=== PATIENT | male | born 1970 | race Caucasian/White ===

== ENCOUNTER → 2020-08-05 08:43 | Outpatient (CLI) | payer OTHER, SELFPAY ==
--- NOTE | 2020-08-06 12:53 | PFT ---
INTRODUCTION: The patient is a 50-year-old male that presents for pulmonary function studies secondary to a diagnosis of dyspnea on exertion. Respiratory therapy reports good patient effort. Bronchodilators were used during testing. INTERPRETATION: Forced expiration spirometry demonstrates no evidence of a large airways obstructive ventilatory defect. There was no significant response to aerosolized bronchodilators. Spirograms are of good quality and plateau normally. The respiratory flow volume loop is normal. Body plethysmography was performed and reveals lung volumes to be within normal limits. Diffusing capacity by single breath CO is also within normal limits. IMPRESSION: Grossly normal pulmonary function studies.
== END ==
PROVIDERS: PCP Nurse Practitioner; Referring Provider Nurse Practitioner; Visit Provider Nurse Practitioner
DX: R06.02 Shortness of breath (principal)
CPT/HCPCS: 94060; 94726; 94729

== ENCOUNTER 2020-11-29 12:03 | Emergency (ER) | payer OTHER, SELFPAY ==
[2020-11-29 12:04] VITALS: BP 152/95; PULSE 70; RESP 20; TEMP 35.9; BMI 26.2
[2020-11-29 12:55] LABS: Absolute Lymphocyte Count 1.45 X10^3/uL (0.83-4.51); Absolute Neutrophil Count 3.9 X10^3/uL (2.0-7.7); Basophil# 0.04 X10^3/uL; Basophil% 0.7 % (0-1); Eosinophil# 0.03 X10^3/uL; Eosinophils% 0.5 % (0-5); Hematocrit 49.4 % (40-54); Hemoglobin 16.5 g/dL (13.0-16.5); Lymphocyte # 1.45 X10^3/ul (0.83-4.51); Lymphocyte % 24.1 % (19-41); Mean Corp Hgb Conc 33.4 g/dL (32-36); Mean Corpuscular Hgb 30.6 pg (27.0-32.0); Mean Corpuscular Volume 91.7 fL (80-94); Mean Platelet Vol. 9.9 fl (6.2-12.0); NRBC Flagged by Analyzer 0 % (0-5); Neutrophil # 3.87 X10^3/uL (2.7-7.7); Neutrophil % 64.4 % (47-70); Platelet Count 260 K/mm3 (150-450); RBC Distribution Width CV 13.2 % (11.6-14.6); Red Blood Count 5.39 M/mm3 (4.6-6.2)
[2020-11-29 13:07] LABS: Anion Gap 5 (5-15); BUN 10 mg/dL (7-18); BUN/Creat Ratio 10.3 RATIO (10-20); Calcium,Total 9.5 mg/dL (8.5-10.1); Chloride 103 mmol/L (98-107); Creatinine, Serum 0.97 mg/dL (0.70-1.30); EST Glomerular Filtration Rate 87 mL/min (>60); Est Glom Filt Rate - Afr Amer 105 mL/min (>60); Estimated Creatinine Clearance 101.82 ml/min; Glucose 105 mg/dL (74-106); Potassium 3.9 mmol/L (3.5-5.1); Sodium Level 138 mmol/L (136-145)
--- NOTE | 2020-11-29 13:10 | CM.ED ---
SOCIAL WORK ASSESSMENT Referral Source: Dr. Lovell Reason for Consult: Suicidal ideation Chief Compliant: Patient presents with his from SERAFIN Zelaya?s office for suicidal ideation. Marital/Social History: - 6 years to , Marleny. Patient and have 2 children together, ages 4 and 3. 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 Mental Health Treatment/History: Anxiety and depression. Patient states is treated with medication- Lexapro which he has not taken consistently. Triggers/Stressors: work stress, loss of job 2 years ago Coping Skills: Patient reports unable to utilize coping skills. Patient reports would go for a walk, be with children. Abuse Issues: Patient denies any history of emotional, physical, or sexual trauma. Substance Abuse History: Alcohol. Patient denies his drinking is a problem. Patient reports last drink was 1 week ago. Risk to Self/Others: Suicidal- Patient reports suicidal thoughts that ?come and go.? When asked about a plan, patient stated ?drinking, or driving a car into something.? Patient denies any intent on acting on self-harm. Patient identifies protective factors being family. Patient and counseled on lethal means. Homicidal- Patient denies any homicidal ideation. Mental Status Exam: Orientation- A&Ox3 Memory: good Appearance/General Behavior: clean/appropriate Mood/Affect: depressed, anxious Communication Pattern: responds to questions Thought Process: linear, forward thinking Judgement: good Insight: good Assessment: Met with patient and in room. Introduced role and reason for referral. Patient gave permission for this worker to speak openly with present. Patient discussed history of anxiety and depression. Patient states ?never got over loss of job 2 years ago.? Patient reports feeling stressed with work and guilt from loss of job 2 years ago. Patient and state due to ?all the stress? from job held for the last 14 months, patient recently resigned. Patient and state patient needs to focus on mental health and ?getting better.? Patient voiced suicidal ideation and stated thoughts ?come and go.? Patient denied any intent to harm self. Patient and counseled on lethal means. Patient and report there is a 9mm gun in the home that will be removed. Patient and state gun has never been used and is not loaded. states will have her brother remove gun from home. Patient and do not feel inpatient treatment would be beneficial to patient. states patient will have 24-hour supervision if needed and state they have discussed patient?s mental health with family. Patient states his sister is coming to stay with them. Patient states has not been compliant with medication. Patient states will take Lexapro for a few weeks and then stop. Patient identified having withdrawal symptoms from starting and stopping medication that he was not aware could happen. Education, active listening, and emotional support provided to patient and . Discussed Behavioral Health Services. Patient and believe patient would benefit from program. Collaboration with Dr. Lovell. Plan for home with with intake appointment at [facility]. Safety plan completed with patient and . Intake appointment scheduled with [facility] for tomorrow, 11/30/[address] at 9:[address] Dr. Lovell, nurse-Neeta, and patient updated on appointment time and date. Plan: Safety plan home with family, intake appointment scheduled with [facility] tomorrow, 11/30/20 @ 9:30a with Brandon. Kahlil Lazar, DIGITAL SALES ASSISTANT, LOCAL DRIVER
[2020-11-29 13:49] LABS: Alcohol, Blood (Medical)-Serum < 3.0 mg/dL
--- NOTE | 2020-11-29 13:53 | EDS_ITS ---
HPI History of Present Illness Chief Complaint: Suicidal Informant: patient and spouse/S.O. Narrative Narrative: 50-year-old male presenting from primary care physician's office due to anxiety, depression, and suicidal thoughts. Patient recently quit his job. He is under a lot of stress. states he has been having delusions and difficulty determining what is real and what is not. He has had these symptoms in the past with stress. He has had intermittent suicidal thoughts. He denies specific suicide plan. Denies hallucinations. Denies drug use. Prior similar symptoms: Yes Recent Illness/Hospitalization: No PFSH PFSH Medical History (Updated 11/29/20 @ 13:[address] Josy Lovell MD) Anxiety Depression Hyperlipemia Social History Smoking Status: Never smoker ROS ROS ED Constitutional Constitutional ED: Denies fever(s) Eyes Eyes: Denies change in vision ENT ENT ED: Denies rhinorrhea or sore throat Cardiovascular Cardiovascular: Denies chest pain or palpitations Respiratory/Chest Respiratory/Chest: Denies cough or dyspnea Gastrointestinal Gastrointestinal: Denies abdominal pain, diarrhea, nausea or vomiting Musculoskeletal Musculoskeletal: Denies myalgias Integumentary Denies rash Neurologic Neurologic: Denies headache(s) Psychiatric Psychiatric: Reports anxiety and depression EXAM Physical Exam Const Vital Signs: 11/29/20 12:04 Temperature 96.7 F L Temperature Source Temporal Pulse Rate 70 Respiratory Rate 20 H Blood Pressure 152/95 H Blood Pressure Mean 114 MDM MDM MDM Narrative Medical decision making narrative: CBC, chemistries are unremarkable. Alcohol is negative. Covid is negative. Patient was seen by the social work in the emergency department. It is felt patient is safe for discharge home. Family is in agreement. He signed a safety plan. He was set up for intensive outpatient treatment and has an appointment tomorrow morning. Patient and family are agreeable with this plan. He denies suicidal plan at this time. Advised return to the ED for any worsening complaints. Lab Data Attestation: I reviewed the patient's lab results. Labs: Laboratory Results - last 24 hr 11/29/20 11/29/20 11/29/20 12:44 12:44 12:44 WBC 6.0 RBC 5.39 Hgb 16.5 Hct 49.4 MCV 91.7 MCH 30.6 MCHC 33.4 RDW Std Deviation 45.0 H RDW Coeff of Norman 13.2 Plt Count 260 MPV 9.9 Immature Gran % (Auto) 0.300 Neut % (Auto) 64.4 Lymph % (Auto) 24.1 Pettis % (Auto) 10.0 Eos % (Auto) 0.5 Baso % (Auto) 0.7 Absolute Neuts (auto) 3.9 Absolute Lymphs (auto) 1.45 Nucleated RBC % 0 Sodium 138 Potassium 3.9 Chloride 103 Carbon Dioxide 30.0 Anion Gap 5 BUN 10 Creatinine 0.97 Estim Creat Clear Calc 101.82 Est GFR (MDRD) Af Amer 105 Est GFR (MDRD) Non-Af 87 BUN/Creatinine Ratio 10.3 Glucose 105 Calcium 9.5 Ethyl Alcohol < 3.0 Discharge Plan Triage Chief Complaint: Suicidal ED Provider: Josy Lovell Dx/Rx/DC Orders Clinical Impression: Depression, Anxiety Instructions: CONTRACT, No Harm, ED Depression Primary Care Provider: Flory Zelaya NP Referrals: Flory Zelaya DIRECT RESPONSE CONSULTANT, DIRECT RESPONSE CONSULTANT-C [Primary Care Provider] - Disposition Disposition: Home, Self Care
[2020-11-29 14:09] VITALS: RESP 17
--- NOTE | 2020-11-30 19:15 | CM.ED ---
ORESTES Note Follow up on Safety Plan ORESTES called Omero's cell phone. Went to voice mail. ORESTES called Marleny, patient's . She said that they went to [facility] this morning and Bal feels that patient needs inpatient. Marleny said I thought you were him calling. Marleny said that Bal is working on placement. ORESTES called Bal at [facility]. He said that this morning patient denied SI but had racing thoughts, focused on past, and was delusional. He said that reported that patient thinks that Bal is making a movie about him. Bal said that patient is decompensating and not making sense. Bal said that the was talking about the inpatient psych hospitalization and patient said what about the flight. Bal is working on direct inpatient admit to [facility]. ORESTES called Marleny, patient's . She said that patient has been admitted at [facility]. She was tearful and said that she has people with her and that she will be alright. Advised her to contact the hospital with any concerns or needs and Marleny indicated she would. No further SW needs at this time. Sara FLORES
== END 2020-11-29 14:10 | disposition home or self-care (01) ==
PROVIDERS: Emergency Provider Emergency Medicine; PCP Nurse Practitioner
DX: F32.9 Major depressive disorder, single episode, unspecified (principal); F41.9 Anxiety disorder, unspecified; R45.851 Suicidal ideations
CPT/HCPCS: 80048; 82077; 85025; 87426; 99283

== ENCOUNTER 2020-12-14 09:22 | Outpatient (RCR) | payer OTHER, SELFPAY ==
--- NOTE | 2020-12-14 10:10 | BH.SGPN.GN ---
Behaviors/Verbalizations/Mental Status: [] Eye contact is good. Motor activity is appropriate. Appearance is casual. Speech is Appropriate. Mood is anxious. Affect is congruent. Thoughts are linear and logical. No evidence of psychosis. Client Response/Progress/Benefit: [] Pt was an active participant in group discussion. Attentive during psychoeducation on communication styles (Passive, Passive-Aggressive, Aggressive, and Assertive) and benefits/disadvantages to each style. Along with peers pt participated in providing insight into the benefits to effective communication on mental health which included; helps us get needs met, resolves problems, improves relationships, increases clarity, clears ups expectations, decreases stress, and increases productivity. Pt along with peers able to identify ways that communication can be misinterpreted through tone, texting, body language and assumptions. Pt identified his most frequently used communication style as passive. Benefited from increased awareness of different communication styles and the importance of communicating effectively to improve mental wellness. Will continue in IOP to prevent decompensation, stabilize mood, and increase healthy coping. Narrative Note: []
--- NOTE | 2020-12-14 11:15 | BH.SGPN.GN ---
Behaviors/Verbalizations/Mental Status: []Client alert and oriented, neat and casually dressed and appropriately groomed. Eye contact good. Motor activity appropriate. Speech WNL. Affect congruent, mood euthymic and anxious. Thoughts linear, logical, no signs of hallucinations or delusions. Client Response/Progress/Benefit: []Client new to IOP treatment. He responded well to session AEB listening attentively to others, taking notes, and providing input during group discussion. Client engaged throughout the challenge activity and identified the importance of patience when communicating with supports. Attentive during psychoeducation on interpersonal DBT skill NINOSKA and client selected a communication skill to practice. Client stated that he struggles with being passive at home and would like to be more assertive about his mental health needs with his supports. Client selected wanting to practice expressing first to himself how certain situations make him feel before trying to communicate this information with his supports. Shared he would feel more confident in explaining his emotions that way. Client seemed to benefit from increasing awareness of healthy strategies to improve communication. Will continue IOP tx to increase healthy coping, improve mood stability, begin breaking maintenance cycles, as well as prevent decompensation. Narrative Note: []
--- NOTE | 2020-12-14 16:02 | BH.COMM ---
Communication Note - Communication with Client Communication Note: Met with patient and completed initial paperwork at 830a. Completed [place] Suicide Screening and pt is low risk.
--- NOTE | 2020-12-21 10:06 | BH.SGPN.GN ---
Behaviors/Verbalizations/Mental Status: [] Client alert and oriented, casually dressed and groomed. Eye contact good. Motor activity appropriate. Speech within normal limits. Affect congruent, mood anxious and depressed. Thoughts linear, logical, no signs of hallucinations or delusions. Client Response/Progress/Benefit: [] Pt was well engaged in group AEB taking notes, listening attentively, and providing input throughout. Attentive during psychoeducation and discussed the importance of goal-setting with the group. Pt indicated ?We can fall short of our goals if we have unrealistic expectations of ourselves.?. Group identified potential benefits of having goals include: they motivate, increase self-esteem, and are needed to have progress, give a sense of accomplishment, and provide a sense of purpose. Group also worked together to identify barriers to goal-setting which included; negative self-talk, lack of motivation, unrealistic expectations, and procrastination. Pt identified personal barrier as complacency and lack of support from others. Benefited from increased awareness of benefits and barriers to goal-setting. Pt will continue in IOP to prevent decompensation, promote implementation of healthy coping skills, and improve daily functioning. Narrative Note: []
--- NOTE | 2020-12-23 11:16 | BH.SGPN.GN ---
Behaviors/Verbalizations/Mental Status: []Client alert and oriented, casually dressed and groomed. Eye contact fair to good. Motor activity appropriate. Speech within normal limits, quiet. Affect congruent, mood dysthymic and anxious. Thoughts linear, logical, no signs of hallucinations or delusions. Client Response/Progress/Benefit: []Pt did well to remain attentive and actively engaged throughout session. Reported connecting with discussion reviewing potential benefits of recognizing personal strengths and more consistently taking a strengths-based approach in addressing stressors and managing mental health symptoms. Completed strengths exploration worksheet and identified personal strengths to include: open-mindedness, fairness, empathy, patience, and persistence. Pt shared that these personal strengths could aid in improving his own ability to be patient with himself as he works on improving his understanding and management of mental health sx. Shared wanting to focus on fostering personal strength of honesty both with himself and his supports to normalize mental health treatment and reduce his own stigma surrounding mental health. Benefited from identifying personal strengths and strategies for enhancing use of identified strengths. Pt to continue IOP tx to further enhance acceptance and use of supports, continue to maintain improved mood stability, and prevent decompensation. Narrative Note: []
--- NOTE | 2020-12-27 09:05 | BH.SGPN.GN ---
Behaviors/Verbalizations/Mental Status: Eye contact is good. Motor activity is appropriate. Appearance is casual. Speech is Appropriate. Mood is euthymic. Affect is congruent. Thoughts are linear and logical. No evidence of psychosis. Reviewed daily check in sheet and no reports of suicidal ideations or intent. Client Response/Progress/Benefit: Client was attentive and engaged throughout session. Client's emotion of the day was positive, and reported a win as going to his in-laws and taking a hike with his family. Client also stated that he set up times to go hiking with his [id number] as coping mechanism and a way to get out into nature. Client identified a stressor as being unemployed but stated that he set up a meeting with his former boss to discuss his strengths and where he should go with his career. Clinician and group reinforced that positive of knowing where to start, which client seemed to benefit from. Client set boundary with family to take one hike in order to rest due to having trouble sleeping at night. Client reported moderate-severe depressed mood per daily symptom tracker, along with low-moderate anxiety and agitation. Will continue IOP treatment to reduce depression symptoms and improve general mood. Narrative Note: []
--- NOTE | 2020-12-27 10:08 | BH.SGPN.GN ---
Behaviors/Verbalizations/Mental Status: []Client alert and oriented, casually dressed and groomed. Eye contact good. Motor activity appropriate. Speech within normal limits. Affect constricted, mood anxious and depressed. Thoughts linear, logical, no signs of hallucinations or delusions. Client Response/Progress/Benefit: [] Client engaged in session AEB taking notes and contributing some to discussion; however, remained a mostly passive participant throughout. Client shared connecting with the importance of setting boundaries and noted that boundaries ?boundaries allow us to stand up for ourselves and express what?s important for us.?. Client assisted group with identifying benefits of setting boundaries such as reduced stress, clearer guidelines and expectations, better able to get needs met, and increased self-esteem. Attentive and nodding throughout discussion on barriers to setting and maintaining healthy boundaries. Listened and engaged during psychoeducation on different types of boundaries. Client seemed to benefit from increased awareness of how boundaries impact mental health and the different types of boundaries there are. Progress noted in client reports of increased acceptance of his mental health diagnosis and continuing to improve in tx engagement. Will continue IOP tx to improve mood stability, continue to provide increased insight and understanding of diagnosis, and further improve communication and active utilization of supports. Narrative Note: []
--- NOTE | 2020-12-29 11:18 | BH.SGPN.GN ---
Behaviors/Verbalizations/Mental Status: []Eye contact is good. Motor activity is appropriate. Appearance is neat and casual. Speech is Appropriate. Mood is anxious. Affect is congruent. Thoughts are linear and logical. No evidence of psychosis. Client Response/Progress/Benefit: []Pt was an active participant, taking notes and nodding throughout group discussion and activity. Attentive during psychoeducation on cognitive distortions not discussed in previous group. Pt was an active participant in Cognitive Distortions Jeopardy, providing increased input and suggestions to small group throughout. Engaged in game as patient utilized notes from psychoeducation on cognitive distortions to answer questions. Able to practice re-framing cognitive distortions with peers to obtain points for the game. Experiential activity was beneficial as it provided a way for patient to review notes and handouts during psychoeducation to answer questions for the game. Pt reports increased understanding of some of the distorted thoughts he struggles with in his own life. Will continue in IOP tx to improve mood stability, decrease stigma associated with mental health struggles, increase healthy coping, and improve functioning. Narrative Note: []
--- NOTE | 2020-12-30 11:12 | BH.SGPN.GN ---
Behaviors/Verbalizations/Mental Status: []Client alert and oriented, casually dressed and groomed. Eye contact good. Motor activity appropriate. Speech within normal limits. Affect constricted, mood dysthymic, anxious. Thoughts linear, logical, no signs of hallucinations or delusions. Client Response/Progress/Benefit: []Client responded well to session, engaged in the experiential activity and providing input throughout. Client completed the fear of failure worksheet and reported that fear of failure has kept client from ?quitting unhealthy habits?, ?believing in my abilities?, and ?maintaining relationships?. Client able to identify thoughts and behaviors that reinforce personal fear of failure which included: self-doubt, past negative experiences, fear of negative outcomes, and fixed thinking?. Client attentive during discussion of the different strategies to help overcome fear of failure. Identified wanting to work on using more consistently communicating and reaching out to his healthy supports to overcome fear of failure. Client has made progress with reducing some stigma associated with mental health diagnosis and making a more consistent effort to begin applying healthy coping skills. Client will continue IOP tx to promote mood stability and improve communication with supports. Narrative Note: []
== END 2020-12-14 23:59 ==
LOC: BHIOP 09:22
PROVIDERS: PCP Nurse Practitioner; Visit Provider Psychiatry & Neurology Psychiatry
DX: F31.64 Bipolar disorder, current episode mixed, severe, with psychotic features (principal)
CPT/HCPCS: S9480; 90853

== ENCOUNTER 2020-12-15 08:31 | Outpatient (RCR) | payer OTHER, SELFPAY ==
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
--- NOTE | 2020-12-15 10:10 | BH.SGPN.GN ---
Behaviors/Verbalizations/Mental Status: [] Eye contact is good. Motor activity is appropriate. Appearance is neat. Speech is Appropriate. Mood is anxious. Affect is congruent. Thoughts are linear and logical. No evidence of psychosis. Client Response/Progress/Benefit: [] Pt was an active participant in group discussion and activity. Attentive during psychoeducation on coping skills. Pt along with peers worked together to identify unhealthy coping skills such as; avoidance, sleep, substances, isolation, shopping, self-sabotage, not taking prescribed medications, and self-harm. Group was able to identify why people use unhealthy coping skills such as; easy, comfortable, work in the short-term, perceive them as quick fix, and its harder to use healthy coping skills. Pt was able to make connection between the activity (tower building) and the importance of having a strong base/foundation of both internal and external coping skills. Benefited from increased understanding of unhealthy coping skills and the need for developing healthy interna and external coping skills. Pt will continue in IOP to prevent decompensations, prevent readmission to psych, and increase healthy coping skills. Narrative Note: []
[2020-12-15 11:08] VITALS: BP 130/81; PULSE 65
--- NOTE | 2020-12-15 11:10 | BH.SGPN.GN ---
Behaviors/Verbalizations/Mental Status: []Client alert and oriented, neatly dressed and groomed. Eye contact good. Motor activity appropriate. Speech within normal limits. Affect constricted, mood euthymic. Thoughts linear, logical, no signs of hallucinations or delusions. Client Response/Progress/Benefit: []Client responded well to session, taking notes, and quiet unless prompted. Group discussed the different categories of coping skills which included distraction, emotional release, grounding, self-love, and thought challenging. Client participated in creating a coping skills ?menu? from the different categories of coping skills. Client's coping skill menu included: taking a 20-minute rest, meditation, body scan, and deep breathing. Appeared to benefit from increasing repertoire of healthy coping skills. Client?s first week of IOP tx. Will continue tx to prevent decompensation, improve overall functioning, and gain healthy coping skills. Narrative Note: []
--- NOTE | 2020-12-15 12:39 | BH.PSY.EVA_ITS ---
Psychiatric Evaluation Initial Evaluation Initial Evaluation: History of Present Illness: [] The patient is a 50-year-old male who was recently diagnosed with bipolar 1 disorder with psychosis when he was admitted to [facility] from November 30 to December 04, 2020. At the time of that admission the patient was disorganized, confused, had suicidal ideation and had delusions of paranoia and guilt. He was unable to care for himself at that time. The patient was referred to the [facility] behavioral health IOP program by the [place] emergency room. The patient has been for 6 years and has 2 children ages 4 and 3. He currently lives at home with his and children. For primary support he has his , sister and friends. The patient feels that his recent psych admission was triggered by quitting his job of 14 years due to being overwhelmed at work. 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 The patient moved to this area from [facility] 2 years ago. He lost his job in March 2019 and this also triggered an episode similar to this but not as severe according to the patient. The job he lost in 2019 he had had for over 30 years. Then due to Covid and the daycare being close the patient stayed home with his 2 young children for about 2 or 3 months. The patient states that since being discharged from the hospital 2 weeks ago he feels much better. He has a lot less stress. He feels very motivated to get better and wants to start exercising again. He used to do weights and cardio but since his first child was born 4 years ago has been unable to do this. Patient also wants to get a new job soon as he does not like not working. He states that exercise was his coping skill before he had children. He and his have moved 3 times in the past 5 years and in addition another stressor was that they lost a child at 24 weeks intrauterine recently. He describes his mood is still depressed but less depressed than he was before. He denies hopelessness and worthlessness. He does admit to feeling guilty over losing his job 2 years ago and having to quit his job now. He enjoys outdoor activities and hiking. His appetite is a little bit decreased in his sleep is about 6 hours a night but he wakes up a few times during the night. His energy level is okay overall. Concentration is better than it was when he was admitted but still a little decreased. The patient has no passive thoughts of . He denies any suicidal ideation or plan for suicide. He also denies homicidal ideation, hallucinations or delusions. He does admit he has some leftover feelings that he is still a little paranoid but he knows that this is not true. Per the patient his says that he gets like this once in a while but less severe in the past. 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 Patient denies any history of self-harm. He is currently worried about his job issue but denies any panic attacks. He admits he had panic attacks before his admission in November 2020. He denies OCD, eating disorder, trauma or PTSD. He had 2 concussions in the past in the but no seizures. Current Psychiatric Medications: [] Abilify 5 mg every morning and 10 mg p.o. nightly (x2 weeks); trazodone 50 mg p.o. nightly; Remeron 30 mg p.o. nightly (his outpatient provider discontinued this last week and he feels his sleep is better now). Past Psychiatric History: [] The patient has had 1 psychiatric admission in the past as described above in November 2020. No suicide attempts ever. The patient was first depressed in 11th grade but did not take medications. He denies any marc when he was younger. He does admit to a history of anxiety and depression. He first took psychiatric meds at age 29 for anxiety and he felt that Wellbutrin helped him in the past. He has been on and off meds for this since age 29. He has no current psychiatric providers. His past medications and clued Lexapro, Celexa in 2019. He had counseling during his first marriage individual and marital in 2009. In 2019 he had 2 counseling sessions and they were kind of helpful. Substance Use History: [] Non-smoker. No vaping. He has used alcohol 3-4 times a week he has 2-3 drinks after work. Since discharge from the hospital he has 3 drinks in the last 2 weeks. His drinks include 1 shot of alcohol and a mixed drink. The patient denies any other drug use ever except for marijuana early in college. No rehab ever. Allergies: [] No known allergies Medications: [] Atorvastatin, multivitamin and fish oil. He had discontinued the statin and since restarting it does have increased joint pain. Past Medical History: [] Patient feels he has fibromyalgia and has had joint pain for 20 years. He has gluten intolerance. He has high cholesterol. Medical history otherwise negative. He has had back surgery and appendectomy in the past. Family Psychiatric History: [] His mother is 79 years old and his father is 82 years old. His mother has depression and anxiety and his father has anxiety but untreated. Mother takes Paxil. No suicides in the family. His paternal uncles and father are alcoholic and he has cousins who use drugs. Father and sister also have fibromyalgia. Personal/Social History: [] Patient was born and raised in [place] and describes his childhood as good. His parents were and were loving. He has 3 sisters and 1 brother and the patient is the middle child and is close to his siblings. He denies any verbal, physical or sexual abuse ever. School was okay for him and he graduated high school. He went to college and got a BA in business and finance. 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 See present illness for rest of work history. He got for the first time at age 34 and this marriage lasted 7 years and produced no children. They after 7 years because they grew apart and his did not want children. No abuse in the marriage. Marriage #2 was at age 44 and this is the current marriage. They have a 4-year-old and 3-year-old daughter. He feels his is supportive of him. Legal History: [] No arrests. 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 No DUIs. No . Review of Systems: [] Joint pains due to fibromyalgia. Vital Signs: [] Reviewed in nurses notes. Mental Status Examination: [] Patient is a 50-year-old male who is seen wearing a mask due to the pandemic and appears fit and younger than stated age. He is cooperative during the interview and has no psychomotor agitation or retardation. Eye contact is good and speech is normal rate and rhythm and fluent with no pressure. Mood is depressed and anxious. Affect is full and normal. Thought process is organized and goal-directed. Thought content: There is no evidence of thoughts of , suicidal ideation, plan for suicide, homicidal ideation, hallucinations or delusions. The patient has some leftover believes that maybe someone is watching him but he knows that this is not true now. Reality testing is intact. Intelligence is average or above average. Judgment is intact. Insight is good. Impulsivity is moderate. Diagnoses: [] 1. Bipolar 1 disorder, 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, severe with psychosis (resolving, F 31.64) 2. Anxiety disorder, NOS (F 41.9) 3. Alcohol use disorder 4. Primary support and work issues Plan: [] The patient will start the IOP program at [facility] as the structure, education, support, and group therapy will hopefully prevent worsening of the patient's symptoms which might require rehospitalization. He felt safe during the interview and if it anytime he does not feel safe he will let us know or go to the emergency room. The risks, options and possible complications and side effects of his medications were discussed with the patient and he understands and accepts these. No medication changes were made today. The risk of brain damage with recurrent psychosis was discussed with the patient and he understands he should stay on his medications for preferably 6 months to avoid any reoccurrence of his symptoms. He has a CAT scan scheduled to rule out any other causes of his psychosis. He will continue to follow-up with his outpatient psychiatric and medical providers. The patient request that his be able to meet with me and I agreed to meet with him in 1 week in order to talk with his also.
--- NOTE | 2020-12-15 12:53 | BH.DR.ITP ---
Initial Treatment Plan Patient Information Visit Information: ADMISSION DATE: EXPECTED LOS: 4-6 weeks Problems/Symptoms Problem #1:: Mood instability Symptom:: Depression, history of marc, decreased appetite, decreased concentration, guilt, resolving psychosis from a mixed episode Problem #2:: Anxiety Symptom:: Rumination, worry, history of panic attacks
--- NOTE | 2020-12-16 09:10 | BH.SGPN.GN ---
Behaviors/Verbalizations/Mental Status: [] Eye contact is good. Motor activity is appropriate. Appearance is casual. Speech is Appropriate. Mood is depressed. Affect is flat. Thoughts are linear and logical. No evidence of psychosis. Reviewed daily check in sheet and no reports of suicidal ideations or intent. Client Response/Progress/Benefit: [] Pt participated when prompted in group discussion. Attentive. Emotion for today is hopeful. Shared mental health win is that he is noticing that better mood management around stressful situations at home. Progress noted per pt report. Benefited from group support and encouragement. Will continue in IOP to prevent decompensation and to improve functioning Narrative Note: []
--- NOTE | 2020-12-16 11:11 | BH.SGPN.GN ---
Behaviors/Verbalizations/Mental Status: []Client alert and oriented, casually dressed and groomed. Eye contact good. Motor activity appropriate. Speech within normal limits. Affect congruent, mood anxious and dysthymic. Thoughts linear, logical, no signs of hallucinations or delusions. Client Response/Progress/Benefit: []Client an active participant throughout AEB contributing to discussion and taking notes. Client participated in discussion on the 5 ways our supports can support us (emotional, tangible, affirmational, network/belonging, and instructional) and the group listed examples for all types. Client reports wanting to work on increasing network/belonging support as client feels this will help him feel more connected with others and less alone in his mental health experiences. Client plans to do this by making more of an effort to identify potential support groups/organizations to get involved with post IOP completion. [facility] Client seemed to benefit from identifying the type of support and how this support will aid in promoting overall mental wellness. Will continue IOP tx to prevent decompensation, continue to promote mood stability, and improve daily functioning. Narrative Note: []
--- NOTE | 2020-12-16 11:24 | BH.MDN ---
Multi-Disciplinary Note - Note 60-min Individual Time Started:: 10:20 Date: 12/16/20 Purpose of session/treatment goals addressed:: Review current symptoms and progress in IOP. Used sessions to begin treatment planning. Eye Contact:: Good Motor Activity:: Appropriate Appearance:: Casual Speech:: Appropriate Mood:: Anxious Affect:: Congruent Thoughts:: Linear, Logical, No evidence of hallucinations/delusions noted Staff Interventions:: psychoeducation on: - Bipolar, mindfulness skills - 5 senses, grounding, education on benefits and purpose of mindfulness, treatment planning, goal setting - Encouraged to look up celebrities with bipolar and bipolar support alliance to decrease stigma Client Response:: Pt reports being hopeful today. Purpose of the session was to begin to complete treatment plan and goals. Pt identified his goals are to learn coping and self-care skills. Reports that he wants to better understand how he gets into certain destructive behaviors. He was interested in learning meditation and getting back into nature. Was encouraged to start small with mindfulness skills. Provided education on what mindfulness is and its purpose. Was receptive to skills. Pt also wanted to learn more about recent diagnosis of Bipolar. Admits that he and his did not agree with the diagnosis and actually asked their PCP to take him off the medications despite them being effective and resolving psychosis. Was receptive to education on Bipolar. Risks/Concerns:: no risks or concerns noted. Progress Toward Goals/Plan:: Pt has been engaged and consistent with IOP this week. Reports being hopeful and is benefiting from support in the program. Admits to stigma associated with Bipolar diagnosis however after discussion regarding criteria he was more receptive. Continues to report racing thoughts which impact focus and concentration. Motivated and engaged in IOP and treatment. Will continue in IOP to prevent decompensation, increase healthy coping skills, and to improve functioning. Time Stopped:: 11:25
--- NOTE | 2020-12-16 14:38 | BH.MTP ---
Master Treatment Plan - Patient Information Program Physician:: Caity Walls Primary Therapist:: Bal Forbes - Psychiatric Diagnoses Psychiatric Diagnoses:: 1. Bipolar 1 disorder, 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, severe with psychosis, resolving. 2. Anxiety disorder, NOS Diagnosis Code(s):: F31.64 - Estimated LOS Estimated LOS (in weeks):: 6 Problem/Goal #1 - Problem/Goal #1 Stated Goal:: Achieve controlled behavior, moderated mood, more deliberative speech and thought process, and a stable daily activity pattern. Client will also increase mood stability reduce depression AEB DSM-5 Cross-cutting scales. Description of Barriers: Limited coping skills, excessive guilt, recent loss of job Functional Impact: Erratic mood, marc, and excessive guilt led to recent loss of job and psychiatric hospitalization. - Objectives Objective #1 Stated Objective: Client will learn and utilize 2-3 healthy coping strategies to better manage depressive and mood symptoms as shown by reduced DSM-5 scores and self-reported improvement. Interventions: Through individual and group counseling will teach client various coping skills to manage symptoms and give tangible resources to use to regulate emotions. Therapist will use cognitive restructuring techniques and help client gain awareness of negative thoughts that reinforce depressive cycles. Discharge Criteria: Will identify and begin to implement 2-3 healthy coping strategies Target Date: 01/25/21 Review Date: 01/12/21 Objective #2 Stated Objective: Client will increase understanding of bipolar illness Interventions: Through individual, family, group, and meetings with psychiatrist pt will increase awareness of Bipolar Disorder to decrease stigma. Discharge Criteria: Pt will self-report increase awareness and be able to identify symptoms, triggers, and importance of medication in regards to Bipolar disorder. Target Date: 01/25/21 Review Date: 01/12/21 Problem/Goal #2 - Problem/Goal #2 Stated Goal:: Client will increase emotional regulation and reduce intensity and duration of anxiety symptoms AEB reduction in DSM-5 cross-cutting anxiety scales. Description of Barriers: Limited coping skills, excessive rumination, Functional Impact: Anxiety, rumination, and fear contributed to recent psychosis leading to hospitalization. - Objectives Objective #1 Stated Objective: Client will identify 2-3 cognitive distortions that lead to rumination and learn 2-3 ways to manage these thoughts to better manage anxiety as shown by reduced DSM-5 scores for anxiety. Interventions: Through individual and group counseling will provide education on the most common cognitive distortions and teach client the connection between thoughts, emotions, and feelings. Therapist will assist client in identifying, challenging, and replacing dysfunctional thoughts with positive, more realistic thoughts. Discharge Criteria: Able to identify 2-3 cognitive distortions that exacerbate anxiety and 2 ways to challenge or better manage these distortions. Target Date: 01/25/21 Review Date: 01/12/21
--- NOTE | 2020-12-16 14:38 | BH.PSA ---
Source of Information - Presenting Problems/Circumstances Problems, Referral Source, Mental Status, Client: Referred to [facility] by [facility] psychiatric unit due to psychosis. Psychiatric Presentation - Psych Issues & Need for Admission Psychiatric Issues:: Recent Bipolar dx, psychosis, disorganized thoughts, irrational guilt, fleeting SI, Past Psychiatric History - MH Treatment Hx First hospitalization:: [facility] 12/04 Most recent hospitalization:: refer above Medication Trials:: No ECT Therapy:: No Age of first mental health symptoms: Pt reports depression and anxiety while in the 11th grade Describe (age, circumstance, etc) any past hospitalizations: Was admitted to [facility] on 11/30/20 due to disorganized thoughts, irrational guilt, fleeting SI, restlessness, and paranoia. Current providers for mental health treatment (counselor, psychiatrist, case folder, etc.): Pt was set up with intake appointment and psychiatrist through [facility]. Appt with psych on 12/22/20 Development & Family of Origin - Childhood Significant Childhood Events: Pt denies any significant childhood events - Family Who currently lives in your home?: Currently lives with his (2nd marriage) and two children (3 and 4) - Family History Family Hx of Psychiatric or AOD Problems: Mother- Depression. Father- Anxiety, Alcoholism Ethnicity - Culture Do you identify yourself with any particular cultural, ethnic background, or community?: No - Sexuality Sexual Orientation: Heterosexual Spirituality - Mormonism Do you currently identify with any organized jain?: Voodoo - Beliefs Is there a particular form of support from this community you can use for your recovery?: Yes Mental Status - Memory Recent Memory: Fair Remote Memory: Fair - Concentration Concentration: Fair - Eye Contact Eye Contact: Fair - Speech Speech: Articulate - Thought Process Thought Process: Logical, Ruminations Insight: Poor Judgment: Fair Delusions: Paranoid Behavior: Anxious - Orientation Orientation: Time, Person, Place, Situation - Appearance Appearance: Appropriate - Mood Mood: Anxious, Depressed, Fearful - Affect Affect: Alert, Flattened Suicide Assessment - Suicidal Ideation Have you ever felt like hurting yourself?: Yes Please explain:: Pt reported suicidal ideations with thoughts about methods prior to psychiatric admission on 11/30/20. Thoughts were fleeting. Presented to [facility] ER on 11/29/20 and safety plan developed. Gun removed from home by his . Were you using ETOH/drugs at the time?: No Suicidal Intentional Rating Scale (SIRS): Suicidal thoughts (past) Physician Notification: If Active suicidal thoughts/Will not contract for safety is checked, contact physician and document in the Physician Notification section below. Violent Behavior/Abuse History - Homicidal Ideation Do you have any homicidal thoughts? If so, explain:: No Is there a known potential victim? If yes, who:: No - Abuse Have you ever been abused?: No - Life Events Are there any other significant life events?: Financial loss - Recently resigned from his job. - Safety Do you ever feel threatened in your home? If yes, describe:: No Substance Use - Substance Substance Use Type: Alcohol - Pt reports drinking 2-4 times weekly. Typical use is 2 drinks (shot and beer/mixed drink) - IV Substance Use Do you have a history of IV use?: denies - Additional Information Additional Comments:: Pt denies any hx of withdrawal symptoms. He describes his use as minimal however admits to use when stressed or anxious. Leisure/Social Activities - Interests What do you enjoy or might be interested in learning about?: Wants to learn more about Bipolar and better ways to leasing manager anxious thoughts. Education & Occupational Histo - Education What is your level of education?: Bachelor Degree - BA- Business Do you have any learning disabilities?: No - Occupation List any current or past employment:: [employer]- 20 years, resigned. [employer]- 1 year, recently resigned due to mental health List any previous volunteering you may have done:: denies Service - Service Have you ever been in the ?: No Legal History - Records Have you had any past legal charges?: No Do you have any current legal charges?: No Have you ever been incarcerated? If yes, describe:: No - Court Orders Have you had any past court orders for psychiatric treatment?: No Do you have a present court order for psychiatric treatment?: No Problem Checklist - Current Problem Areas Problem List: Depressed mood/sad, Anxiety, Psychosis, Mood swings/hyperactivity, Additional psychosocial stressors - unemployed Discharge Planning Needs - Anticipated Follow-Up Mental Health Center (Name/Phone Number):: [facility] Private Therapist/Psychiatrist:: Neisha Hendrix NP Family and Caregiver Contacts:: Marleny Kam- Release of Information Signed:: Yes Button Buttonhole Marker's Assessment - Client's Needs What are the client's feelings about the program?: Pt reports being motivated to help stabilize his mood and learn ways to prevent relapse. What are the client's goals?: Increase education about Bipolar. Decrease impact of anxiety of functioning. Decrease guilt What are the client's strengths?: Motivated, hard-worker Diagnoses - Diagnoses Diagnosis #1:: Bipolar 1 disorder, 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, severe with psychosis Diagnosis #2:: Anxiety disorder, NOS (F 41.9) Interpretive Summary - Interpretive Summary Interpretive Summary: Pt is a 50 year old male with a recent diagnosis of Bipolar. Recent admission to [facility] from 11/30/20-12/04/20 due to delusions, paranoia, racing thoughts, intrusive thoughts, restlessness, and suicidal ideation. Pt was unable to function due to mental health for several days prior to admission. Pt presented to pre-admission screening for PHP here at [facility] on 11/30/20 with fleeting sucidal thoughts and delusions. Per excessive guilt with no basis in reality. Pt was hyperfocued on past mistakes and his need for atonement, being a failure, and being a bad person. Pt reported poor sleep, poor appetite, erratic energy, restlessness throughout the day, and inability to make any decisions for himself. At that time pt reported suicidal thoughts with methods which were fleeting. was watching pt 06/11 and removed guns form the home. Frequent panic attacks. Pt reports improved functioning since discharge from psychiatric unit. He presents alert and oriented. Denies HI or psychosis. Does Treatment Plan Recommendations - Recommendations Guidelines: Special needs identified to be included in the development of an individualized treatment plan regarding past psychiatric history and treatment, developmental events, family relationships/events/culture, past and/or current educational, occupational, social, and residential experience, and legal status. Recommendations:: Due to recent psych hospitalization recommended [facility] level of care.
--- NOTE | 2020-12-21 09:10 | BH.SGPN.GN ---
Behaviors/Verbalizations/Mental Status: [] Eye contact is good. Motor activity is appropriate. Appearance is neat. Speech is Appropriate. Mood is anxious. Affect is congruent. Thoughts are linear and logical. No evidence of psychosis. Reviewed daily check in sheet and no reports of suicidal ideations or intent. Client Response/Progress/Benefit: [] Pt participated when prompted. Attentive. Does not provide feedback to peers. Emotion for today is ?intrigued?. Mental health wins include spending time with kids. He going on walks throughout the day as well. Is trying to focus on the benefits on being off work which include spending time and making memories with challenge rather than ruminating on ?not working?. 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 Guilt, regret, and what if thoughts were intrusive over the weekend. Progress noted per pt report. Benefited from group support, encouragement, and feedback. Will continue in IOP to prevent decompensation, increase healthy coping, and to improve functioning. Narrative Note: []
--- NOTE | 2020-12-21 11:15 | BH.SGPN.GN ---
Client Response/Progress/Benefit: []Pt was an active participant in group discussions and activities. Engaged in activity. Pt connected with discussion that setting a realistic goal is important so don't get discouraged and quit. Pt completed worksheet in which he identified a goal, potential barriers and potential solutions to help him accomplish identified goal. Pt chose to not share his gaol with group. Seemed to benefit from group by being able to utilize SMART educate to create a goal. Pt to continue IOP to stabilize moods, increase healthy coping and prevent decompensation. Behaviors/Verbalizations/Mental Status: []Client alert and oriented, casually dressed and groomed. Eye contact good. Motor activity appropriate. Speech within normal limits. Affect congruent, mood euthymic. Thoughts linear, logical, no signs of hallucinations or delusions.
--- NOTE | 2020-12-22 11:15 | BH.SGPN.GN ---
Behaviors/Verbalizations/Mental Status: []Client alert and oriented, casually dressed, hygiene appeared to be tended to. Eye contact good. Motor activity appropriate. Speech within normal limits. Affect constricted, mood euthymic. Thoughts linear, logical, no signs of hallucinations or delusions. Client Response/Progress/Benefit: []Client engaged participant AEB pt provided some input during small group discussion, taking notes and listening attentively to others. Group brainstormed strategies to combat social and perceived stigma which included: educating others, no longer using negative language about mental illness, being open about mental health, and not reinforcing stigma with behaviors or labels. Client did not share goal to challenge mental health stigma. Appeared to benefit from increasing awareness of strategies to combat stigma. Will continue IOP tx to stabilize moods, increase healthy coping and prevent decompensation. Narrative Note: []
--- NOTE | 2020-12-22 12:25 | PCM.BH.PN ---
Progress Note Progress Note: History of Present Illness/Interim History: [] The patient is a 50-year-old male who is seen in follow-up at the [facility] behavioral health IOP program 1 week after his initial visit in order that his could attend the appointment and have some questions answered. His was present with the patient for the appointment. The patient's was last seen 1 week ago and his symptoms remain in essence unchanged from 1 week ago. He does feel somewhat better as he feels that the IOP program is teaching him valuable skills. Long discussion was had with the patient and his and the expressed the fact that she feels his stresses which have been many in the past few years have contributed to his exacerbation of his symptoms. His states that he was not psychotic several years ago when he lost his job in March 2019. The patient had implied that his symptoms were similar but not quite as severe. Discussion was had about the diagnosis of bipolar disorder versus major depressive disorder with psychosis versus psychosis, NOS. Discussed with the patient that his true diagnosis will be discovered when he gets a longer term psychiatrist and sees that person on a regular basis. I reiterated the need to stay on medications for at least 3 to 6 months to avoid relapse of symptoms. In the course of the discussion it was revealed that the patient last took his Lexapro just before he deteriorated and went into the hospital. Discussed with them that this could indicate that the Lexapro triggered his mixed episode that he was admitted for. Patient continues to try to avoid alcohol use and has had only a few drinks in the past 2 weeks. Current Psychiatric Medications: [] Abilify 5 mg p.o. every morning and 10 mg p.o. nightly (x3 weeks now).; Trazodone 50 mg p.o. nightly Mental Status Examination: [] The patient is a 50-year-old male who is seen wearing a mask due to the pandemic and appears younger than stated age. He is cooperative during the interview and his eye contact is good. He has no psychomotor agitation or retardation. Speech is normal rate and rhythm and fluent with no pressure. Mood is depressed and mildly anxious. Affect is constricted. Thought process is organized and goal-directed. Thought content: There is no evidence of thoughts of , suicidal ideation, plan for suicide, homicidal ideation, hallucinations or delusions. His leftover remnants of his delusions are still present but he does know that they are not reality. Reality testing is intact. Judgment is intact. Insight is good. Impulsivity is mild to moderate. Diagnoses: [] 1. Probable bipolar 1 disorder, 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, severe with psychosis (resolving, F 31.64); cannot rule out major depressive disorder with psychosis which his feels should be the diagnosis. I was not present when the patient was admitted to the hospital but they did not insist on changing from the bipolar diagnosis. 2. Anxiety disorder, NOS (F 41.9 3. Alcohol use disorder 4. Primary support and work issues Plan: [] The patient will continue the IOP program at [facility] as the structure, support, education, and group therapy will hopefully prevent worsening of the patient's symptoms which might require rehospitalization. He felt safe during the interview and if it anytime he does not feel safe he will let us know or go to the emergency room. The risk, options, possible complications and side effects of medications were again discussed with the patient and his and they understand and accepts these. Again I reiterated that the patient's should stay on his Abilify preferably for 6 months to avoid any recurrence of his psychosis or mood issues. He will continue to get the CAT scan that he has scheduled to rule out any other causes of his psychosis. He will continue to follow-up with his outpatient psychiatric and medical providers. If the patient continues to feel tired it is possible we might be able to decrease his Abilify to 10 mg p.o. nightly in a week or 2 with close observation.
--- NOTE | 2020-12-23 09:05 | BH.SGPN.GN ---
Behaviors/Verbalizations/Mental Status: [] Eye contact is good. Motor activity is appropriate. Appearance is casual. Speech is Appropriate. Mood is depressed. Affect is flat. Thoughts are linear and logical. No evidence of psychosis. Reviewed daily check in sheet and no reports of suicidal ideations or intent. Client Response/Progress/Benefit: [] Pt participated at times during group discussion. Attentive. Daily symptom tracker notes 4/5 for depression and 2/5 for anxiety. Mental health wins include accomplishing tasks around the house. Emotion for today is confused. He talked about his anxiety and stress related to searching for a job. Ruminating on worst case scenarios. Group provided feedback and challenged some of his cognitive distortions which was benefical. Progress noted. Will continue in IOP to prevent decompensation, increase healthy coping, and to improve functioning. Narrative Note: []
--- NOTE | 2020-12-23 11:12 | BH.SGPN.GN ---
Behaviors/Verbalizations/Mental Status: []Client alert and oriented, casually dressed and appropriately groomed. Eye contact fair. Motor activity appropriate. Speech within normal limits. Affect constricted, mood dysthymic. Thoughts linear, logical, no signs of hallucinations or delusions. Client Response/Progress/Benefit: []Client was an engaged participant AEB providing input at times during discussion and listened attentively to others. Connected with group topic of perspective and the impacts of one?s perspective on mental health. Client worked with the group to identify impact of a negative perspective which included: all or nothing thinking, increased negative self-talk, and hurts relationships. Client stated being around other negative people can impact own perspective. Client appeared to benefit from increasing understanding of mental health benefits of a positive perspective and potential consequences to progress when perspective is negative. Client is to continue IOP to stabilize moods, increase healthy coping and prevent decompensation. Narrative Note: []
--- NOTE | 2020-12-23 11:29 | BH.COMM ---
Communication Note - Communication with Client Communication Note: Met with patient briefly. Originally wanted to have an individual sessions however was asked to remain in group due to the topics being discussed. He reports that his psychiatrist at [facility] told him to take his Abilify all at night (15mg) and then restarted him on Remeron (15mg). He briefly went over ways to challenge negative perspective about currently being off work. Encouraged him to identify the opportunities that this provides rather than the negatives.
--- NOTE | 2020-12-27 14:00 | BH.MDN_ITS ---
Multi-Disciplinary Note - Note 45-min Individual Time Started:: 11:15 Date: 12/27/20 Purpose of session/treatment goals addressed:: Met with patient to review current symptoms and progress in IOP. Addressed treatment plan goals 1 and 2. Eye Contact:: Good Motor Activity:: Appropriate Appearance:: Casual Speech:: Appropriate Mood:: Depressed Affect:: Flat Thoughts:: Linear, Logical, No evidence of hallucinations/delusions noted Staff Interventions:: psychoeducation on: - mistaken beliefs. Client Response:: Pt reports ruminating thoughts and guilt related to previous employers. He talked at length regarding his role in the events that lead to him being let go from [employer] and resigning from his most recent employer on 11/29/20. Ruminating on things he could have done differently, however primarily focused on how others view or perceive him. Wants to make amends with previous co- workers and clients so he can disclose his motivations and perspectives. His guilt and depression come from the belief that others view him in a negative light. Pt reports being a people-pleaser and having others possibly view him negatively is incongruent with his view of himself. He continues to utilize skills however struggles with internal reframing. Risks/Concerns:: No risks or concerns noted. Progress Toward Goals/Plan:: Appears that his psychosis has resolved. Reports some mild delusions regarding previous employers talking negative about him however this is more guilt based due to his actions than irrational. Consistent and engaged in IOP. Learning skills and practicing them outside of group. Improved functioning. Insight on how people pleasing behaviors could negatively impact him. Responded well to education on Mistaken Core Beliefs and was given a handout to complete. Plan is to work on identifying and challenging mistaken beliefs. Will continue in IOP to maintain safety, prevent decompensation, and increase healthy coping. Time Stopped:: 12:00
--- NOTE | 2020-12-29 09:05 | BH.SGPN.GN ---
Behaviors/Verbalizations/Mental Status: Eye contact is good. Motor activity is appropriate. Appearance is casual. Speech is appropriate. Mood is anxious. Affect is congruent. Thoughts are linear and logical. No evidence of psychosis. Reviewed daily check in sheet with no reports of suicidal ideations, plan, or intent. Client Response/Progress/Benefit: Client was attentive and engaged during the group session, reporting his emotion of the day as ?anxious?. Client discussed his current stressor of job hunting and being worried about finding a job to take care of his family. Reports taking the first step by setting up a meeting with his former boss to discuss jobs. Appeared to benefit from supportive group discussion normalizing his feelings related to job hunting. Client recognized utilizing opposite action to come to group this date. Client indicates that his mood and functioning has been generally the same per daily symptom tracker. Will continue IOP treatment to improve mood stability and anxiety management as client continues the job search process. Narrative Note: []
--- NOTE | 2020-12-29 10:15 | BH.SGPN.GN ---
Behaviors/Verbalizations/Mental Status: []Client alert and oriented, casually dressed and groomed. Eye contact good. Motor activity appropriate. Speech within normal limits. Affect constricted, mood dysthymic. Thoughts linear, logical, no signs of hallucinations or delusions. Client Response/Progress/Benefit: []Pt was attentive during psychoeducation and taking notes, but did not contribute to discussion. Participated in short activity about automatic thoughts and shared that mood and past experiences can impact automatic thoughts. Group was primarily educational; therapist introduced and gave examples of the 10 cognitive distortions. Benefited from education and increased awareness of cognitive distortions and role that they play in negative thoughts and emotions. Pt did not share which distortions he connected with, but pt was nodding at examples provided by peers. Will continue IOP tx to prevent decompensation, increase healthy coping skills, and improve functioning. Narrative Note: []
--- NOTE | 2020-12-30 09:00 | BH.SGPN.GN ---
Behaviors/Verbalizations/Mental Status: []Client alert and oriented, casually dressed and groomed. Eye contact good. Motor activity appropriate. Speech within normal limits. Affect constricted, mood euthymic. Thoughts linear, logical, no signs of hallucinations or delusions. Reviewed client?s symptom tracker, no risk for suicidal ideation, plan, or intent as of 12/30/20 Client Response/Progress/Benefit: []Client responded well to session, connecting with peers. Client reports feeling anxious and hopeful this morning. Client stated he is feeling this way because he has finished his resume and his goal is to start applying for jobs next week. Client stated he proud of himself because in the past he has coped with stress using alcohol and he has been able to avoid using alcohol. Client has also been spending more time with his family and he is excited to take his kids to the fair today. Appeared to benefit from reflecting on growth and client's ability to maintain sobriety. Will continue IOP tx to promote mood stability, further increase the use of healthy coping skills, and help client transition back to work. Narrative Note: []
--- NOTE | 2020-12-30 10:10 | BH.SGPN.GN ---
Behaviors/Verbalizations/Mental Status: []Client alert and oriented, neatly dressed and groomed. Eye contact good. Motor activity appropriate. Speech within normal limits. Affect congruent, mood euthymic. Thoughts linear, logical, no signs of hallucinations or delusions Client Response/Progress/Benefit: []Client responded well to session, attentive and participating in activity. Client was quiet during discussion, but taking notes. The group discussed the benefits of fear such as learning about self and gaining confidence. Group shared that the fear of failure can lead to avoidance, worsening depression and anxiety, and missed opportunities. Client did well during the activity and was nodding frequently during group discussion. Client appeared to benefit from gaining awareness of the impact fear of failure can have on one?s mental health and wellbeing. Client self-reported on daily symptom tracker that his functioning has been overall improved which is progress. Will continue IOP to promote mood stability, increase self-confidence, and provide support while client seeks employment. Narrative Note: []
--- NOTE | 2021-01-03 09:05 | BH.SGPN.GN ---
Behaviors/Verbalizations/Mental Status: [] Eye contact is good. Motor activity is appropriate. Appearance is casual. Speech is Appropriate. Mood is anxious. Affect is congruent. Thoughts are linear and logical. No evidence of psychosis. Reviewed daily check in sheet and no reports of suicidal ideations or intent. Client Response/Progress/Benefit: [] Pt participated when prompted. Attentive. Emotion for today is anxious. Daily symptom tracker notes 3/5 for depression and 2/5 for anxiety. Continues to report anxiety related to his future and obtaining a job. COntinues to research and analyze and has not taken action. Mental health wins over the weekend included spending time with support and effectively managing stress and emotions. Progress noted per pt report. Beneifted from group support, encouragement, and feedback. Will continue in IOP to prevent decompensation and improve functioning to return to work. Narrative Note: []
--- NOTE | 2021-01-03 10:15 | BH.SGPN.GN ---
Behaviors/Verbalizations/Mental Status: []Client alert and oriented, casually dressed and groomed. Eye contact fair. Motor activity appropriate. Speech within normal limits. Affect constricted, mood dysthymic. Thoughts linear, logical, no signs of hallucinations or delusions Client Response/Progress/Benefit: []Pt was a mostly passive participant AEB pt not providing input during discussions. Attentive during psychoeducation and taking notes. Appeared to connect with topic of personal pitfalls and how they can impede mental health treatment progress. Pt and peers also discussed reasons why overcoming pitfalls is so challenging. During experiential activity pt along with peers identified several pitfalls from the activity that are also associated with mental health. Pt shared his personal pitfalls include: using unhealthy coping skills, mental filter, not reaching out to supports. Benefited from group by increasing awareness of pitfalls which can impact mental health. Pt will continue in IOP tx to stabilize moods, increase healthy coping and prevent decompensation. Narrative Note: []
--- NOTE | 2021-01-03 11:15 | BH.SGPN.GN ---
Behaviors/Verbalizations/Mental Status: []Client alert and oriented, casually dressed and groomed. Eye contact good. Motor activity appropriate. Speech within normal limits. Affect congruent, mood euthymic. Thoughts linear, logical, no signs of hallucinations or delusions. Client Response/Progress/Benefit: []Client receptive of session, engaged throughout AEB client actively listening and contributing to discussion, as well as taking notes. Client completed worksheet identifying personal pitfalls impacting mental health progress. Client identified the following pitfalls: using unhealthy coping skills, using mental filter, and not reaching out to supports. Group learned different coping skills to help manage pitfalls. Client selected not reaching out to supports as the pitfall he wants to overcome. Client plans to work on this by challenging himself to reach out to a family member or friend once a week. Benefited from identifying personal pitfalls and strategies to overcome these pitfalls. Will continue IOP tx to improve mood stability, increase application of healthy coping skills, and improve work-related functioning. Narrative Note: []
--- NOTE | 2021-01-05 10:15 | BH.SGPN.GN ---
Behaviors/Verbalizations/Mental Status: [] Eye contact is good. Motor activity is appropriate. Appearance is casual. Speech is Appropriate. Mood is depressed. Affect is flat. Thoughts are linear and logical. No evidence of psychosis. Client Response/Progress/Benefit: [] Pt was an active participant in group discussion and activity. Attentive during psychoeducation on fixed mindset and fixed thinking. Participated with group in experiential activity which initially seemed impossible however worked with peers to come up alternative solutions while practicing the skills at looking at obstacle with growth mindset. Completed worksheet in which pt identified common fixed thoughts she has which included; I'm not worth the time, Fear of failure, I expect perfection. Benefited from increased awareness of fixed thinking. Will continue in IOP to prevent decompensation, increase healthy coping, and stabilize mood. Narrative Note: []
--- NOTE | 2021-01-05 11:10 | BH.SGPN.GN ---
Behaviors/Verbalizations/Mental Status: []Client alert and oriented, casually dressed and groomed. Eye contact good. Motor activity appropriate. Speech within normal limits. Affect constricted. mood anxious, dysthymic. Thoughts linear, logical, no signs of hallucinations or delusions. Client Response/Progress/Benefit: []Client engaged during activity and discussion AEB remaining attentive throughout psychoeducation, providing some input, and taking notes throughout. Client did well to remain attentive and engaged as group worked on identifying characteristics and benefits of adopting a growth mindset. Listened and appearing to connect with discussion as fellow participants worked on reframing the example fixed thoughts into growth mindset thoughts. Client worked in small group to apply skills learned to reframe own personal fixed thoughts. Reframed personal fixed thought of ?My expectation is perfection? with growth mindset thought of ?I realize I can?t expect to be perfect at everything. Practice makes almost perfect?. Noted that this would aid in reducing stress and pressure he places on himself. Benefitted from discussing benefits of growth mindset and brainstorming strategies for prompting growth-mindset. Client continues to struggle with distorted thought patterns, irritability, and unrealistic expectations of self. Recommended to continue in IOP tx to promote active thought challenging, improve mood stability, and promote continued communication with supports. Narrative Note: []
--- NOTE | 2021-01-05 11:36 | BH.MDN ---
Multi-Disciplinary Note - Note 45-min Individual Time Started:: 09:10 Date: 01/05/21 Purpose of session/treatment goals addressed:: Reviewed current symptoms and progress in IOP. Addressed treatment plan goals 1 and 2. Reviewed mistaken beliefs jose antonioaire. Eye Contact:: Good Motor Activity:: Appropriate Appearance:: Casual Speech:: Appropriate Mood:: Anxious, Depressed Affect:: Congruent Thoughts:: Linear, Logical, No evidence of hallucinations/delusions noted Staff Interventions:: thought challenging, psychoeducation on: - mistake beliefs, CBT techniques Client Response:: Pt briefly discussed thoughts regarding medications which he believes are making him more lethargic. His outpatient psychiatrist told him to add Remeron to take at night with his Abilify and Trazadone to help him sleep. This has worked however lethargic in the AM which impacts motivation and energy leading to depression. Pt will meet with [facility] psych this afternoon. Remains anxious about work and his future. He has been researching however has not taken any action regarding applying. According to mistaken beliefs questionnaire pt scored high on belief that he has to be perfect in some or many areas of his life. Makes excessive demands on himself and there is no room for mistakes. He agrees with this. Able to identify how this impacts his well-being and had insight on how this impacts his relationships and jobs. Admits that ruminations about past mistakes and over-analyzing everything to make the right decisions can be debilitating and leads to his anxiety and depression. Risks/Concerns:: no risks or concerns noted. Progress Toward Goals/Plan:: Progress noted per pt report. Consistent and engaged in treatment. Reports that IOP is helping. Completes assignments. Increased insight and awareness however continues to struggle with implementing skills learned in group when anxious, depressed, or stressed. Difficulty managing negative automatic thoughts. Encouraged him to write these down and bring them in to work together to challenge. Will continue in IOP to prevent decompensation, increase healthy coping, and improve functioning. Pt has denied any psychosis or disorganized thinking since starting IOP which is progress. Time Stopped:: 10:00
--- NOTE | 2021-01-05 12:31 | PCM.BH.PN ---
Progress Note Progress Note: History of Present Illness/Interim History: [] The patient is a 50-year-old male who is seen in follow-up at the [facility] behavioral health IOP program. I last saw the patient 2 weeks ago. The patient states that one of his outpatient providers restarted his Remeron at 15 mg p.o. nightly about on about December 23, 2020. He thinks this was started because the patient continued to have some trouble sleeping. The patient states that he has felt very lethargic, irritable and tired since starting the Remeron. He did not take the Remeron last night and slept okay but not as well as he would like to sleep and not as well as he does with the Remeron and trazodone. Admit patient feels the program is helping him and he is learning valuable skills. His marriage is going well also. His mood is still depressed and tired somewhat. He last used alcohol 10 days ago and had only 2 mixed drinks at home. This is the only alcohol he has used in the past 2 weeks. The patient denies any passive thoughts of , suicidal ideation, homicidal ideation, hallucinations or delusions. Current Psychiatric Medications: [] Abilify 15 mg p.o. nightly (5 weeks on this); trazodone 50 mg p.o. nightly; Remeron 15 mg p.o. nightly (started on 12/23/2020 by outpatient psych provider) Mental Status Examination: [] The patient is a 50-year-old male who is seen wearing a mask due to the pandemic and is casually dressed and groomed with good hygiene. He is cooperative during the interview and eye contact is good. He has no psychomotor agitation or retardation. Speech is normal rate and rhythm and fluent with no pressure. Mood is depressed. Affect is constricted. Thought process is organized and goal-directed. Thought content: There is no evidence of thoughts of , suicidal ideation, plan for suicide, homicidal ideation, hallucinations or delusions. Reality testing is intact. Judgment is intact. Insight is good. Impulsivity is mild to moderate. Diagnoses: [] 1. Bipolar 1 disorder, 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, severe with psychosis (resolving, F 31.64) 2. Anxiety disorder, NOS (F 41.9) 3. Alcohol use disorder 4. Primary support and work issues Plan: [] The patient will continue the IOP program at [facility] as the structure, support, education and group therapy will hopefully prevent worsening of the patient's symptoms. He felt safe during the interview and if it anytime he does not feel safe he will let us know or go to the emergency room. The risks, options, possible complications and side effects of medications were again discussed with the patient and he understands accepts these. The patient still plans to get the CAT scan to rule out other causes of his psychosis. He agrees to discontinue the Remeron as it is making him too tired and increasing his irritability. He agrees to continue his Abilify at the current dose. He also agrees to increase his trazodone to 100 mg p.o. nightly. I will see the patient in 1 to 2 weeks in follow-up.
--- NOTE | 2021-01-06 10:10 | BH.SGPN.GN ---
Behaviors/Verbalizations/Mental Status: [] Eye contact is good. Motor activity is appropriate. Appearance is casual. Speech is Appropriate. Mood is anxious. Affect is congruent. Thoughts are linear and logical. No evidence of psychosis. Client Response/Progress/Benefit: [] Pt was an active participant in group discussion and activity. Attentive during psychoeducation on the stages of change. Pt participated in interactive discussion on emotions associated with change (happy, ecstatic, lonely, shocked, surprised, lonely, etc). Pt along with peers identified barriers that may prevent one from making change which included; stuck in routine, habits, fear, others, and responsibilities. Group able to identify the benefits to changes such as personal growth, feeling more positive, increased confidence, healthier environment, improved relationships, and obtaining goals. Benefited from increased awareness of emotions related to change, the change process, and benefits/barriers to change. Will continue in IOP to prevent decompensation, increase healthy coping, and stabilize mood. Narrative Note: []
--- NOTE | 2021-01-06 11:13 | BH.SGPN.GN ---
Behaviors/Verbalizations/Mental Status: []Client alert and oriented, casually dressed and groomed. Eye contact good. Motor activity appropriate. Speech within normal limits. Affect congruent, mood anxious, euthymic. Thoughts linear, logical, no signs of hallucinations or delusions. Client Response/Progress/Benefit: []Client was an active participant AEB remaining attentive during discussion and taking notes throughout. Client participated during continued discussion and psychoeducation on the stages of change. Did well to process activity and work with group to relate the barriers and strategies used to overcome the barriers to managing change in own life. Receptive of psychoeducation on using a decisional balance sheet to address uncertainties associated with making changes. Client identified a change he is currently contemplating as ?exercise?. Shared potential benefits of this change include: more energy, feeling physically and mentally ?better?, and more time for his family as a result of having more energy. Discussed some potential costs preventing him from making this change as: potentially injuring himself, it takes time, feeling hopeless, too tired to get started. Client appeared to benefit from reflecting on the benefits of changing vs. costs of not changing, as well as barriers to change and resources for addressing those barriers. Noted a resource for making change as: using his and friends for motivation. Pt recommended continued IOP tx to continue to improve thought challenging and reduce ruminating thoughts which cause anxiety, as well as provide support as pt transitions back to work. Narrative Note: []
--- NOTE | 2021-01-07 09:00 | BH.SGPN.GN ---
Behaviors/Verbalizations/Mental Status: []Pt eye contact good, casually dressed, motor activity appropriate, speech normal rate and tone, mood euthymic, congruent affect, thoughts linear and intact, no evidence of delusions or hallucinations. Reviewed client?s symptom tracker, no signs of suicidal ideation, plan, or intent as of today. Client Response/Progress/Benefit: []Pt responded well to session AEB by listening to others and sharing thoughts and feelings. Pt reported feling hopeful today because has made some progress with potential job opportunities. Pt stated additional mental health positive as completing housework to give his mind a break. Pt reported he has been using his healthy coping skills more frequently and not sleeping throughout the day like he had been. Pt to continue IOP to maintain gains, continue use of healthy coping and prevent decompensation. Narrative Note: []
--- NOTE | 2021-01-10 09:05 | BH.SGPN.GN ---
Behaviors/Verbalizations/Mental Status: [] Eye contact is good. Motor activity is appropriate. Appearance is neat. Speech is Appropriate. Mood is anxious. Affect is congruent. Thoughts are linear and logical. No evidence of psychosis. Reviewed daily check in sheet and no reports of suicidal ideations or intent. Client Response/Progress/Benefit: [] Pt participated at times during group discussion. Attentive. Provided appropriate feedback. Emotion for today is hopeful. Daily symptom tracker notes 2/5 for depression and 1/5 for anxiety/irritability. Shared continued anxiety regarding job search. Rather than ruminating he has begun to take action as he applied for 2 positions. Reports that he is managing his emotions well with no significant distress. I got a lot of things accomplished this weekend. Reports getting along well with support and being able to accept current position and try to see benefits of time off work with kids. Progress noted per pt report. Benefited from group support, encouragement, and feedback. Will continue in IOP to prevent decompensation and increase healthy coping skills. Narrative Note: []
--- NOTE | 2021-01-10 10:15 | BH.SGPN.GN ---
Behaviors/Verbalizations/Mental Status: []Client alert and oriented, casually dressed. Eye contact fair. Motor activity appropriate. Speech within normal limits. Affect constricted, mood anxious. Thoughts linear, logical, no signs of hallucinations or delusions. Client Response/Progress/Benefit: []Client mostly passive participant AEB client providing limited contributions during group discussion. Client did appear to listen attentively to others and took notes throughout session. Attentive to group discussion about benefits to resilience which included: helps reach goals, improve mood, increase confidence, able to bounce back for future stressors, and decrease anxiety. Group was primarily education based, with client participating in small group discussion regarding traits that promote resilience. Client attentive to large group discussion. Client appeared to benefit from psychoeducation. Will continue IOP treatment to challenge negative thoughts, increase healthy coping and prevent decompensation.
--- NOTE | 2021-01-10 15:21 | BH.MDN_ITS ---
Multi-Disciplinary Note - Note 45-min Individual Time Started:: 11:30 Date: 01/10/21 Purpose of session/treatment goals addressed:: Reviewed progress in IOP and current symptoms. Reviewed mistaken beliefs homework and outcome measurement. Eye Contact:: Good Motor Activity:: Appropriate Appearance:: Casual Speech:: Appropriate Mood:: Anxious Affect:: Congruent Thoughts:: Linear, Logical, No evidence of hallucinations/delusions noted Staff Interventions:: psychoeducation on: - mistake beliefs, affirmations, CBT techniques, discharge planning, reviewed DSM-5 Client Response:: Pt states that his primary stressor is finding a job. We reviewed DSM outcome scales which show a 75% reduction in overall symptoms, a 33% reduction on the depression scales, and a 57% reduction on the anxiety scales. Pt self-reports being less depression and anxious as well as functioning more effectively. He completed his homework on mistaken beliefs which we discussed in more detail. Able to challenge mistaken beliefs as well as cognitive distortions. Risks/Concerns:: no risks or concerns noted. Progress Toward Goals/Plan:: We discussed progress in IOP and pt reports being stable with majority of stress/anxiety related to getting a job. He applied to a couple positions and is optimistic. Outcome measurements indicate significant improvement. Pt has attended the program consistently and is engaged. Struggles with consistent use of skills outside of program however reports increased awareness and insight which has changes his perspectives and improved mood. The plan is for pt to discharge from [facility] this week. 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 He has not heard [facility] from [facility] regarding [facility]. He was given referrals in the area and encouraged to make an appointment this afternoon. Time Stopped:: 12:10
--- NOTE | 2021-01-12 09:05 | BH.SGPN.GN ---
Behaviors/Verbalizations/Mental Status: Eye contact is good. Motor activity is appropriate. Appearance is casual. Speech is appropriate. Mood is stressed. Affect is congruent. Thoughts are linear and logical. No evidence of psychosis. Reviewed daily check in sheet with no reports of suicidal ideations, plan, or intent. Client Response/Progress/Benefit: Client was engaged throughout group session. Client originally reported his emotion of the day as disappointed, but reframed feelings and changed to determined.Did well to identify personal wins despite frustrations. Identified frustration as not meeting his goal of sending in his resume yesterday. Appeared to benefit working with group and clinician to challenge disappointment and improve use of self compassion. Noted wins as being able to take care of his sick child, and taking time to recognize which positions are not going to be beneficial for him and his mental health. Continues to struggle with unrealistic expectations which may impede continued treatment progress. Will continue IOP treatment to decrease negative self-talk and prevent decompensation. Narrative Note: []
--- NOTE | 2021-01-12 10:15 | BH.SGPN.GN ---
Behaviors/Verbalizations/Mental Status: [] Eye contact is good. Motor activity is appropriate. Appearance is casual. Speech is Appropriate. Mood is anxious. Affect is congruent. Thoughts are linear and logical. No evidence of psychosis. Client Response/Progress/Benefit: [] Pt was an active participant in group discussion and activity. Attentive during psychoeducation on what it means to take action. Pt identified symptoms that he wants to take gain control over which included fear of the unknown, avoidance, and self-doubt. Reports that if he was able to gain control over these than he would improved functioning. Increased insight into what could be holding patient back from mental wellness and the importance of taking action on symptoms and obstacles rather than avoiding or ignoring. Will continue in IOP to maintain gains, prevent decompensation, and maintain stable mood. Narrative Note: []
--- NOTE | 2021-01-12 11:10 | BH.SGPN.GN ---
Behaviors/Verbalizations/Mental Status: []Client alert and oriented, neatly dressed and groomed. Eye contact good. Motor activity appropriate. Speech within normal limits. Affect constricted, mood anxious. Thoughts linear, logical, no signs of hallucinations or delusions. Client Response/Progress/Benefit: []Client responded well to session, taking notes and participating in worksheet discussion. Client set a goal to gain control over his fear of the unknown. Client plans to work on this by challenging at least one negative thought a day and reach out to his support system. Client reports he will need to also practice self-compassion and list benefits of challenging his thoughts to support his goal. Progress noted as client has gained many healthy coping skills while in IOP. Appeared to benefit from identifying a small goal to benefit mental health. Will continue IOP tx for one more day to reinforce healthy coping skills and establish aftercare. Narrative Note: []
--- NOTE | 2021-01-12 13:08 | BH.TPR ---
Treatment Plan Review Date of Admission:: 12/14/20 Date of Treatment Plan Review:: 01/12/21 Admitting Diagnoses:: Bipolar D/O, recent mixed, severe w/ psychosis, resolving. Anxiety Disorder, NOS Current Diagnoses:: Bipolar D/O, recent mixed, severe w/ psychosis, resolving. Anxiety Disorder, NOS Patient's Response to Treatment:: DSM outcome scales show a 75% reduction in overall symptoms, a 33% reduction on the depression scales, and a 57% reduction on the anxiety scales. Pt self-reports being less depression and anxious as well as functioning more effectively. Consistent and engaged in treatment. Status of Current Problems and Symptoms: Continues to struggle with anxiety related to searching for a job and being unemployed. No evidence of psychosis, delusions, disorganized thoughts, or suicidal ideations since starting IOP. Overall mood has been stable. Improved functioning at home. Decreased conflict with . Problem #1 Problem Name:: Mood Instability Status of Goals:: Completed objectives 1 and 2. Able to identify 3 healthy coping skills to manage emotions. Pt utilizing skills learned in IOP consistently. Increased awareness of Bipolar disorder. Pt and met with psychiatrist to discuss dx and medications to help with mood stability. Pt was given handouts and talked with therapist regarding criteria and symptoms associated with Bipolar. Team Recommendations:: Plan is to be discharged tomorrow with continued counseling and psychiatry. Problem #2 Problem Name:: Anxiety Status of Goals:: Able to identify cognitive distortions (catastrophizing, should thinking) and primary core mistaken belief (I have to perfect) which exacerbate anxiety. Develop external and internal skills to manage anxiety Team Recommendations:: Plan is to be discharged tomorrow with continued counseling and psychiatry.
--- NOTE | 2021-01-13 09:00 | BH.SGPN.GN ---
Behaviors/Verbalizations/Mental Status: [] Eye contact is good. Motor activity is appropriate. Appearance is neat. Speech is Appropriate. Mood is anxious. Affect is congruent. Thoughts are linear and logical. No evidence of psychosis. Reviewed daily check in sheet and no reports of suicidal ideations or intent. Client Response/Progress/Benefit: [] Pt participated when prompted. Attentive. Emotion for today is anxious but determined. Daily symptom tracker notes 2/5 for anxiety and depression. Shared with the group that today is his last day in [facility]. Shared that progress that he has made which includes improved mood stability and skills to better managing stressors. States that leaving is bittersweet however he feels more purposeful. Shared that the topic that resonated most with him was challenging thoughts and utilizing affirmations. Progress noted per pt report. Benefited from group support and encouragement. Will be discharge from [facility] today. Narrative Note: []
--- NOTE | 2021-01-13 10:12 | BH.SGPN.GN ---
Behaviors/Verbalizations/Mental Status: []Eye contact is good. Motor activity is appropriate. Appearance is casual. Speech is Appropriate. Mood is euthymic. Affect is congruent. Thoughts are linear and logical. No evidence of psychosis. Client Response/Progress/Benefit: []Pt was an active participant in group discussions. Attentive and provided insights during psychoeducation on benefits and disadvantages of anxiety and review of different types of Anxiety Disorders (Social Anxiety, BAY, OCD, PTSD, and Separation Anxiety). Completed worksheet on identifying own physical symptoms or signs of anxiety which pt reported numerous however identified most frequent as: nervous stomach, restless, and fidgety. Benefited from increased awareness of physiological signs of anxiety as well as differences between 'normal' anxiety and anxiety disorder. Pt to discharge from [facility] today. Narrative Note: []
--- NOTE | 2021-01-13 11:30 | BH.AFTERPLAN ---
Aftercare Plan - Medications Home Medications: Home Medications aripiprazole [Abilify] 15 mg PO QHS 12/15/20 atorvastatin 20 mg PO DAILY 12/15/20 trazodone 100 mg PO QHS 12/15/20
--- NOTE | 2021-01-13 11:59 | BH.DS ---
Discharge Summary - Demographics Date of Admission:: 12/14/20 Discharge Date: 01/13/21 Presenting Problems at Admission:: Pt is a 50 year old male with a recent diagnosis of Bipolar. Recent admission to [facility] from 11/30/20-12/04/20 due to delusions, paranoia, racing thoughts, intrusive thoughts, restlessness, and suicidal ideation. Pt was unable to function due to mental health for several days prior to admission. Pt presented to pre-admission screening for PHP here at [facility] on 11/30/20 with fleeting suicidal thoughts and delusions. Per excessive guilt with no basis in reality. Pt was hyper-focued on past mistakes and his need for atonement, being a failure, and being a bad person. Pt reported poor sleep, poor appetite, erratic energy, restlessness throughout the day, and inability to make any decisions for himself. At that time pt reported suicidal thoughts with methods which were fleeting. was watching pt 06/11 and removed guns form the home. Frequent panic attacks. Pt reports improved functioning since discharge from psychiatric unit. He presents alert and oriented. Denies HI or psychosis. Does Discharge Diagnoses:: Bipolar D/O, recent mixed, severe w/ psychosis, resolving. Anxiety Disorder, NOS Reason for Discharge:: Completed treatment plan goals. No longer meets criteria for [facility] level of care. - Treatment Progress During Treatment & Response: DSM outcome scales show a 75% reduction in overall symptoms, a 33% reduction on the depression scales, and a 57% reduction on the anxiety scales. Pt self-reports being less depression and anxious as well as functioning more effectively. He completed his homework on mistaken beliefs which we discussed in more detail. Able to challenge mistaken beliefs as well as cognitive distortions. Pt reports being stable with majority of stress/anxiety related to getting a job. He applied to a couple positions and is optimistic. Outcome measurements indicate significant improvement. Pt has attended the program consistently and is engaged. Struggles with consistent use of skills outside of program however reports increased awareness and insight which has changes his perspectives and improved mood. Issues Still to be Addressed:: Anxiety, Medication Mgmt, Guilt, depression, stress management. Discharge Recommendations/Instructions:: Encouraged to follow-up with counseling and psychiatry at discharge. Pt has appointment with Simeon basket grader at [facility] on 01/28/21. [facility] and is awaiting to hear back regarding getting assigned a counseling. Encouraged him to follow up on this. Discharge Handout: Complete Discharge Handout with client on aftercare options and continuity of care.
== END 2021-01-13 13:02 | disposition home or self-care (01) ==
LOC: BHIOP 08:31
PROVIDERS: PCP Nurse Practitioner; Visit Provider Psychiatry & Neurology Psychiatry
DX: F31.64 Bipolar disorder, current episode mixed, severe, with psychotic features (principal); F41.9 Anxiety disorder, unspecified
CPT/HCPCS: S9480; 90834; 90837; 90853

== ENCOUNTER → 2020-12-17 14:54 | Outpatient (CLI) | payer OTHER, SELFPAY ==
--- NOTE | 2020-12-17 15:01 | CT_ITS ---
INDICATION: DICKEY EXAMINATION: CT BRAIN WITH AND WITHOUT CONTRAST - CT Head or Brain WO/W Contrast Injection TECHNIQUE: Multiple axial images were obtained of the brain with and without IV contrast. A radiation dose optimization technique was used for this scan. IV Contrast dosage and agent: 50 mL of [id number]. Radiation CTD: 44.99 Radiation DLP: 1596.72 COMPARISON: None. FINDINGS: BRAIN PARENCHYMA: The hanna-white matter differentiation is unremarkable, no evidence of prominent acute territorial infarct is seen. Subtle scattered areas of low attenuation visualized in the periventricular white matter that could represent could represent mild white matter changes. No evidence of parenchymal hemorrhages or contusions. No evidence of intra or extra-axial fluid collection is seen. No evidence of intracranial mass or mass effect, no evidence of midline shift is seen. The ventricles and sulci are unremarkable in size. No evidence of structural midline brain abnormality is seen. Low-lying cerebellar tonsils visualized but no evidence of tonsillar herniation is seen. No intracranial area of abnormal enhancement after contrast administration. Limited evaluation of the intracranial vessels demonstrates no prominent pathology. Limited evaluation of the intracranial venous sinuses is unremarkable, the superior sagittal sinus drains mainly into the right transverse sinus. The globes are unremarkable bilaterally, no evidence of stranding of the orbital fat planes. Mild circumferential mucosal thickening visualized in the ethmoid air cells otherwise unremarkable aeration of the paranasal sinuses and the mastoid air cells. The skull bones are otherwise unremarkable. CT/Brain/Head W/WO Contrast IMPRESSION: Unremarkable CT Brain with and without contrast. Electronically Signed: Abhinav Martinez MD at 16:23 EDT Tel , Service support ,
== END ==
PROVIDERS: PCP Nurse Practitioner; Visit Provider Nurse Practitioner
DX: R51.9 Headache, unspecified (principal)
CPT/HCPCS: 70470; Q9967

== ENCOUNTER 2021-04-09 11:23 | Emergency (ER) | payer OTHER, SELFPAY ==
[2021-04-09] VITALS (7 sets, daily range): BP systolic 134–144; BP diastolic 91–94; PULSE 83–84; RESP 11–18; TEMP 36.4–36.6; O2SAT 97; BMI 23.7
[2021-04-09 12:11] LABS: Absolute Lymphocyte Count 0.98 X10^3/uL (0.83-4.51); Basophil# 0.04 X10^3/uL; Basophil% 0.7 % (0-1); Eosinophil# 0.04 X10^3/uL; Eosinophils% 0.7 % (0-5); Hematocrit 45.5 % (40-54); Hemoglobin 15.3 g/dL (13.0-16.5); Lymphocyte # 0.98 X10^3/ul (0.83-4.51); Lymphocyte % 17.9 % (19-41); Mean Corp Hgb Conc 33.6 g/dL (32-36); Mean Corpuscular Hgb 30.1 pg (27.0-32.0); Mean Corpuscular Volume 89.6 fL (80-94); Mean Platelet Vol. 9.9 fl (6.2-12.0); Monocyte# 0.42 X10^3/uL; Monocyte% 7.7 % (0-10); NRBC Flagged by Analyzer 0 % (0-5); Neutrophil # 3.98 X10^3/uL (2.7-7.7); Neutrophil % 72.8 % (47-70); Platelet Count 253 K/mm3 (150-450); RBC Distribution Width CV 12.5 % (11.6-14.6); RBC Distribution Width SD 41.3 fl (35.1-43.9); Red Blood Count 5.08 M/mm3 (4.6-6.2); White Blood Count 5.5 K/mm3 (4.4-11.0)
[2021-04-09 12:24] LABS: Anion Gap 4 (5-15); BUN 15 mg/dL (7-18); BUN/Creat Ratio 14.2 RATIO (10-20); Calcium,Total 9.6 mg/dL (8.5-10.1); Chloride 106 mmol/L (98-107); Creatinine, Serum 1.06 mg/dL (0.70-1.30); EST Glomerular Filtration Rate 78 mL/min (>60); Est Glom Filt Rate - Afr Amer 95 mL/min (>60); Estimated Creatinine Clearance 90.49 ml/min; Glucose 111 mg/dL (74-106); Potassium 4.2 mmol/L (3.5-5.1); Sodium Level 138 mmol/L (136-145)
[2021-04-09 12:26] LABS: Amphetamine Urine VISTA NEGATIVE (<1000 ng/mL); Barbiturate Urine VISTA NEGATIVE (< 200 ng/mL); Benzodiazepine Urine VISTA NEGATIVE (< 200 ng/mL); Cocaine Urine VISTA NEGATIVE (< 300 ng/mL); Ecstacy Urine VISTA NEGATIVE (< 500 ng/mL); Methadone Urine VISTA NEGATIVE (< 300 ng/mL); PCP Urine VISTA NEGATIVE (< 25 ng/mL); THC Urine VISTA NEGATIVE (< 50 ng/mL); Vista UDS pH Range 6
[2021-04-09 12:41] LABS: Alcohol, Blood (Medical)-Serum < 3.0 mg/dL
--- NOTE | 2021-04-09 12:43 | EDS_ITS ---
HPI History of Present Illness Chief Complaint: Suicidal Narrative Narrative: Patient's called the police. Patient arrives pink slipped. Apparently he has some guilt, he is also had some unresolved anxiety and depression, the stress of the holidays have been too much and the family has been too much she thought he would get in his car and drive into something to end his life. He has no somatic complaints. PFSH PFS Medical History Anxiety disorder, unspecified Bipolar 1 disorder, mixed, severe Hyperlipidemia Home Medications atorvastatin 20 mg PO DAILY 12/15/20 [History Last Taken Unknown] trazodone 100 mg PO QHS 12/15/20 [History Last Taken Unknown] Allergy/AdvReac Type Severity Reaction Status Date / Time No Known Allergies Allergy Verified 04/09/21 11:27 Social History Smoking Status: Never smoker ROS ROS ED ROS Narrative Past medical history: Reviewed Medications: Reviewed Social history: Noncontributory Review of systems: All systems negative except as indicated General: No fever Eyes: No visual changes ENT: No upper airway congestion, normal voice Neck: No neck pain Cardiovascular: No chest pain Respiratory: No shortness of breath or cough Gastrointestinal: No abdominal pain, nausea vomiting or diarrhea Genitourinary: No dysuria Musculoskeletal: Denies myalgias no difficulty with ambulation Skin: No rash Neurological: No memory loss, confusion or any focal weakness Psych: As in HPI Hematologic: No easy bleeding or easy bruising EXAM Physical Exam Narrative Exam Narrative: Physical exam General: Well nourished, Well developed, No Acute Distress Head: Normocephalic, Atraumatic Eyes: Conjunctiva not pale ENT: Moist mucous membranes Neck: Supple, Nontender, No lymphadenopathy Cardiovascular: Regular rate, Regular rhythm Respiratory: No distress, CTA bilaterally Abdomen: Soft, Nontender, Nondistended Back: Nontender, Normal Inspection. Negative for: CVA tenderness Extremities: Nontender, No edema Skin: Normal color, No rash Neurological: Alert, Normal Strength, Normal Sensation Psychological: Flat affect he avoids eye contact he is forthcoming with most things except now he is tell me that he got in his car just to get away from people and not to hurt himself. Const Vital Signs: 04/09/21 11:24 Temperature 97.6 F L Temperature Source Temporal Pulse Rate 84 Respiratory Rate 15 Blood Pressure 144/94 H Blood Pressure Mean 110 Pulse Ox 97 Oxygen Delivery Method Room Air MDM MDM MDM Narrative Medical decision making narrative: Patient will be medically cleared. I do believe he is high risk and will need to be placed. Lab Data Labs: Laboratory Results - last 24 hr 04/09/21 04/09/21 04/09/21 11:57 11:57 11:57 WBC 5.5 RBC 5.08 Hgb 15.3 Hct 45.5 MCV 89.6 MCH 30.1 MCHC 33.6 RDW Std Deviation 41.3 RDW Coeff of Norman 12.5 Plt Count 253 MPV 9.9 Immature Gran % (Auto) 0.200 Neut % (Auto) 72.8 H Lymph % (Auto) 17.9 L [place] % (Auto) 7.7 Eos % (Auto) 0.7 Baso % (Auto) 0.7 Absolute Neuts (auto) 4.0 Absolute Lymphs (auto) 0.98 Nucleated RBC % 0 Sodium 138 Potassium 4.2 Chloride 106 Carbon Dioxide 28.0 Anion Gap 4 L BUN 15 Creatinine 1.06 Estim Creat Clear Calc 90.49 Est GFR (MDRD) Af Amer 95 Est GFR (MDRD) Non-Af 78 BUN/Creatinine Ratio 14.2 Glucose 111 H Calcium 9.6 Urine Opiates Screen Urine Methadone Screen Ur Barbiturates Screen Ur Phencyclidine Scrn Ur Amphetamines Screen U Methamphetamin-MDMA U Benzodiazepines Scrn Urine Cocaine Screen U Cannabinoids Screen Ur Drug Screen Comment Ethyl Alcohol < 3.0 04/09/21 12:05 WBC RBC Hgb Hct MCV MCH MCHC RDW Std Deviation RDW Coeff of Norman Plt Count MPV Immature Gran % (Auto) Neut % (Auto) Lymph % (Auto) [place] % (Auto) Eos % (Auto) Baso % (Auto) Absolute Neuts (auto) Absolute Lymphs (auto) Nucleated RBC % Sodium Potassium Chloride Carbon Dioxide Anion Gap BUN Creatinine Estim Creat Clear Calc Est GFR (MDRD) Af Amer Est GFR (MDRD) Non-Af BUN/Creatinine Ratio Glucose Calcium Urine Opiates Screen NEGATIVE Urine Methadone Screen NEGATIVE Ur Barbiturates Screen NEGATIVE Ur Phencyclidine Scrn NEGATIVE Ur Amphetamines Screen NEGATIVE U Methamphetamin-MDMA NEGATIVE U Benzodiazepines Scrn NEGATIVE Urine Cocaine Screen NEGATIVE U Cannabinoids Screen NEGATIVE Ur Drug Screen Comment Ethyl Alcohol Discharge Plan Triage Chief Complaint: Suicidal ED Provider: Oscar Figueredo Dx/Rx/DC Orders Clinical Impression: Depression with suicidal ideation Prescriptions: No Action atorvastatin 40 mg Tablet 20 mg PO DAILY RF: 0 trazodone 50 mg Tablet 100 mg PO QHS RF: 0 Primary Care Provider: Flory Zelaya NP Referrals: Flory Zelaya BASEBALL PLAYER, BASEBALL PLAYER-C [Primary Care Provider] - Disposition Disposition: Psychiatric Hospital or Unit
--- NOTE | 2021-04-09 13:54 | ED.RN ---
CRISIS NOTIFIED PT NEEDS EVALUATED
[2021-04-09 14:17] LABS: Mucous, Urine 0 SEEN /hpf (<or=2+); Red Blood Cells-Urine 0 SEEN /hpf (0-5); Squamous Epithelial Cells - UA 0 SEEN /hpf (0-5)
[2021-04-09 14:18] LABS: Color, Urine Yellow (Yellow); Glucose, Dipstick Normal (Normal); Ketone-Dipstick 5 mg/dl (Negative); Leukocyte Esterase-Dipstick Negative /ul (Negative); Nitrite-Dipstick Negative (Negative); Occult Blood-Urine Negative /ul (Negative); Protein-Dipstick Negative (Negative); Specific Gravity, Urine 1.015 (1.002-1.030); Urine Bilirubin Dipstick Negative (Negative); Urine Clarity Clear (Clear); Urine Urobilinogen Normal (Normal); Urine pH 6.5 (5.0 - 8.0)
--- NOTE | 2021-04-09 14:22 | ED.RN ---
SPOKE WITH STEFANIA AT CRISIS; HAS ASSESMENT THERE. ASKED THAT WE FAX CHART TO THEM. THIS SEC FAXED ALL INFORMATION
[2021-04-09 14:28] LABS: White Blood Cells 0-5 SEEN /hpf (0-5)
[2021-04-09 14:29] LABS: Bacteria RARE /hpf (None Seen)
--- NOTE | 2021-04-09 15:45 | EKG12_ITS ---
Test Reason : Blood Pressure : / mmHG Vent. Rate : 081 BPM Atrial Rate : 081 BPM P-R Int : 146 ms QRS Dur : 094 ms QT Int : 372 ms P-R-T Axes : 051 073 045 degrees QTc Int : 432 ms Normal sinus rhythm Normal ECG Confirmed by VAUGHN PETE, KRISTOPHER ([id number]), supervising editor news reel ALEX LIU ([id number]) on 04/12/2021 9:44:27 AM Referred By: PC Confirmed By:KRISTOPHER MENDES MD
--- NOTE | 2021-04-09 17:23 | ED.RN ---
PER ASHLY WITH CRISIS; PT IS ACCEPTED TO [facility]. FAMILY VOICED CONCERNS FOR FACILITY ACCEPTING PTS INSURANCE. PT WAS THERE BACK IN NOVEMBER AND ACCRUED AND OUTRAGEOUS BILL ASHLY WITH CRISIS NOTIFIED AND CONTACTED [facility], [facility] RESPONDED AND STATED THAT THE LAST TIME THE PT WAS THERE THEY HAD AN ERROR IN BILLING AND THAT IT WAS CORRECTED. ASHLY SAID THAT THE DATABASE DESIGNER WITH [facility] RAN HIS INSURANCE AND EVERYTHING LOOKED GOOD.
--- NOTE | 2021-04-09 17:27 | ED.RN ---
pt was updated on crisis working on placement and acceptance at [facility]. pt has spouse at bedside that was also updated. spouse raised concern that pt was at [facility] in November and insurance was a problem and wanted to make sure that that would not be an issue this time. This RN stated that she would page crisis and see if there was information that we could find out about this stay. ED administrative secretary was able to contact crisis, update them on the family and patient concerns and called back into ER after discussing case with [facility] and stated that everything checked out okay with the insurance this time around. this information was shared with spouse and patient and all questions answered. agreeable with transfer.
== END 2021-04-09 19:34 ==
PROVIDERS: Emergency Provider Emergency Medicine; PCP Nurse Practitioner
DX: F31.63 Bipolar disorder, current episode mixed, severe, without psychotic features (principal); F41.9 Anxiety disorder, unspecified; R45.851 Suicidal ideations; E78.5 Hyperlipidemia, unspecified; Z79.899 Other long term (current) drug therapy
CPT/HCPCS: 36415; 80048; 80307; 81001; 82077; 85025; 87426; 93005; 99285

== ENCOUNTER → 2022-01-19 | Outpatient (CLI) | payer OTHER, SELFPAY ==
[2022-01-19 09:35] LABS: Hematocrit 46.7 % (40-54); Hemoglobin 15.3 g/dL (13.0-16.5); Mean Corp Hgb Conc 32.8 g/dL (32-36); Mean Corpuscular Hgb 30.3 pg (27.0-32.0); Mean Corpuscular Volume 92.5 fL (80-94); Mean Platelet Vol. 10.1 fl (6.2-12.0); Platelet Count 203 K/mm3 (150-450); RBC Distribution Width CV 13.6 % (11.6-14.6); RBC Distribution Width SD 46.3 fl (35.1-43.9); Red Blood Count 5.05 M/mm3 (4.6-6.2); White Blood Count 5.3 K/mm3 (4.4-11.0)
[2022-01-19 10:03] LABS: Vitamin D,25 Hydroxy 22.3 ng/mL
[2022-01-19 10:10] LABS: AST(SGOT) 24 U/L (15-37); Alanine Aminotransfer ALT/SGPT 33 U/L (16-61); Albumin, Serum 3.9 g/dL (3.2-5.0); Alkaline Phosphatase 83 U/L (45-117); Anion Gap 3 (5-15); BUN 17 mg/dL (7-18); Calcium,Total 9.3 mg/dL (8.5-10.1); Chloride 106 mmol/L (98-107); Cholesterol 279 mg/dL (200); Creatinine, Serum 1.06 mg/dL (0.70-1.30); EST Glomerular Filtration Rate 78 mL/min (>60); Est Glom Filt Rate - Afr Amer 94 mL/min (>60); Globulin 3.8 g/dL (2.2-4.2); Glucose 94 mg/dL (74-106); High Density Lipoprotein 56 mg/dL; Potassium 4.6 mmol/L (3.5-5.1); Protein, Total 7.7 g/dL (6.4-8.2); Sodium Level 141 mmol/L (136-145); Thyroid Stim Hormone (TSH) 1.86 uIU/mL (0.358-3.74); Triglycerides 115 mg/dL; Very Low Density Lipoprotein 23 mg/dL (5-40)
[2022-01-19 12:22] LABS: Hemoglobin A1c 5.5 % (3.8-5.6)
== END | disposition home or self-care (01) ==
PROVIDERS: PCP Nurse Practitioner; Visit Provider Counselor Mental Health
DX: E55.9 Vitamin D deficiency, unspecified (principal); Z79.899 Other long term (current) drug therapy
CPT/HCPCS: 36415; 80053; 80061; 82306; 83036; 84443; 85027

== ENCOUNTER → 2022-09-27 | Outpatient (CLI) | payer OTHER, SELFPAY ==
[2022-09-27 10:17] LABS: Cholesterol 162 mg/dL (200); High Density Lipoprotein 60 mg/dL; PSA,Total - Annual Screen 0.42 ng/mL (0.00-4.00); Triglycerides 87 mg/dL; Very Low Density Lipoprotein 17 mg/dL (5-40)
== END | disposition home or self-care (01) ==
LOC: LAB 09:09
PROVIDERS: PCP Nurse Practitioner Family; Referring Provider Nurse Practitioner Family; Visit Provider Nurse Practitioner Family
DX: Z12.5 Encounter for screening for malignant neoplasm of prostate (principal); E78.00 Pure hypercholesterolemia, unspecified
CPT/HCPCS: 36415; 80061; 84153; G0103

== ENCOUNTER → 2024-06-25 | Outpatient (CLI) | payer OTHER, SELFPAY ==
--- NOTE | 2024-06-25 15:44 | VDLE_ITS ---
Reason For Study Reason For Study: Right leg swelling RIGHT LEFT GSV is normal. CFV is compressible, spontaneous, phasic, competent, CFV is compressible, spontaneous, phasic, competent and demonstrates normal augmentation. and demonstrates normal augmentation. FV is compressible, spontaneous, phasic, competent and demonstrates normal augmentation. POP V is compressible, spontaneous, phasic, competent and demonstrates normal augmentation. Acute deep vein thrombosis is noted in the T/P Trunk, PTV, PeroV and SoleusV. It is dilated and NONCOMPRESSIBLE. Procedure This is a venous duplex using B-mode, color flow and spectral Doppler. Exam performed in department. A preliminary report was called and/or faxed to [facility]. VL/Venous Duplex US, Unilateral Interpretation Summary Acute deep vein thrombosis noted in the right tibioperoneal trunk vein, posteri or tibial vein, peroneal vein, soleus vein Ordering Physician: Lynn Arndt Referring Physician: Lynn Arndt Performed By: Neeta Enriquez RVT
[2024-06-25 17:12] LABS: Absolute Lymphocyte Count 1.28 X10^3/uL (0.83-4.51); Absolute Neutrophil Count 3.8 X10^3/uL (2.0-7.7); Basophil# 0.05 X10^3/uL; Basophil% 0.9 % (0-1); Eosinophil# 0.17 X10^3/uL; Eosinophils% 2.9 % (0-5); Hematocrit 40.5 % (40-54); Lymphocyte # 1.28 X10^3/ul (0.83-4.51); Lymphocyte % 21.9 % (19-41); Mean Corp Hgb Conc 34.6 g/dL (32-36); Mean Corpuscular Hgb 31.4 pg (27.0-32.0); Mean Corpuscular Volume 90.8 fL (80-94); Mean Platelet Vol. 9.5 fl (6.2-12.0); Monocyte# 0.54 X10^3/uL; Monocyte% 9.2 % (0-10); NRBC Flagged by Analyzer 0 % (0-5); Neutrophil % 64.9 % (47-70); Platelet Count 212 K/mm3 (150-450); RBC Distribution Width CV 13.3 % (11.6-14.6); RBC Distribution Width SD 44.5 fl (35.1-43.9); Red Blood Count 4.46 M/mm3 (4.6-6.2); White Blood Count 5.9 K/mm3 (4.4-11.0)
[2024-06-25 17:26] LABS: International Normalized Ratio 0.9; Prothrombin Time (Protime)PT. 12.8 SECONDS (11.7-14.9)
[2024-06-25 17:27] LABS: Partial Thromboplast Time 23.3 Seconds (24.1-36.2)
[2024-06-25 18:13] LABS: ALB/GLOB Ratio 1.4 RATIO (0.9-2.4); AST(SGOT) 26 U/L (<=37); Alanine Aminotransfer ALT/SGPT 28 U/L (<=46); Albumin, Serum 4.3 g/dL (3.5-5.0); Alkaline Phosphatase 118 U/L (40-129); Anion Gap 12 (5-15); BUN 14 mg/dL (4-19); BUN/Creat Ratio 14.2 RATIO (10-20); Calcium,Total 9.3 mg/dL (7.6-11.0); Carbon Dioxide 22.7 mmol/L (21.0-32.0); Chloride 104 mmol/L (98-108); Cholesterol 272 mg/dL (<=200); EST Glomerular Filtration Rate 90 (>60); Glucose 85 mg/dL (70-99); High Density Lipoprotein 67 mg/dL; Low Density Lipoprotein Calc. 171 mg/dL; PSA,Total - Annual Screen 0.51 ng/mL (0.02-4.00); Potassium 4.2 mmol/L (3.3-5.1); Protein, Total 7.3 g/dL (5.9-8.4); Sodium Level 139 mmol/L (133-145); Total Bilirubin 0.49 mg/dL (0.00-1.30); Triglycerides 171 mg/dL; Very Low Density Lipoprotein 34 mg/dL (5-40); cholesterol:hdl ratio screen 4.07
== END | disposition home or self-care (01) ==
PROVIDERS: PCP Nurse Practitioner Family; Referring Provider Nurse Practitioner Family; Visit Provider Nurse Practitioner Family
DX: E78.00 Pure hypercholesterolemia, unspecified (principal); I82.409 Acute embolism and thrombosis of unspecified deep veins of unspecified lower extremity; R03.0 Elevated blood-pressure reading, without diagnosis of hypertension; E55.9 Vitamin D deficiency, unspecified; Z12.5 Encounter for screening for malignant neoplasm of prostate; M79.89 Other specified soft tissue disorders
CPT/HCPCS: 36415; 80053; 80061; 84153; 84443; 85025; 85610; 85730; 93971; G0103

== ENCOUNTER → 2024-08-13 | Outpatient (CLI) | payer OTHER, SELFPAY ==
--- NOTE | 2024-08-13 13:15 | CT_ITS ---
PROCEDURE: ABDOMEN/PELVIS WITH CONTRAST (procedure code [id number]), 08/13/2024 REASON FOR EXAM: ABD MASS TECHNIQUE: CT abdomen and pelvis was performed with IV contrast. Multiplanar reformats were generated. IV CONTRAST: Isovue-300 VOLUME: 98mL Oral contrast: Readi-CAT; dose information not provided. RADIATION DOSE SUMMARY: CTDlvol: 12.15+ 15.91+ 20.57 mGy DLP: 1345.99 mGycm One or more dose reduction techniques were used (e.g., Automated exposure control, adjustment of the mA and/or kV according to patient size, use of iterative reconstruction technique). COMPARISON: None FINDINGS: Lung bases: Minimal atelectasis/scarring.. Liver: Faint geographic hypoattenuation in the RIGHT lobe, favored either perfusional or reflective of geographic steatosis. Additional likely focal hepatic steatosis along the gallbladder fossa, normal variant. Spleen: Unremarkable. Gallbladder: Unremarkable. Pancreas: Unremarkable. Adrenals: Unremarkable. Kidneys: Unremarkable. Bowel: Apparent mild descending and rectosigmoid colonic wall thickening may be related to underdistention.. Reported appendectomy.. Single descending colonic diverticulum. Lymph nodes: Unremarkable. Vasculature: Unremarkable. Peritoneum: Unremarkable. Bladder: Bladder wall thickening versus underdistention.. Reproductive Organs: Prostate is top-normal in size. Body Wall: Tiny fat containing umbilical hernia.. Bones: Multilevel spondylosis.. CT/Abdomen/Pelvis WITH Contrast IMPRESSION: 1. No abdominal mass identified. Correlate with the location of the suspected mass. 2. Mild descending colonic and rectosigmoid wall thickening could be related to underdistention or perhaps proctocolitis. 3. Bladder wall thickening versus underdistention. Correlate for cystitis. 4. Additional description as above. Reading Location: [id number]
== END | disposition home or self-care (01) ==
LOC: CT 12:50
PROVIDERS: PCP Nurse Practitioner Family; Referring Provider Nurse Practitioner Family; Visit Provider Nurse Practitioner Family
DX: R19.00 Intra-abdominal and pelvic swelling, mass and lump, unspecified site (principal)
CPT/HCPCS: 74177; Q9967

== ENCOUNTER → 2024-09-24 | Outpatient (CLI) | payer OTHER, SELFPAY ==
--- NOTE | 2024-09-24 10:07 | VDLE_ITS ---
Reason For Study Reason For Study: Right leg DVT RIGHT LEFT GSV is normal. GSV is normal. CFV is compressible, spontaneous, phasic, competent CFV is compressible, spontaneous, phasic, competent, and demonstrates normal augmentation. and demonstrates normal augmentation. FV is compressible, spontaneous, phasic, competent FV is compressible, spontaneous, phasic, competent and demonstrates normal augmentation. and demonstrates normal augmentation. POP V is compressible, spontaneous, phasic, competent POP V is compressible, spontaneous, phasic, competent and demonstrates normal augmentation. and demonstrates normal augmentation. T/P Trunk is partially compressible minimal venous T/P Trunk is compressible. flow noted. PTV is compressible. Soleus V is compressible. LT PerV is compressible. PTV is compressible. RT PerV is compressible. Procedure This is a venous duplex using B-mode, color flow and spectral Doppler. Exam performed in department. Compared to 06/25/2024. VL/Venous Duplex US - Tung Extrem Interpretation Summary Chronic deep vein thrombosis noted in the right tibioperoneal trunk. Improved f rom previous study. Deep veins of the left lower extremity are patent and compressible segmentally. There is no evidence of left lower extremity deep vein thrombosis. The bilateral great saphenous veins appear ocx nt and compressible segmentally. Ordering Physician: Lynn Arndt Referring Physician: Lynn Arndt Performed By: Neeta Enriquez RVT
--- OUTSIDE RECORDS SUMMARY | 2024-09-24 19:59 | XMS RPT_ITS | CCD ---
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 De Jesus Unavailable [phone] Lynn Arndt CNP Attending Unavailable HairLynn rodriguez CNP Referring Unavailable HairLynn rodriguez CNP Consulting Unavailable Ludy Solomon MA Unavailable Unavailable Hair, Lynn Referring Unavailable Hair, Lynn Primary Care Unavailable Thiago Malhotra Attending Unavailable HairLynn Referring Unavailable Hair, Lynn Primary Care Unavailable HairMariaelenayn Attending Unavailable Hair, Lynn Primary Care Unavailable HairMariaelenayn Attending Unavailable Hair, Lynn Primary Care Unavailable Hair, Lynn Attending Unavailable Hair, Lynn Referring Unavailable Hair, Lynn Primary Care Unavailable Hair, Lynn Attending Unavailable HairMariaelenayn Referring Unavailable Medications Completed/Discontinued Medications Medication Drug Class(es) Dates Sig (Normalized) Sig (Original) albuterol 5 mg/ml inhalation solution (20 sources) beta2-Adrenergic Agonist Start: 09-10-2020 End: 10-05-2020 Albuterol Sulfate 2.5 MG/0.5ML Inhalation Nebulization Solution 1 (one) Milliliter q6-8hrs prn for 0 days Quantity: 14 {Milliliter} Refills: 0 Ordered: 05-Oct-2020 Dalton Lozano LPN Start : 10-Sep-2020 End : 05-Oct-2020 Inactive Start: 07-07-2020 ProAir HFA 108 (90 Base) MCG/ACT Inhalation Aerosol Solution 2 (two) Puff tid or qid for 0 days Quantity: 1 {Inhaler} Refills: 1 Ordered: 07-Jul-2020 Dalton Lozano LPN Start : 07-Jul-2020 Active Start: 07-07-2020 ProAir HFA 108 (90 Base) MCG/ACT Inhalation Aerosol Solution 2 (two) Puff tid or qid for 0 days Quantity: 1 {Inhaler} Refills: 1 Ordered: 07-Jul-2020 Nathalie MCKEON LaneyIhsan Zelaya CNP, Flory Champagne Start : 07-Jul-2020 Active ARIPiprazole 15 mg oral tablet (20 sources) Atypical Antipsychotic Start: 01-17-2021 End: 01-30-2022 take 1 tablet by mouth once daily at bedtime Abilify 15 MG Oral Tablet 1 (one) Tablet qhs for 0 days Quantity: 30 {Tablet} Refills: 0 Ordered: 30-Jan-2022 Clarisa Maharaj LPN Start : 17-Jan-2021 End : 30-Jan-2022 Inactive Comments: From [place] Start: 12-06-2020 End: 01-17-2021 take 1 tablet by mouth once daily in the evening Abilify 10 MG Oral Tablet 1 (one) Tablet qpm for 0 days Quantity: 30 {Tablet} Refills: 0 Ordered: 17-Jan-2021 Clarisa Maharaj LPN Start : 06-Dec-2020 End : 17-Jan-2021 Inactive Comments: per [place] Abilify 5 MG Ora l Tablet morning (5 MG) Inactive Comment on above: From [place] per [place] atorvastatin 20 mg oral tablet (20 sources) HMG-CoA Reductase Inhibitor Start: 02-14-2023 End: 12-12-2022 take 1 tablet by mouth at bedtime Lipitor 20 mg oral tablet 1 (one) Tablet at bedtime for 30 days Quantity: 30 {Tablet} Refills: 0 Ordered: 14-Feb-2023 Lynn Arndt CNP Start : 14-Feb-2023 End : 12-Dec-2022 Active Start: 01-17-2023 End: 12-12-2022 take 1 tablet by mouth at bedtime Lipitor 20 mg oral tablet 1 (one) Tablet at bedtime for 30 days Quantity: 30 {Tablet} Refills: 0 Ordered: 17-Jan-2023 Lynn Arndt CNP Start : 17-Jan-2023 End : 12-Dec-2022 Active Start: 01-17-2023 End: 12-12-2022 take 1 tablet by mouth at bedtime Lipitor 20 mg oral tablet 1 (one) Tablet at bedtime for 30 days Quantity: 30 {Tablet} Refills: 0 Ordered: 17-Jan-2023 Lynn Arndt CNP Start : 17-Jan-2023 End : 12-Dec-2022 Active Start: 01-17-2023 End: 12-12-2022 take 1 tablet by mouth at bedtime Lipitor 20 mg oral tablet 1 (one) Tablet at bedtime for 30 days Quantity: 30 {Tablet} Refills: 0 Ordered: 17-Jan-2023 Lynn Arndt CNP Start : 17-Jan-2023 End : 12-Dec-2022 Active Start: 12-19-2022 End: 12-12-2022 take 1 tablet by mouth at bedtime Lipitor 20 mg oral tablet 1 (one) Tablet at bedtime for 30 days Quantity: 30 {Tablet} Refills: 0 Ordered: 19-Dec-2022 Lynn Arndt CNP Start : 19-Dec-2022 End : 12-Dec-2022 Active Start: 11-12-2022 End: 11-10-2022 take 1 tablet by mouth at bedtime Lipitor 20 mg oral tablet 1 (one) Tablet at bedtime for 30 days Quantity: 30 {Tablet} Refills: 0 Ordered: 12-Nov-2022 Lynn Arndt CNP Start : 12-Nov-2022 End : 10-Nov-2022 Active Start: 10-11-2022 take 1 tablet by elver th at bedtime Lipitor 20 mg oral tablet 1 (one) Tablet at bedtime for 30 days Quantity: 30 {Tablet} Refills: 0 Ordered: 11-Oct-2022 Lynn Arndt CNP Start : 11-Oct-2022 Active Start: 06-05-2022 take 1 tablet by elver th at bedtime Lipitor 20 mg oral tablet 1 (one) Tablet at bedtime for 30 days Quantity: 30 {Tablet} Refills: 3 Ordered: 05-Jun-2022 Lynn Arndt CNP Start : 05-Jun-2022 Active Start: 01-30-2022 take 1 tablet by elver th at bedtime Lipitor 20 MG Oral Tablet 1 (one) Tablet at bedtime for 30 days Quantity: 30 {Tablet} Refills: 3 Ordered: 01-Feb-2022 Hair MIKELynn Start : 01-Feb-2022 Active Start: 12-06-2020 End: 01-30-2022 take 0.5 tablet by mouth once daily Lipitor 40 MG Oral Tablet 1/2 Tablet daily for 0 days Quantity: 30 {Tablet} Refills: 0 Ordered: 30-Jan-2022 Clarisa Maharaj LPN Start : 06-Dec-2020 End : 30-Jan-2022 Inactive Start: 07-07-2020 take 1 tablet by elver th once daily Lipitor 40 MG Oral Tablet 1 (one) Tablet daily for 0 days Quantity: 30 {Tablet} Refills: 0 Ordered: 07-Jul-2020 Nathalie MCKEON LaneyIhsan Zelaya CNP Flory Champagne Start : 07-Jul-2020 Active cholecalciferol 0.125 mg oral capsule (15 sources) Vitamin D Start: 11-02-2022 take 1 capsule by mouth once daily cholecalciferol (vitamin D3) 125 mcg (5,000 unit) oral capsule 1 (one) Capsule one daily for 30 days Quantity: 30 {Capsule} Refills: 6 Ordered: 02-Nov-2022 Hair MIKELynn Start : 02-Nov-2022 Active Start: 01-30-2022 take 1 capsule by mo [facility] once daily Vitamin D3 Maximum Strength 125 MCG (5000 UT) Oral Capsule 1 (one) Capsule one daily for 30 days Quantity: 30 {Capsule} Refills: 6 Ordered: 30-Jan-2022 Hair MIKELynn Start : 30-Jan-2022 Active citalopram 20 mg oral tablet (20 sources) Serotonin Reuptake Inhibitor Start: 07-07-2020 End: 12-06-2020 take 1 tablet by mouth once daily CeleXA 20 MG Oral Tablet 1 (one) Tablet daily for 0 days Quantity: 30 {Tablet} Refills: 0 Ordered: 06-Dec-2020 Yolanda Gant LPN Start : 07-Jul-2020 End : 06-Dec-2020 Inactive codeine phosphate 2 mg/ml / guaiFENesin 20 mg/ml oral solution (20 sources) Opioid Agonist Start: 09-10-2020 End: 10-05-2020 take 5-10 mL by mouth four times daily as needed Cheratussin AC 100-10 MG/5ML Oral Solution 5-10 Milliliter qid prn for 0 days Quantity: 280 {Milliliter} Refills: 0 Ordered: 05-Oct-2020 Dalton Lozano LPN Start : 10-Sep-2020 End : 05-Oct-2020 Inactive doxycycline hyclate 100 mg oral tablet (20 sources) Tetracycline-class Drug Start: 09-10-2020 End: 09-20-2020 take 1 tablet by mouth twice daily Doxycycline Hyclate 100 MG Oral Tablet 1 (one) Tablet bid for 10 days Quantity: 20 {Tablet} Refills: 0 Ordered: 10-Sep-2020 Vickywoodymirta Flory Start : 10-Sep-2020 End : 20-Sep-2020 Inactive fexofenadine hydrochloride 60 mg oral tablet (20 sources) Histamine-1 Receptor Antagonist Start: 07-07-2020 End: 01-30-2022 take 1 tablet by mouth twice daily Kareen Allergy 60 MG Oral Tablet 1 (one) Tablet bid for 0 days Quantity: 60 {Tablet} Refills: 0 Ordered: 30-Jan-2022 Clarisa Maharaj LPN Start : 07-Jul-2020 End : 30-Jan-2022 Inactive loratadine 10 mg oral tablet (20 sources) Loratadine 10 MG Oral Tablet (10 MG) Inactive mirtazapine 30 mg oral tablet (20 sources) Start: 12-06-2020 End: 12-06-2020 take 1 tablet by mouth once daily at bedtime Remeron 30 MG Oral Tablet 1 (one) Tablet qhs for 0 days Quantity: 30 {Tablet} Refills: 0 Ordered: 06-Dec-2020 Nathalie Flory Start : 06-Dec-2020 End : 06-Dec-2020 Discontinued Comments: per [place] Comment on above: per [place] MVI (10 sources) MVI Active OLANZapine 10 mg oral tablet (14 sources) Atypical Antipsychotic take 1 mg by mouth once daily OLANZapine 10 MG Oral Tablet daily (10 MG) Active OMega (10 sources) OMega Active predniSONE 10 mg oral tablet (20 sources) Start: 09-10-2020 End: 10-05-2020 predniSONE 10 MG Oral Tablet 1 (one) Tablet 2 bid x 3 days 1 bid x 3 days 1daily x 3 days for 0 days Quantity: 21 {Tablet} Refills: 0 Ordered: 05-Oct-2020 Dalton Lozano LPN Start : 10-Sep-2020 End : 05-Oct-2020 Inactive Comments: with food Comment on above: with food QC Tumeric Complex 500 MG Oral Capsule (20 sources) QC Tumeric Compl ex 500 MG Oral Capsule (500 MG) Inactive QC Tumeric Compl ex 500 MG Oral Capsule (500 MG) Active sertraline 50 mg oral tablet (14 sources) Serotonin Reuptake Inhibitor take 1 mg by mouth once daily Zoloft 50 MG Oral Tablet daily (50 MG) Active traZODone hydrochloride 50 mg oral tablet (20 sources) Serotonin Reuptake Inhibitor Start: 01-17-2021 traZODone HCl 50 MG Oral Tablet 1-1 1/2 Tablet qpm for 0 days Quantity: 30 {Tablet} Refills: 0 Ordered: 17-Jan-2021 Flory Zelaya Start : 17-Jan-2021 Active Comments: per [place] Comment on above: per [place] Problems Active Problems Problem Classification Problem Date Documented Da te Episodic/Chronic Allergic reactions (20 sources) Allergic condition; Translations: [Allergies] 10-05-2020 Episodic Comment on above: tested in 97 had mon ly shots Anxiety disorders (20 sources) Mixed anxiety and depressive disorder; Translations: [Anxiety and depression] 07-07-2020 Chronic Comment on above: on , rocky pfe[facility] switched from abilif y to something else, going to call us with namewas on , following at [facility] Chronic obstructive pulmonary disease and bronchiectasis (20 sources) Bronchitis; Translations: [Bronchitis] 10-05-2020 Episodic Disorders of lipid metabolism (20 sources) Hypercholesterolemi a; Translations: [Hypercholesteremia ] Onset: 06-27-2024 07-07-2020 Chronic Comment on above: on lipitor 20mg? 09/15 1: chol 208, HDL 48, LDL 132, trig 55911/22: chol 279, HDL 56, LDL 200, trig 115 Was on lipitor 20mg? 10/04: chol 208, HDL 48, LDL 132, trig 93084/22: chol 279, HDL 56, LDL 200, trig 115 recheck may 2022Was on lipitor 20mg? 10/04: chol 208, HDL 48, LDL 132, trig 41727/22: chol 279, HDL 56, LDL 200, trig 115 recheck may 2022 - n ot done, will make adjustments once he completes labon atorvastatin10/04: chol 208, HDL 48, LDL 132, trig 93878/22: chol 279, HDL 56, LDL 200, trig 115 Headache; including migraine (20 sources) Headache; Translations: [Headache] 01-17-2021 Episodic Comment on above: history of head trau ma and headache current Immunizations and screening for infectious disease (20 sources) Needs influenza immunization; Translations: [Need for prophylactic vaccination and inoculation against influenza (Renamed from Need for immunization against influenza)] 01-30-2022 Episodic Mood disorders (20 sources) Bipolar I disorder; Translations: [Bipolar 1 disorder] Resolved: 01-30-2022 01-17-2021 Chronic Comment on above: 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, 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, 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, 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 psychiatrist Jan 15He is not at baseline Nutritional deficiencies (20 sources) Vitamin D deficiency; Translations: [Vitamin D deficiency] Onset: 06-27-2024 01-30-2022 Chronic Other circulatory disease (1 source) Elevated blood-pressure reading, without diagnosis of hypertension; Translations: [Elevated blood-pressure reading, without diagnosis of hypertension] Onset: 06-27-2024 Episodic Other gastrointestinal disorders (1 source) Intra-abdominal and pelvic swelling, mass and lump, unspecified site; Translations: [Intra-abdominal and pelvic swelling, mass and lump, unspecified site] Onset: 08-18-2024 Episodic Other lower respiratory disease (20 sources) Dyspnea on exertion; Translations: [Short of breath on exertion] 07-07-2020 Episodic Comment on above: 18 years ago problem s with breathing worse with exercise ? excercised induced asthmaEcho and stress test 2018 normal trace mitral regurg 18 years ago problem s with breathing worse with exercise ? excercised induced asthmaEcho and stress test 2018 normal trace mitral regurgTee done 08-23-17 showing 55-60%EF old records reviewed Other lower respiratory disease (1 source) Shortness of breath Episodic Other lower respiratory disease (20 sources) Cough; Translations: [Cough] 10-05-2020 Episodic Other nutritional; endocrine; and metabolic disorders (6 sources) Body mass index 25-29 - overweight; Translations: [BMI 28.0-28.9,adult] 07-07-2020 Chronic Other nutritional; endocrine; and metabolic disorders (6 sources) Body mass index 25-29 - overweight; Translations: [BMI 28.0-28.9,adult] 07-07-2020 Episodic Other nutritional; endocrine; and metabolic disorders (20 sources) Overweight in adulthood with body mass index of 25 or more but less than 30; Translations: [BMI 26.0-26.9,adult] Resolved: 06-02-2022 01-17-2021 Episodic Other screening for suspected conditions (not mental disorders or infectious disease) (20 sources) Screening status; Translations: [Encounter for screening for malignant neoplasm of colon (Renamed from Special screening for malignant neoplasms, colon)] Onset: 06-27-2024 09-10-2020 Episodic Other upper respiratory disease (20 sources) Allergic rhinitis; Translations: [Allergic rhinitis] 07-07-2020 Chronic Other upper respiratory infections (20 sources) Sinusitis; Translations: [Sinusitis] 10-05-2020 Chronic Phlebitis; thrombophlebitis and thromboembolism (1 source) Acute embolism and thrombosis of unspecified deep veins of unspecified lower extremity; Translations: [Acute embolism and thrombosis of unspecified deep veins of unspecified lower extremity] Onset: 09-18-2024 Episodic Pneumonia (except that caused by tuberculosis or sexually transmitted disease) (20 sources) Pneumonia; Translations: [Pneumonia] Resolved: 01-29-2022 10-05-2020 Episodic Comment on above: resolved was rt midd le lobe increased markings Residual codes; unclassified (20 sources) Non-smoker; Translations: [Nonsmoker] 09-10-2020 Episodic Residual codes; unclassified (20 sources) Insomnia; Translations: [Insomnia] 01-17-2021 Episodic Comment on above: on trazadone on trazadone every n ight, sleeping well Schizophrenia and other psychotic disorders (20 sources) Delusional disorder; Translations: [Delusional disorder] 01-17-2021 Chronic Comment on above: Was put on Abilify a nd remeron and trazodone, since trazadone and remeron interact with Serotonin, will keep on Abilify and trazodone hold remeron. Suicide and intentional self-inflicted injury (20 sources) Suicidal thoughts; Translations: [Suicidal ideation] 01-17-2021 Episodic Unclassified (20 sources) Unclassified (20 sources) Non-smoker; Translations: [Nonsmoker] 07-07-2020 Unclassified (2 sources) BMI 27.0-27.9,adult Past or Other Problems Problem Classification Problem Date Documented Da te Episodic/Chronic Mood disorders (20 sources) Mood disorders Unclassified (16 sources) Encounter for screening for malignant neoplasm of colon (Renamed from Special screening for malignant neoplasms, colon); Translations: [Screening status] 07-07-2020 Unclassified (17 sources) Short of breath on exertion Unclassified (13 sources) BMI 28.0-28.9,adult Unclassified (10 sources) Hypercholesteremia Results Test Name Value Interpretation Reference Range Facility Abdomen/Pelvis WITH Contrast on 08-13-2024 Abdomen/Pelvis WITH Contrast [facility] [address] [place] [address] [id number] Abdomen/Pelvis WITH Contrast MR#: [id number] Acct: [id number] Name: HARITHA CAPELLAN Rep #: [id number] : 1970 M 54 From: Simeon Euceda MD PCP: EDITH Ellison Status: REG CLI Study: Abdomen/Pelvis WITH Contrast Date of Exam: Exam# [id number] Ordering Dr: Lynn Arndt [employer]AREHOU[employer] PROCEDURE: ABDOMEN/PELVIS WITH CONTRAST (procedure code CTABDPELW), 08/13/2024 REASON FOR EXAM: ABD MASS TECHNIQUE: CT abdomen and pelvis was performed with IV contrast. Multiplanar reformats were generated. IV CONTRAST: Isovue-300 VOLUME: 98mL Oral contrast: Readi-CAT; dose information not provided. RADIATION DOSE SUMMARY: CTDlvol: 12.15+ 15.91+ 20.57 mGy DLP: 1345.99 mGycm One or more dose reduction techniques were used (e.g., Automated exposure control, adjustment of the mA and/or kV according to patient size, use of iterative reconstruction technique). COMPARISON: None FINDINGS: Lung bases: Minimal atelectasis/scarring.. Liver: Faint geographic hypoattenuation in the RIGHT lobe, favored either perfusional or reflective of geographic steatosis. Additional likely focal hepatic steatosis along the gallbladder fossa, normal variant. Spleen: Unremarkable. Gallbladder: Unremarkable. Pancreas: Unremarkable. Adrenals: Unremarkable. Kidneys: Unremarkable. Bowel: Apparent mild descending and rectosigmoid colonic wall thickening may be related to underdistention.. Reported appendectomy.. Single descending colonic diverticulum. Lymph nodes: Unremarkable. Vasculature: Unremarkable. Peritoneum: Unremarkable. Bladder: Bladder wall thickening versus underdistention.. Reproductive Organs: Prostate is top-normal in size. Body Wall: Tiny fat containing umbilical hernia.. Bones: Multilevel spondylosis.. CT/Abdomen/Pelvis WITH Contrast IMPRESSION: 1. No abdominal mass identified. Correlate with the location of the suspected mass. 2. Mild descending colonic and rectosigmoid wall thickening could be related to underdistention or perhaps proctocolitis. 3. Bladder wall thickening versus underdistention. Correlate for cystitis. 4. Additional description as above. Reading Location: [id number] CC: EDITH Arndt Puddler Helper: Signed Normal [facility] CBC W/Diff, Automatedon - Absolute Lymph 1.28 X10 3/uL Normal 0.83-4.51 [facility] Comment on above: Performed By: #### L 501.9910, L500.4100, L501.9520, L500.4050, L100.0100, L300.3900, L300.4310 #### [facility] [address] [place], [address] Absolute Neut 3.8 X10 3/uL Normal 2.0-7.7 [facility] Comment on above: Performed By: #### L 501.9910, L500.4100, L501.9520, L500.4050, L100.0100, L300.3900, L300.4310 #### [facility] [address] [place], [address] Basophils/100 WBC (Bld) 0.9 % Normal 0-1 [facility] Comment on above: Performed By: #### L 501.9910, L500.4100, L501.9520, L500.4050, L100.0100, L300.3900, L300.4310 #### [facility] [address] [place], [address] Eosinophils/100 WBC (Bld) 2.9 % Normal 0-5 [facility] Comment on above: Performed By: #### L 501.9910, L500.4100, L501.9520, L500.4050, L100.0100, L300.3900, L300.4310 #### [facility] [address] [place], [address] Erythrocyte distribution width (RBC) [Ratio] 13.3 % Normal 11.6-14.6 [facility] Comment on above: Performed By: #### L 501.9910, L500.4100, L501.9520, L500.4050, L100.0100, L300.3900, L300.4310 #### [facility] [address] [place], [address] Hematocrit (Bld) [Volume fraction] 40.5 % Normal 40-54 [facility] Comment on above: Performed By: #### L 501.9910, L500.4100, L501.9520, L500.4050, L100.0100, L300.3900, L300.4310 #### [facility] [address] [place], [address] Hemoglobin (Bld) [Mass/Vol] 14.0 g/dL Normal 13.0-16.5 [facility] Comment on above: Performed By: #### L 501.9910, L500.4100, L501.9520, L500.4050, L100.0100, L300.3900, L300.4310 #### [facility] [address] [place], [address] IG% 0.200 Normal 0.0-0.9 [facility] Comment on above: Result Comment: IG% - Immature Granulocytes (promyelocytes, myelocytes and metamyelocytes) > 1% indicates that a LEFT SHIFT is Present. Performed By: #### L 501.9910, L500.4100, L501.9520, L500.4050, L100.0100, L300.3900, L300.4310 #### [facility] [address] [place], [address] Lymphocytes/100 WBC (Bld) 21.9 % Normal 19-41 [facility] Comment on above: Performed By: #### L 501.9910, L500.4100, L501.9520, L500.4050, L100.0100, L300.3900, L300.4310 #### [facility] [address] [place], [address] MCH (RBC) [Entitic mass] 31.4 pg Normal 27.0-32.0 [facility] Comment on above: Performed By: #### L 501.9910, L500.4100, L501.9520, L500.4050, L100.0100, L300.3900, L300.4310 #### [facility] [address] [place], [address] MCHC (RBC) [Mass/Vol] 34.6 g/dL Normal 32-36 [facility] Comment on above: Performed By: #### L 501.9910, L500.4100, L501.9520, L500.4050, L100.0100, L300.3900, L300.4310 #### [facility] [address] [place], [address] MCV (RBC) [Entitic vol] 90.8 fL Normal 80-94 [facility] Comment on above: Performed By: #### L 501.9910, L500.4100, L501.9520, L500.4050, L100.0100, L300.3900, L300.4310 #### [facility] [address] [place], [address] Monocytes/100 WBC (Bld) 9.2 % Normal 0-10 [facility] Comment on above: Performed By: #### L 501.9910, L500.4100, L501.9520, L500.4050, L100.0100, L300.3900, L300.4310 #### [facility] [address] [place], [address] Neutrophils/100 WBC (Bld) 64.9 % Normal 47-70 [facility] Comment on above: Performed By: #### L 501.9910, L500.4100, L501.9520, L500.4050, L100.0100, L300.3900, L300.4310 #### [facility] [address] [place], [address] Nucleated RBC (Bld) [#/Vol] 0 10*3/uL Normal 0-5 [facility] Comment on above: Performed By: #### L 501.9910, L500.4100, L501.9520, L500.4050, L100.0100, L300.3900, L300.4310 #### [facility] [address] [place], [address] Platelet mean volume (Bld) [Entitic vol] 9.5 fL Normal 6.2-12.0 [facility] Comment on above: Performed By: #### L 501.9910, L500.4100, L501.9520, L500.4050, L100.0100, L300.3900, L300.4310 #### [facility] [address] [place], [address] Platelets (Bld) [#/Vol] 212 10*3/uL Normal 150-450 [facility] Comment on above: Performed By: #### L 501.9910, L500.4100, L501.9520, L500.4050, L100.0100, L300.3900, L300.4310 #### [facility] [address] [place], [address] RBC (Bld) [#/Vol] 4.46 10*6/uL Low 4.6-6.2 [facility] Comment on above: Performed By: #### L 501.9910, L500.4100, L501.9520, L500.4050, L100.0100, L300.3900, L300.4310 #### [facility] [address] [place], [address] RDW SD 44.5 fl High 35.1-43.9 [facility] Comment on above: Performed By: #### L 501.9910, L500.4100, L501.9520, L500.4050, L100.0100, L300.3900, L300.4310 #### [facility] [address] [place], [address] WBC (Bld) [#/Vol] 5.9 10*3/uL Normal 4.4-11.0 [facility] Comment on above: Performed By: #### L 501.9910, L500.4100, L501.9520, L500.4050, L100.0100, L300.3900, L300.4310 #### [facility] [address] [place], [address] Comprehensive Metabolic Prof ilon 06-25-2024 Albumin [Mass/Vol] 4.3 g/dL Normal 3.5-5.0 [facility] Comment on above: Performed By: #### L 501.9910, L500.4100, L501.9520, L500.4050, L100.0100, L300.3900, L300.4310 #### [facility] [address] [place], [place], [id number] ([phone]) Albumin/Globulin [Mass ratio] 1.4 {ratio} Normal 0.9-2.4 [facility] Comment on above: Performed By: #### L 501.9910, L500.4100, L501.9520, L500.4050, L100.0100, L300.3900, L300.4310 #### [facility] Laboratory [address] [place], [address] ALK PHOS 118 U/L Normal 40-129 [facility] Comment on above: Performed By: #### L 501.9910, L500.4100, L501.9520, L500.4050, L100.0100, L300.3900, L300.4310 #### [facility] [address] [place], [place], [id number] (849) ALT [Catalytic activity/Vol] 28 U/L Normal <=46 [facility] Comment on above: Performed By: #### L 501.9910, L500.4100, L501.9520, L500.4050, L100.0100, L300.3900, L300.4310 #### [facility] [address] [place], [address] AST [Catalytic activity/Vol] 26 U/L Normal <=37 [facility] Comment on above: Performed By: #### L 501.9910, L500.4100, L501.9520, L500.4050, L100.0100, L300.3900, L300.4310 #### [facility] [address] [place], [address] Bilirubin [Mass/Vol] 0.49 mg/dL Normal 0.00-1.30 [facility] Comment on above: Performed By: #### L 501.9910, L500.4100, L501.9520, L500.4050, L100.0100, L300.3900, L300.4310 #### [facility] [address] [place], [address] BUN/CRE 14.2 RATIO Normal 10-20 [facility] Comment on above: Performed By: #### L 501.9910, L500.4100, L501.9520, L500.4050, L100.0100, L300.3900, L300.4310 #### [facility] [address] [place], [address] Calcium [Mass/Vol] 9.3 mg/dL Normal 7.6-11.0 [facility] Comment on above: Performed By: #### L 501.9910, L500.4100, L501.9520, L500.4050, L100.0100, L300.3900, L300.4310 #### [facility] [address] [place], [address] Chloride [Moles/Vol] 104 mmol/L Normal 98-108 [facility] Comment on above: Performed By: #### L 501.9910, L500.4100, L501.9520, L500.4050, L100.0100, L300.3900, L300.4310 #### [facility] [address] [place], [place], [id number] CO2 [Moles/Vol] 22.7 mmol/L Normal 21.0-32.0 [facility] Comment on above: Performed By: #### L 501.9910, L500.4100, L501.9520, L500.4050, L100.0100, L300.3900, L300.4310 #### [facility] [address] [place], [place], [id number] Creatinine [Mass/Vol] 1.00 mg/dL Normal 0.70-1.20 [facility] Comment on above: Performed By: #### L 501.9910, L500.4100, L501.9520, L500.4050, L100.0100, L300.3900, L300.4310 #### [facility] [address] [place], [place], [id number] GAP 12 Normal 5-15 [facility] Comment on above: Performed By: #### L 501.9910, L500.4100, L501.9520, L500.4050, L100.0100, L300.3900, L300.4310 #### [facility] [address] [place], [place], [id number] GFR/1.73 sq M.predicted among non-blacks MDRD (S/P/Bld) [Vol rate/Area] 90 mL/min/{1.73_m2} Normal >60 [facility] Comment on above: Result Comment: mL/m in/1.73m2 CKD-EPI Creatinine Equation (2020) Performed By: #### L 501.9910, L500.4100, L501.9520, L500.4050, L100.0100, L300.3900, L300.4310 #### [facility] [address] [place], [address] Globulin (S) [Mass/Vol] 3.0 g/dL Normal 2.2-4.2 [facility] Comment on above: Performed By: #### L 501.9910, L500.4100, L501.9520, L500.4050, L100.0100, L300.3900, L300.4310 #### [facility] [address] [place], [address] Glucose [Mass/Vol] 85 mg/dL Normal 70-99 [facility] Comment on above: Performed By: #### L 501.9910, L500.4100, L501.9520, L500.4050, L100.0100, L300.3900, L300.4310 #### [facility] [address] [place], [address] Potassium [Moles/Vol] 4.2 mmol/L Normal 3.3-5.1 [facility] Comment on above: Performed By: #### L 501.9910, L500.4100, L501.9520, L500.4050, L100.0100, L300.3900, L300.4310 #### [facility] [address] [place], [address] Sodium [Moles/Vol] 139 mmol/L Normal 133-145 [facility] Comment on above: Performed By: #### L 501.9910, L500.4100, L501.9520, L500.4050, L100.0100, L300.3900, L300.4310 #### [facility] [address] [place], [address] T PROT 7.3 g/dL Normal 5.9-8.4 [facility] Comment on above: Performed By: #### L 501.9910, L500.4100, L501.9520, L500.4050, L100.0100, L300.3900, L300.4310 #### [facility] [address] [place], [address] Urea nitrogen [Mass/Vol] 14 mg/dL Normal 4-19 [facility] Comment on above: Performed By: #### L 501.9910, L500.4100, L501.9520, L500.4050, L100.0100, L300.3900, L300.4310 #### [facility] [address] [place], [address] Lipid Profileon 06-25-2024 CHOL:HDL 4.07 Normal [facility] Comment on above: Performed By: #### L 501.9910, L500.4100, L501.9520, L500.4050, L100.0100, L300.3900, L300.4310 #### [facility] [address] [place], [address] Cholesterol [Mass/Vol] 272 mg/dL High <=200 [facility] Comment on above: Result Comment: Chol esterol level, Desirable <200 mg/dL Borderline high cholesterol 200-239 mg/dL High cholesterol >=240 mg/dL Recommendations of the NCEP Adult Treatment Panel for the following risk-cutoff thresholds for the [place] population. Performed By: #### L 501.9910, L500.4100, L501.9520, L500.4050, L100.0100, L300.3900, L300.4310 #### [facility] [address] [place], [place], [phone] (599) Cholesterol in HDL [Mass/Vol] 67 mg/dL Normal [facility] Comment on above: Result Comment: Tanika onal Cholesterol Education Program (NCEP) guidelines: <40 mg/dL: Low HDL-cholesterol (major risk factor for CHD) >= 60 mg/dL: High HDL-cholesterol (negative risk factor for CHD) HDL-cholesterol is affected by a number of factors, e.g. smoking, exercise, hormones, sex and age. Performed By: #### L 501.9910, L500.4100, L501.9520, L500.4050, L100.0100, L300.3900, L300.4310 #### [facility] [address] [place], [address] Cholesterol in LDL [Mass/Vol] 171 mg/dL Normal [facility] Comment on above: Result Comment: Bord ilnozn=370-892 mg/dL Higher Mlql=843 mg/dL or greater Performed By: #### L 501.9910, L500.4100, L501.9520, L500.4050, L100.0100, L300.3900, L300.4310 #### [facility] [address] [place], [place], [phone] (833) Cholesterol in VLDL [Mass/Vol] 34 mg/dL Normal 5-40 [facility] Comment on above: Performed By: #### L 501.9910, L500.4100, L501.9520, L500.4050, L100.0100, L300.3900, L300.4310 #### [facility] [address] [place], [address] Triglyceride [Mass/Vol] 171 mg/dL Normal [facility] Comment on above: Result Comment: The drugs N-Acetylcysteine and Metamizole may falsely depress this assay. Normal range: <150 mg/dL Borderline High: 150-199 mg/dL High: 200-499 mg/dL Very High: >500 mg/dL Performed By: #### L 501.9910, L500.4100, L501.9520, L500.4050, L100.0100, L300.3900, L300.4310 #### [facility] [address] [place], [address] PSA,Total - Annual Screenon 06-25-2024 PSA,TOT SCREEN 0.51 ng/mL Normal 0.02-4.00 [facility] Comment on above: Result Comment: This test was performed using the [employer] tPSA method. Measured values of a patient??sample can vary depending on the testing procedure used. PSA values determined on patient samples by different testing procedures cannot be used interchangeably. If there is a change in PSA assays while monitoring therapy, sequential testing should be performed to confirm baseline values. Performed By: #### L 501.9910, L500.4100, L501.9520, L500.4050, L100.0100, L300.3900, L300.4310 #### [facility] [address] [place], [place], [id number] Partial Thromboplast Timeon 06-25-2024 aPTT Coag (Bld) [Time] 23.3 s Low 24.1-36.2 [facility] Comment on above: Performed By: #### L 501.9910, L500.4100, L501.9520, L500.4050, L100.0100, L300.3900, L300.4310 #### [facility] [address] [place], [place], [id number] Prothrombin Time w/INRon INR Coag (PPP) [Relative time] 0.9 {INR} Normal [facility] Comment on above: Performed By: #### L 501.9910, L500.4100, L501.9520, L500.4050, L100.0100, L300.3900, L300.4310 #### [facility] [address] [place], [place], [id number] PT Coag (PPP) [Time] 12.8 s Normal 11.7-14.9 [facility] Comment on above: Performed By: #### L 501.9910, L500.4100, L501.9520, L500.4050, L100.0100, L300.3900, L300.4310 #### [facility] [address] [place], [address] Thyroid Stim Hormone (TSH)on 06-25-2024 TSH 2.900 uIU/mL Normal 0.300-4.200 [facility] Comment on above: Performed By: #### L 501.9910, L500.4100, L501.9520, L500.4050, L100.0100, L300.3900, L300.4310 #### [facility] [address] [place], [address] Venous Duplex US, Unilateral on 06-25-2024 Venous Duplex US, Unilateral [facility] [address] [place] [address] Venous Duplex US, Unilateral 06/25/24 1544 MR#: [id number] Acct: [id number] Name: HARITHA CAPELLAN Rep #: [id number] : 1970 53 From: Thiago Malhotra MD Attending Dr: Lynn Arndt, SERAFIN-C Status: REG CLI Ordering Dr: Lynn Arndt WAREHOUSE MAN-C Date: 06/25/24 Location: [facility] Sex: M C Admitted: Reason For Study Reason For Study: Right leg swelling RIGHT LEFT GSV is normal. CFV is compressible, spontaneous, phasic, competent, CFV is compressible, spontaneous, phasic, competent and demonstrates normal augmentation. and demonstrates normal augmentation. FV is compressible, spontaneous, phasic, competent and demonstrates normal augmentation. POP V is compressible, spontaneous, phasic, competent and demonstrates normal augmentation. Acute deep vein thrombosis is noted in the T/P Trunk, PTV, PeroV and SoleusV. It is dilated and NONCOMPRESSIBLE. Procedure This is a venous duplex using B-mode, color flow and spectral Doppler. Exam performed in department. A preliminary report was called and/or faxed to [facility]UNL[facility]. VL/Venous Duplex US, Unilateral Interpretation Summary Acute deep vein thrombosis noted in the right tibioperoneal trunk vein, posterior tibial vein, peroneal vein, soleus vein Ordering Physician: Lynn Arndt Referring Physician: Lynn Arndt Performed By: Neeta Enriquez T 06/25/241716 Date Thiago Malhotra MD CC: [employer]-C Lynn Arndt Date Dictated: 06/25/241543 Date Transcribed: 06/25/241716 Puddler Helper: Signed Normal [facility] CALCIFEDIOL (40760)Ordered B y: [employer] on 01-17-2021 25-hydroxyvitamin D [Mass/Vol] 28.1 ng/mL Abnormal 30.0-100.0 [facility]; [facility] Work Phone: Comment on above: Vitamin D deficiency has been defined by the [place] ofMedicine and an Endocrine Society practice guideline as alevel of serum 25-OH vitamin D less than 20 ng/mL (1,2).The Endocrine Society went on to further define vitamin Dinsufficiency as a level between 21 and 29 ng/mL (2).1. IOM ([place] of Medicine). 2010. Dietary reference intakes for calcium and D. [place]: The National Academies Press.2. Maddi MF, Igor NC, Gaston DICKEY, et al. Evaluation, treatment, and prevention of vitamin D deficiency: an Endocrine Society clinical practice guideline. JCEM. 2010; 96(7):1911-30. PATIENT NOT FASTINGP ERFORMED BY: [facility] Gklhet9130 [facility] [id number] CBC & PLATELETS (AUTO) (8502 7)Ordered By: [employer] on 01-17-2021 Erythrocyte distribution width (RBC) [Ratio] 12.7 % Normal 11.6-15.4 [facility]; [facility] Work Phone: Comment on above: PATIENT NOT FASTINGP ERFORMED BY: CB [facility] Htasha27[address] [place] [id number] Hematocrit (Bld) [Volume fraction] 46.4 % Normal 37.5-51.0 [facility]; [facility] Work Phone: Comment on above: PATIENT NOT FASTINGP ERFORMED BY: CB [facility] Gvlzru6539 [address] RoadD[address] [place] [id number] Hemoglobin (Bld) [Mass/Vol] 15.3 g/dL Normal 13.0-17.7 [facility]; [facility] Work Phone: Comment on above: PATIENT NOT FASTINGP ERFORMED BY: CB [facility] Gctsfi7403 [address]Dublin [place] [id number] MCH (RBC) [Entitic mass] 30.8 pg Normal 26.6-33.0 [facility]; [facility] Work Phone: Comment on above: PATIENT NOT FASTINGP ERFORMED BY: CB [facility] Kjqhom23[address] [place] [id number] MCHC (RBC) [Mass/Vol] 33.0 g/dL Normal 31.5-35.7 [facility]; [facility] Work Phone: Comment on above: PATIENT NOT FASTINGP ERFORMED BY: CB [facility] Lriqdg3444 [address] [place] [id number] MCV (RBC) [Entitic vol] 93 fL Normal 79-97 [facility]; [facility] Work Phone: Comment on above: PATIENT NOT FASTINGP ERFORMED BY: CB [facility] Ckbarm4545 [address] [place] [id number] Platelets (Bld) [#/Vol] 224 10*3/uL Normal 150-450 [facility]; [facility] Work Phone: Comment on above: PATIENT NOT FASTINGP ERFORMED BY: CB [facility] Ztqemu2878 [address] RoadD[address] [place] [id number] RBC (Bld) [#/Vol] 4.97 10*6/uL Normal 4.14-5.80 Compr [facility]; [facility] Work Phone: Comment on above: PATIENT NOT FASTINGP ERFORMED BY: EMORY Willis[address] [place] [id number] WBC (Bld) [#/Vol] 5.9 10*3/uL Normal 3.4-10.8 Compre [facility]; [facility] Work Phone: Comment on above: PATIENT NOT FASTINGP ERFORMED BY: EMORY LabCocatalina WillisWgsnvl7660 [address] Roadblin [place] [id number] RENAL FUNCTION PANEL (01540) Ordered By: [employer] on 01-17-2021 Albumin [Mass/Vol] 4.7 g/dL Normal 3.8-4.9 [facility]; [facility] Work Phone: Comment on above: PATIENT NOT FASTINGP ERFORMED BY: EMORY Willis6[address] RoadNov[facility] [place] [id number] Calcium [Mass/Vol] 10.1 mg/dL Normal 8.7-10.2 [facility]; [facility] Work Phone: Comment on above: PATIENT NOT FASTINGP ERFORMED BY: EMORY Willis[address] [facility] [place] [id number] Chloride [Moles/Vol] 101 mmol/L Normal 96-106 [facility]; [facility] Work Phone: Comment on above: PATIENT NOT FASTINGP ERFORMED BY: EMORY LabAnu Gadvbf[address] [facility] [place] [id number] CO2 [Moles/Vol] 26 mmol/L Normal 20-29 [facility]; [facility] Work Phone: Comment on above: PATIENT NOT FASTINGP ERFORMED BY: EMORY LabAnu GrandeFaczfp[address] [facility] [place] [id number] Creatinine [Mass/Vol] 0.99 mg/dL Normal 0.76-1.27 [facility]; [facility] Work Phone: Comment on above: PATIENT NOT FASTINGP ERFORMED BY: [facility]6[address] [facility] [id number] GFR/1.73 sq M.predicted among blacks CKD-EPI (S/P/Bld) [Vol rate/Area] 102 mL/min/1.73 Normal [facility]; [facility] Work Phone: Comment on above: [facility] in compliance with the current recommendations of the National Kidney Foundation. [facility] will update reporting as new guidelines are published from the NKF-ASN Task force. PATIENT NOT FASTINGP ERFORMED BY: [facility]6[address] [facility] [id number] GFR/1.73 sq M.predicted among non-blacks CKD-EPI (S/P/Bld) [Vol rate/Area] 88 mL/min/1.73 Normal [facility]; [facility] Work Phone: Comment on above: PATIENT NOT FASTINGP ERFORMED BY: [facility]6[address] [facility] [id number] Glucose [Mass/Vol] 95 mg/dL Normal 65-99 [facility]; [facility] Work Phone: Comment on above: PATIENT NOT FASTINGP ERFORMED BY: [facility]6[address] [facility] [id number] Phosphate [Mass/Vol] 3.1 mg/dL Normal 2.8-4.1 [facility]; [facility] Work Phone: Comment on above: PATIENT NOT FASTINGP ERFORMED BY: [facility]6[address] [facility] [id number] Potassium [Moles/Vol] 5.1 mmol/L Normal 3.5-5.2 [facility]; [facility] Work Phone: Comment on above: PATIENT NOT FASTINGP ERFORMED BY: [facility]6[address] [facility] [id number] Sodium [Moles/Vol] 139 mmol/L Normal 134-144 [facility]; [facility] Work Phone: Comment on above: PATIENT NOT FASTINGP ERFORMED BY: CB [facility] Suglit2[address] [place] [id number] Urea nitrogen [Mass/Vol] 13 mg/dL Normal 6-24 [facility]; [facility] Work Phone: Comment on above: PATIENT NOT FASTINGP ERFORMED BY: CB [facility] Rvrugl3694 [address] RoadDublin [place] [id number] Urea nitrogen/Creatini ne [Mass ratio] 13 mg/mg Normal 9-20 [facility]; [facility] Work Phone: Comment on above: PATIENT NOT FASTINGP ERFORMED BY: CB [facility] Ztzkcq5536 [address] RoadDublin [place] [id number] TSH (THYROID STIMULATING HOR SONA) (41041)Ordered By: [employer] on 01-17-2021 TSH Qn 1.460 {uIU/mL} Normal 0.450-4.500 Comprehen s[facility]; [facility] Work Phone: Comment on above: PATIENT NOT FASTINGP ERFORMED BY: CB [facility] Cmxedn8[address] [place] [id number] VITAMIN B12 AND FOLATES (826 07)Ordered By: [employer] on 01-17-2021 Cobalamin (Vitamin B12) [Mass/Vol] 515 pg/mL Normal 232-1245 [facility]; [facility] Work Phone: Comment on above: PATIENT NOT FASTINGP ERFORMED BY: CB [facility] Xwqecp8540 [address] RoadDublin [place] [id number] Folate [Mass/Vol] 13.0 ng/mL Normal Compreh ens[facility]; [facility] Work Phone: Comment on above: A serum folate lenora ntration of less than 3.1 ng/mL isconsidered to represent clinical deficiency. PATIENT NOT FASTINGP ERFORMED BY: CB [facility] Xywici4[address] RoadDublin [place] [id number] LIPID PANEL (64079)Ordered B y: [employer] on 09-28-2020 Cholesterol [Mass/Vol] 208 mg/dL Abnormal 100-199 [facility]; [facility] Work Phone: Comment on above: PATIENT WAS FASTINGP ERFORMED BY: EMORY [facility] Ojyytb[address] FinanceitDublin [place] [id number] Cholesterol in HDL [Mass/Vol] 48 mg/dL Normal [facility]; [facility] Work Phone: Comment on above: PATIENT WAS FASTINGP ERFORMED BY: EMORY [facility] Uduhdo3938 [address] RoadDublin [place] [id number] Triglyceride [Mass/Vol] 158 mg/dL Abnormal 0-149 [facility]; [facility] Work Phone: Comment on above: PATIENT WAS FASTINGP ERFORMED BY: EMORY LabCocatalina Qjzurt2[address] RoadDublin [place] [id number] LIPID PANEL (09324) 28 mg/dL Normal 5-40 [facility]; [facility] Work Phone: Comment on above: PATIENT WAS FASTINGP ERFORMED BY: EMORY [facility] Whjruf8086 [address] RoadDublin [place] [id number] LIPID PANEL (36254) 132 mg/dL Abnormal 0-99 [facility]; [facility] Work Phone: Comment on above: PATIENT WAS FASTINGP ERFORMED BY: EMORY LabCocatalina Vbdodo[address] [facility] HospitalDuin [place] [id number] LIPID PANEL (13683) 2.8 {ratio} Normal 0.0-3.6 [facility]; [facility] Work Phone: Comment on above: LDL/HDL Ratio Men Wo men 1/2 Avg.Risk 1.0 1.5 Avg.Risk 3.6 3.2 2X Avg.Risk 6.2 5.0 3X Avg.Risk 8.0 6.1 PATIENT WAS FASTINGP ERFORMED BY: EMORY [facility] Ahmowt[address] [facility] HospitalD[facility] [place] [id number] Vital Signs Date Time Vital Sign Value Performing Clinician Facility 06-02-2022 09:42-0500 Body height 182.88 cm Clarisa Maharaj LPN [facility]; [facility] Work Phone: 06-02-2022 09:42-0500 Body mass index (BMI) [Ratio] 29.29 kg/m2 Clarisa Slarb INFORMATION STRATEGIST [facility]; [facility] Work Phone: 06-02-2022 09:42-0500 Body surface area Derived from formula 2.2 m2 Clarisa Slarb INFORMATION STRATEGIST [facility]; [facility] Work Phone: 06-02-2022 09:42-0500 Body temperature 97.6 [degF] Clarisa Slarb INFORMATION STRATEGIST [facility]; [facility] Work Phone: Comment on above: Method: Temporal 06-02-2022 09:42-0500 Body weight 97.98 kg Clarisa Slarb INFORMATION STRATEGIST [facility]; [facility] Work Phone: 06-02-2022 09:42-0500 Diastolic blood pressure 76 mm[Hg] Clarisa Slarb INFORMATION STRATEGIST [facility]; [facility] Work Phone: Comment on above: Patient Position: Sitting; Cuff Location : Left Arm; Cuff Size: Standard 06-02-2022 09:42-0500 Heart rate 75 /min Clarisa Slarb INFORMATION STRATEGIST [facility]; [facility] Work Phone: Comment on above: Pattern: Regular 06-02-2022 09:42-0500 Respiratory rate 16 /min Clarisa Slarb INFORMATION STRATEGIST [facility]; [facility] Work Phone: Comment on above: Pattern: Unlabored 06-02-2022 09:42-0500 SaO2% (BldA) [Mass fraction] 97 % Clarisa Slarb INFORMATION STRATEGIST [facility]; [facility] Work Phone: Comment on above: Room air 06-02-2022 09:42-0500 Systolic blood pressure 118 mm[Hg] Clarisa Slarb INFORMATION STRATEGIST [facility]; [facility] Work Phone: Comment on above: Patient Position: Sitting; Cuff Location : Left Arm; Cuff Size: Standard 01-30-2022 09:37-0400 Body height 182.88 cm Clarisa Slarb INFORMATION STRATEGIST [facility]; [facility] Work Phone: 01-30-2022 09:37-0400 Body mass index (BMI) [Ratio] 29.57 kg/m2 Clarisa Slarb INFORMATION STRATEGIST [facility]; [facility] Work Phone: 01-30-2022 09:37-0400 Body surface area Derived from formula 2.21 m2 Clarisa Slarb INFORMATION STRATEGIST [facility]; [facility] Work Phone: 01-30-2022 09:37-0400 Body temperature 97.4 [degF] Clarisa Slarb INFORMATION STRATEGIST [facility]; [facility] Work Phone: 01-30-2022 09:37-0400 Body weight 98.88 kg Clarisa Slarb INFORMATION STRATEGIST [facility]; [facility] Work Phone: 01-30-2022 09:37-0400 Diastolic blood pressure 76 mm[Hg] Clarisa Slarb INFORMATION STRATEGIST [facility]; [facility] Work Phone: Comment on above: Patient Position: Sitting; Cuff Location : Left Arm; Cuff Size: Standard 01-30-2022 09:37-0400 Heart rate 74 /min Clarisa Slarb INFORMATION STRATEGIST [facility]; [facility] Work Phone: Comment on above: Pattern: Regular 01-30-2022 09:37-0400 Respiratory rate 16 /min Clarisa Slarb INFORMATION STRATEGIST [facility]; [facility] Work Phone: Comment on above: Pattern: Unlabored 01-30-2022 09:37-0400 SaO2% (BldA) [Mass fraction] 96 % Clarisa Slarb INFORMATION STRATEGIST [facility]; [facility] Work Phone: Comment on above: Room air 01-30-2022 09:37-0400 Systolic blood pressure 116 mm[Hg] Clarisa Slarb INFORMATION STRATEGIST [facility]; [facility] Work Phone: Comment on above: Patient Position: Sitting; Cuff Location : Left Arm; Cuff Size: Standard 01-17-2021 09:28-0400 Body height 182.88 cm Clarisa Slarb INFORMATION STRATEGIST [facility]; [facility] Work Phone: 01-17-2021 09:28-0400 Body mass index (BMI) [Ratio] 26.18 kg/m2 Clarisa Slarb INFORMATION STRATEGIST [facility]; [facility] Work Phone: 01-17-2021 09:28-0400 Body surface area Derived from formula 2.1 m2 Clarisa Slarb INFORMATION STRATEGIST [facility]; [facility] Work Phone: 01-17-2021 [id number]:[id number] Body temperature 97.1 [degF] Clarisa Slarb INFORMATION STRATEGIST [facility]; [facility] Work Phone: 01-17-2021 [id number]:28040 Body weight 87.54 kg Clarisa Slarb INFORMATION STRATEGIST [facility]; [facility] Work Phone: 01-17-2021 09:28-0400 Diastolic blood pressure 82 mm[Hg] Lcarisa Slarb INFORMATION STRATEGIST [facility]; [facility] Work Phone: Comment on above: Patient Position: Sitting; Cuff Location : Left Arm; Cuff Size: Standard 01-17-2021 09:28-0400 Heart rate 62 /min Clarisa Slarb INFORMATION STRATEGIST [facility]; [facility] Work Phone: Comment on above: Pattern: Regular 01-17-2021 09:28-0400 Respiratory rate 17 /min Clarisa Mauricerb INFORMATION STRATEGIST [facility]; [facility] Work Phone: Comment on above: Pattern: Unlabored 01-17-2021 09:28-0400 SaO2% (BldA) [Mass fraction] 97 % Clarisa Slarb INFORMATION STRATEGIST [facility]; [facility] Work Phone: Comment on above: Room air 01-17-2021 09:28-0400 Systolic blood pressure 132 mm[Hg] Clarisa Slarb INFORMATION STRATEGIST [facility]; [facility] Work Phone: Comment on above: Patient Position: Sitting; Cuff Location : Left Arm; Cuff Size: Standard 12-06-2020 13:21-0400 Body height 182.88 cm Yolanda Gant LPN [facility]; [facility] Work Phone: 12-06-2020 [id number] Body mass index (BMI) [Ratio] 27.94 kg/m2 Yolanda Gant LPN [facility]; [facility] Work Phone: 12-06-2020 13:21-0400 Body surface area Derived from formula 2.16 m2 Yolanda Gant PAM [facility]; [facility] Work Phone: 12-06-2020 13:21-040 Body temperature 98 [degF] Yolanda Gant LPN [facility]; [facility] Work Phone: Comment on above: Method: Temporal 12-06-2020 13:040 Body weight 93.45 kg Yolanda Gant LPN [facility]; [facility] Work Phone: 12-06-2020 13:21-0400 Diastolic blood pressure 80 mm[Hg] Yolanda Gant LPN [facility]; [facility] Work Phone: Comment on above: Patient Position: Sitting; Cuff Location : Left Arm; Cuff Size: Standard 12-06-2020 13:21-0400 Heart rate 98 /min Yolanda Gant LPN [facility]; [facility] Work Phone: Comment on above: Pattern: Regular 12-06-2020 13:21-0400 Respiratory rate 16 /min Yolanda Gant LPN [facility]; [facility] Work Phone: Comment on above: Pattern: Unlabored 12-06-2020 13:21-0400 SaO2% (BldA) [Mass fraction] 96 % Yolanda Gant LPN [facility]; [facility] Work Phone: Comment on above: Room air 12-06-2020 13:21-0400 Systolic blood pressure 112 mm[Hg] Yolanda Gant LPN [facility]; [facility] Work Phone: Comment on above: Patient Position: Sitting; Cuff Location : Left Arm; Cuff Size: Standard 11-29-2020 10:51-0400 Body height 182.88 cm Yolanda Gant LPN [facility]; [facility] Work Phone: 11-29-2020 10:51-0400 Body mass index (BMI) [Ratio] 27.94 kg/m2 Yolanda Gant LPN [facility]; [facility] Work Phone: 11-29-2020 10:51-0400 Body surface area Derived from formula 2.16 m2 Yolanda Gant LPN [facility]; [facility] Work Phone: 11-29-2020 10:51-0400 Body temperature 97.5 [degF] Yolanda Gant LPN [facility]; [facility] Work Phone: Comment on above: Method: Temporal 11-29-2020 10:51-0400 Body weight 93.45 kg Yolanda Gant LPN [facility]; [facility] Work Phone: 11-29-2020 10:51-0400 Diastolic blood pressure 86 mm[Hg] Yolanda Gant LPN [facility]; [facility] Work Phone: Comment on above: Patient Position: Sitting; Cuff Location : Left Arm; Cuff Size: Standard 11-29-2020 10:51-0400 Heart rate 72 /min Yolanda Gant LPN [facility]; [facility] Work Phone: Comment on above: Pattern: Regular 11-29-2020 10:51-0400 Respiratory rate 16 /min Yolanda Gant LPN [facility]; [facility] Work Phone: Comment on above: Pattern: Unlabored 11-29-2020 10:51-0400 SaO2% (BldA) [Mass fraction] 97 % Yolanda Gant LPN [facility]; [facility] Work Phone: Comment on above: Room air 11-29-2020 10:51-0400 Systolic blood pressure 138 mm[Hg] Yolanda Gant LPN [facility]; [facility] Work Phone: Comment on above: Patient Position: Sitting; Cuff Location : Left Arm; Cuff Size: Standard 10-05-2020 11:58-0400 Body height 182.88 cm Dalton Lozano LPN [facility]; [facility] Work Phone: 10-05-2020 11:58-0400 Body mass index (BMI) [Ratio] 28.08 kg/m2 Dalton Lozano LPN [facility]; [facility] Work Phone: 10-05-2020 11:58-0400 Body mass index (BMI) [Ratio] 27.94 kg/m2 Dalton Lozano LPN [facility]; [facility] Work Phone: 10-05-2020 11:58-0400 Body surface area Derived from formula 2.16 m2 Dalton Lozano LPN [facility]; [facility] Work Phone: 10-05-2020 11:58-0400 Body temperature 97.9 [degF] Dalton Lozano LPN [facility]; [facility] Work Phone: Comment on above: Method: Infrared 10-05-2020 11:58-0400 Body weight 93.9 kg Dalton Lzoano LPN [facility]; [facility] Work Phone: 10-05-2020 11:58-0400 Body weight 93.45 kg Dalton Lozano LPN [facility]; [facility] Work Phone: 10-05-2020 11:58-0400 Diastolic blood pressure 78 mm[Hg] Dalton Lozano LPN [facility]; [facility] Work Phone: Comment on above: Patient Position: Sitting; Cuff Location : Left Arm; Cuff Size: Standard 10-05-2020 11:58-0400 Heart rate 92 /min Dalton Lozano LPN [facility]; [facility] Work Phone: Comment on above: Pattern: Regular 10-05-2020 11:58-0400 Respiratory rate 16 /min Dalton Lozano LPN [facility]; [facility] Work Phone: Comment on above: Pattern: Unlabored 10-05-2020 11:58-0400 SaO2% (BldA) [Mass fraction] 95 % Dalton Lozano LPN [facility]; [facility] Work Phone: Comment on above: Room air 10-05-2020 11:58-0400 Systolic blood pressure 124 mm[Hg] Dalton Lozano LPN [facility]; [facility] Work Phone: Comment on above: Patient Position: Sitting; Cuff Location : Left Arm; Cuff Size: Standard 09-10-2020 11:52-0400 Body height 182.88 cm Dalton Lozano LPN [facility]; [facility] Work Phone: 09-10-2020 11:52-0400 Body mass index (BMI) [Ratio] 28.62 kg/m2 Dalton Lozano LPN [facility]; [facility] Work Phone: 09-10-2020 11:52-0400 Body mass index (BMI) [Ratio] 28.08 kg/m2 Dalton Lozano LPN [facility]; [facility] Work Phone: 09-10-2020 11:52-0400 Body surface area Derived from formula 2.18 m2 Dalton Lozano LPN [facility]; [facility] Work Phone: 09-10-2020 11:52-0400 Body surface area Derived from formula 2.16 m2 Dalton Lozano LPN [facility]; [facility] Work Phone: 09-10-2020 11:52-0400 Body temperature 97.3 [degF] Dalton Lozano LPN [facility]; [facility] Work Phone: Comment on above: Method: Infrared 09-10-2020 11:52-0400 Body weight 95.72 kg Dalton Lozano LPN [facility]; [facility] Work Phone: 09-10-2020 11:52-0400 Body weight 93.9 kg Dalton Lozano LPN [facility]; [facility] Work Phone: 09-10-2020 11:52-0400 Diastolic blood pressure 72 mm[Hg] Dalton Lozano LPN [facility]; [facility] Work Phone: Comment on above: Patient Position: Sitting; Cuff Location : Left Arm; Cuff Size: Standard 09-10-2020 11:52-0400 Heart rate 89 /min Dalton Lozano LPN [facility]; [facility] Work Phone: Comment on above: Pattern: Regular 09-10-2020 11:52-0400 Respiratory rate 17 /min Dalton Lozano LPN [facility]; [facility] Work Phone: Comment on above: Pattern: Unlabored 09-10-2020 11:52-0400 SaO2% (BldA) [Mass fraction] 94 % Dalton Lozano LPN [facility]; [facility] Work Phone: Comment on above: Room air 09-10-2020 11:52-0400 Systolic blood pressure 112 mm[Hg] Dalton Lozano LPN [facility]; [facility] Work Phone: Comment on above: Patient Position: Sitting; Cuff Location : Left Arm; Cuff Size: Standard 07-07-2020 09:37-0400 BMI (Body Mass Index) 28.62 kg/m2 Dalton Lozano LPN [facility]; [facility] Work Phone: 07-07-2020 09:37-0400 Body Temperature 97.3 [degF] Dalton Lozano LPN [facility]; [facility] Work Phone: Comment on above: Method: Infrared 07-07-2020 09:37-0400 Body weight 95.72 kg Dalton Lozano LPN [facility]; [facility] Work Phone: 07-07-2020 09:37-0400 BP Diastolic 78 mm[Hg] Dalton Lozano LPN [facility]; [facility] Work Phone: Comment on above: Patient Position: Sitting; Cuff Location : Left Arm; Cuff Size: Standard 07-07-2020 09:37-0400 BP Systolic 120 mm[Hg] Dalton Lozano LPN [facility]; [facility] Work Phone: Comment on above: Patient Position: Sitting; Cuff Location : Left Arm; Cuff Size: Standard 07-07-2020 09:37-0400 BSA (Body Surface Area) 2.18 m2 Dalton Lozano LPN [facility]; [facility] Work Phone: 07-07-2020 09:37-0400 Height 182.88 cm Dalton Lozano LPN [facility]; [facility] Work Phone: 07-07-2020 09:37-0400 Pulse (Heart Rate) 87 /min Dalton Lozano LPN [facility]; [facility] Work Phone: Comment on above: Pattern: Regular 07-07-2020 09:37-0400 Pulse Oximetry 97 % Flory Zelaya [facility]; [facility] Work Phone: Comment on above: Room air 07-07-2020 09:37-0400 Respiratory Rate 16 /min Dalton Lozano LPN [facility]; [facility] Work Phone: Comment on above: Pattern: Unlabored 07-07-2020 09:37-0400 SaO2% (BldA) [Mass fraction] 97 % Dalton Lozano LPN [facility]; [facility] Work Phone: Comment on above: Room air Encounters Encounter Date Encounter Type Care Provider Facility Start: 09-24-2024 ambulatory Lynn Arndt Facility :[facility] Start: 08-13-2024 End: 08-13-2024 ambulatory Lynn Hair Facility:[facility] Start: 06-27-2024 ambulatory Lynn Hair Facility :[facility] Start: 06-25-2024 ambulatory Lynn Hair Facility :[facility] [place] Start: 06-25-2024 End: 06-25-2024 ambulatory Lynn Arndt Facility:[facility] Start: 06-09-2022 End: 06-09-2022 Annotation/Addendum Lynn Arndt BIOPHYSICS PROFESSOR Work Phone: [facility] Start: 06-08-2022 Review Lynn Arndt BIOPHYSICS PROFESSOR Work Phone: [facility] Start: 06-02-2022 ambulatory Lynn Arndt BIOPHYSICS PROFESSOR [facility] Start: 06-02-2022 End: 06-08-2022 Office outpatient visit 15 minutes Lynn Arndt BIOPHYSICS PROFESSOR Work Phone: [facility] Start: 06-02-2022 Review Lynn Arndt BIOPHYSICS PROFESSOR Work Phone: [facility] Start: 02-01-2022 End: 02-01-2022 Annotation/Addendum Lynn Arndt BIOPHYSICS PROFESSOR Work Phone: [facility] Start: 01-30-2022 End: 02-01-2022 Office outpatient visit 25 minutes Lynn Arndt BIOPHYSICS PROFESSOR Work Phone: [facility] Start: 01-30-2022 Review Lynn Arndt BIOPHYSICS PROFESSOR Work Phone: [facility] Start: 01-17-2021 End: 01-17-2021 Office outpatient visit 25 minutes Lynn Arndt BIOPHYSICS PROFESSOR Work Phone: [facility] Start: 12-17-2020 End: 12-17-2020 Annotation/Addendum Lynn Arndt BIOPHYSICS PROFESSOR Work Phone: [facility] Start: 12-07-2020 End: 12-07-2020 Annotation/Addendum Lynn Arndt BIOPHYSICS PROFESSOR Work Phone: [facility] Start: 12-06-2020 End: 12-06-2020 Office outpatient visit 15 minutes Lynn Arndt BIOPHYSICS PROFESSOR Work Phone: [facility] Start: 11-29-2020 End: 11-29-2020 Office outpatient visit 25 minutes Lynn Arndt BIOPHYSICS PROFESSOR Work Phone: [facility] Start: 10-05-2020 End: 10-05-2020 Office outpatient visit 15 minutes Flory Romeromirta BIOPHYSICS PROFESSOR Work Phone: [facility] Start: 10-05-2020 Review Flory Romeromirta BIOPHYSICS PROFESSOR Work Phone: [facility] Start: 09-10-2020 End: 09-10-2020 Office outpatient visit 15 minutes Flory Romeromirta BIOPHYSICS PROFESSOR Work Phone: [facility] Start: 09-10-2020 Review Flory Romeromirta BIOPHYSICS PROFESSOR Work Phone: [facility] Start: 07-19-2020 End: 07-19-2020 Annotation/Addendum Flory Zelaya [facility] Start: 07-07-2020 End: 07-07-2020 Office outpatient new 45 minutes Flory Zelaya [facility] Procedures Date Procedure Procedure Detail Performing Clinician Start: 04-09-2021 End: 04-12-2021 12 Lead EKG Procedure Note: See Note; NOTES: [facility] Cardiovascular Services [address] [place] [address] 12 Lead EKG 04/09/21 1555 MR#: [id number] Acct: [id number] Name: HARITHA CAPELLAN W Rep #: [id number] : 1970 50 From: Eugenio Zavala MD Attending Dr: Status: DEP ER Ordering Dr: Oscar Figueredo MD Date: 04/09/21 Location: ED Sex: M C Admitted: Test Reason : Blood Pressure : / mmHG Vent. Rate : 081 BPM Atrial Rate : 081 BPM P-R Int : 146 ms QRS Dur : 094 ms QT Int : 372 ms P-R-T Axes : 051 073 045 degrees QTc Int : 432 ms Normal sinus rhythm Normal ECG Confirmed by VAUGHN PETE, EUGENIO ([id number]), publications editor ALEX LIU ([id number]) on 04/12/2021 9:44:27 AM Referred By: PC Confirmed By:EUGENIO ZAVALA MD 04/12/21 0944 Date Eugenio Zavala MD CC: [employer] Flory Zelaya; Dr. Oscar Figueredo MD Signed Lynn Hair [facility] Work Phone: Start: 04-09-2021 End: 04-09-2021 Emergency Department Summary Procedure Note: See Note; NOTES: [facility] Medical Records Department [address] [place] [address] Emergency Department Summary 04/09/21 MR#: [id number] Acct: [id number] Name: HARITHA CAPELLAN W Rep #: [id number] : 1970 50 From: Oscar iFgueredo MD PCP: EDITH Adler Status:REG ER Location: ED HPI History of Present Illness Chief Complaint: Suicidal Narrative Narrative: Patient's called the police. Patient arrives pink slipped. Apparently he has some guilt, he is also had some unresolved anxiety and depression, the stress of the holidays have been too much and the family has been too much she thought he would get in his car and drive into something to end his life. He has no somatic complaints. [facility] Medical History Anxiety disorder, unspecified Bipolar 1 disorder, mixed, severe Hyperlipidemia Home Medications atorvastatin 20 mg PO DAILY 12/15/20 [History Last Taken Unknown] trazodone 100 mg PO QHS 12/15/20 [History Last Taken Unknown] Allergy/AdvReac Type Severity Reaction Status Date / Time No Known Allergies Allergy Verified 04/09/21 11:27 Social History Smoking Status: Never smoker ROS ROS ED ROS Narrative Past medical history: Reviewed Medications: Reviewed Social history: Noncontributory Review of systems: All systems negative except as indicated General: No fever Eyes: No visual changes ENT: No upper airway congestion, normal voice Neck: No neck pain Cardiovascular: No chest pain Respiratory: No shortness of breath or cough Gastrointestinal: No abdominal pain, nausea vomiting or diarrhea Genitourinary: No dysuria Musculoskeletal: Denies myalgias no difficulty with ambulation Skin: No rash Neurological: No memory loss, confusion or any focal weakness Psych: As in HPI Hematologic: No easy bleeding or easy bruising EXAM Physical Exam Narrative Exam Narrative: Physical exam General: Well nourished, Well developed, No Acute Distress Head: Normocephalic, Atraumatic Eyes: Conjunctiva not pale ENT: Moist mucous membranes Neck: Supple, Nontender, No lymphadenopathy Cardiovascular: Regular rate, Regular rhythm Respiratory: No distress, CTA bilaterally Abdomen: Soft, Nontender, Nondistended Back: Nontender, Normal Inspection. Negative for: CVA tenderness Extremities: Nontender, No edema Skin: Normal color, No rash Neurological: Alert, Normal Strength, Normal Sensation Psychological: Flat affect he avoids eye contact he is forthcoming with most things except now he is tell me that he got in his car just to get away from people and not to hurt himself. Const Vital Signs: 04/09/21 11:24 Temperature 97.6 F L Temperature Source Temporal Pulse Rate 84 Respiratory Rate 15 Blood Pressure 144/94 H Blood Pressure Mean 110 Pulse Ox 97 Oxygen Delivery Method Room Air MDM MDM MDM Narrative Medical decision making narrative: Patient will be medically cleared. I do believe he is high risk and will need to be placed. Lab Data Labs: Laboratory Results - last 24 hr 04/09/21 04/09/21 04/09/21 11:57 11:57 11:57 WBC 5.5 RBC 5.08 Hgb 15.3 Hct 45.5 MCV 89.6 MCH 30.1 MCHC 33.6 RDW Std Deviation 41.3 RDW Coeff of Norman 12.5 Plt Count 253 MPV 9.9 Immature Gran % (Auto) 0.200 Neut % (Auto) 72.8 H Lymph % (Auto) 17.9 L Amite % (Auto) 7.7 Eos % (Auto) 0.7 Baso % (Auto) 0.7 Absolute Neuts (auto) 4.0 Absolute Lymphs (auto) 0.98 Nucleated RBC % 0 Sodium 138 Potassium 4.2 Chloride 106 Carbon Dioxide 28.0 Anion Gap 4 L BUN 15 Creatinine 1.06 Estim Creat Clear Calc 90.49 Est GFR (MDRD) Af Amer 95 Est GFR (MDRD) Non-Af 78 BUN/Creatinine Ratio 14.2 Glucose 111 H Calcium 9.6 Urine Opiates Screen Urine Methadone Screen Ur Barbiturates Screen Ur Phencyclidine Scrn Ur Amphetamines Screen U Methamphetamin-MDMA U Benzodiazepines Scrn Urine Cocaine Screen U Cannabinoids Screen Ur Drug Screen Comment Ethyl Alcohol < 3.0 04/09/21 12:05 WBC RBC Hgb Hct MCV MCH MCHC RDW Std Deviation RDW Coeff of Norman Plt Count MPV Immature Gran % (Auto) Neut % (Auto) Lymph % (Auto) Amite % (Auto) Eos % (Auto) Baso % (Auto) Absolute Neuts (auto) Absolute Lymphs (auto) Nucleated RBC % Sodium Potassium Chloride Carbon Dioxide Anion Gap BUN Creatinine Estim Creat Clear Calc Est GFR (MDRD) Af Amer Est GFR (MDRD) Non-Af BUN/Creatinine Ratio Glucose Calcium Urine Opiates Screen NEGATIVE Urine Methadone Screen NEGATIVE Ur Barbiturates Screen NEGATIVE Ur Phencyclidine Scrn NEGATIVE Ur Amphetamines Screen NEGATIVE U Methamphetamin-MDMA NEGATIVE U Benzodiazepines Scrn NEGATIVE Urine Cocaine Screen NEGATIVE U Cannabinoids Screen NEGATIVE Ur Drug Screen Comment Ethyl Alcohol Discharge Plan Triage Chief Complaint: Suicidal ED Provider: Oscar Figueredo Dx/Rx/DC Orders Clinical Impression: Depression with suicidal ideation Prescriptions: No Action atorvastatin 40 mg Tablet 20 mg PO DAILY RF: 0 trazodone 50 mg Tablet 100 mg PO QHS RF: 0 Primary Care Provider: Flory Zelaya NP Referrals: Flory Zelaya NP, [employer] [Primary Care Provider] - Disposition Disposition: Psychiatric Hospital or Unit What to do if you have Problems For any increased pain, shortness of breath, bleeding, nausea or vomiting, chest pain, or any unexpected problems, contact your Primary Care Provider. Call [facility] ([phone]) or report to the closest Emergency Room. Call 911 if necessary. 04/09/21 1246 <Electronically signed by Oscar Figueredo MD> Cosigner Signature (if applicable): CC: [employer] Flory Zelaya Signed Lynn Arndt [facility] Work Phone: Start: 12-17-2020 End: 12-17-2020 Brain/Head W/WO Contrast Procedure Note: See Note; NOTES: [facility] Imaging Services [address] [place] [address] Brain/Head W/WO Contrast MR#: [id number] Acct: [id number] Name: HARITHA CAPELLAN Rep #: [id number] : 1970 M 50 From: Abhinav Martinez MD PCP: EDITH Adler Status: REG CLI Study: Brain/Head W/WO Contrast Date of Exam: 1 Exam# [id number] Ordering Dr: Flory Zelaya NP [employer] INDICATION: DICKEY EXAMINATION: CT BRAIN WITH AND WITHOUT CONTRAST - CT Head or Brain WO/W Contrast Injection TECHNIQUE: Multiple axial images were obtained of the brain with and without IV contrast. A radiation dose optimization technique was used for this scan. IV Contrast dosage and agent: 50 mL of [id number]. Radiation CTD: 44.99 Radiation DLP: 1596.72 COMPARISON: None. FINDINGS: BRAIN PARENCHYMA: The hanna-white matter differentiation is unremarkable, no evidence of prominent acute territorial infarct is seen. Subtle scattered areas of low attenuation visualized in the periventricular white matter that could represent could represent mild white matter changes. No evidence of parenchymal hemorrhages or contusions. No evidence of intra or extra-axial fluid collection is seen. No evidence of intracranial mass or mass effect, no evidence of midline shift is seen. The ventricles and sulci are unremarkable in size. No evidence of structural midline brain abnormality is seen. Low-lying cerebellar tonsils visualized but no evidence of tonsillar herniation is seen. No intracranial area of abnormal enhancement after contrast administration. Limited evaluation of the intracranial vessels demonstrates no prominent pathology. Limited evaluation of the intracranial venous sinuses is unremarkable, the superior sagittal sinus drains mainly into the right transverse sinus. The globes are unremarkable bilaterally, no evidence of stranding of the orbital fat planes. Mild circumferential mucosal thickening visualized in the ethmoid air cells otherwise unremarkable aeration of the paranasal sinuses and the mastoid air cells. The skull bones are otherwise unremarkable. CT/Brain/Head W/WO Contrast IMPRESSION: Unremarkable CT Brain with and without contrast. Electronically Signed: Abhinav Martinez MD at 16:23 EDT Tel , Service support , CC: EDITH Zelaya Puddler Helper: Signed Flory Zelaya Work Phone: Start: 11-29-2020 End: 11-29-2020 Emergency Department Summary Procedure Note: See Note; NOTES: [facility] Medical Records Department [address] [place] [address] Emergency Department Summary 11/29/20 MR#: [id number] Acct: [id number] Name: HARITHA CAPELLAN Rep #: [id number] : 1970 50 From: Josy Lovell MD PCP: EDITH Adler Status:[facility] ER Location: ED HPI History of Present Illness Chief Complaint: Suicidal Informant: patient and spouse/S.O. Narrative Narrative: 50-year-old male presenting from primary care physician's office due to anxiety, depression, and suicidal thoughts. Patient recently quit his job. He is under a lot of stress. states he has been having delusions and difficulty determining what is real and what is not. He has had these symptoms in the past with stress. He has had intermittent suicidal thoughts. He denies specific suicide plan. Denies hallucinations. Denies drug use. Prior similar symptoms: Yes Recent Illness/Hospitalization: No PFSH PFSH Medical History (Updated 11/29/20 @ 13:[address] Josy Lovell MD) Anxiety Depression Hyperlipemia Social History Smoking Status: Never smoker ROS ROS ED Constitutional Constitutional ED: Denies fever(s) Eyes Eyes: Denies change in vision ENT ENT ED: Denies rhinorrhea or sore throat Cardiovascular Cardiovascular: Denies chest pain or palpitations Respiratory/Chest Respiratory/Chest: Denies cough or dyspnea Gastrointestinal Gastrointestinal: Denies abdominal pain, diarrhea, nausea or vomiting Musculoskeletal Musculoskeletal: Denies myalgias Integumentary Denies rash Neurologic Neurologic: Denies headache(s) Psychiatric Psychiatric: Reports anxiety and depression EXAM Physical Exam Const Vital Signs: 11/29/20 12:04 Temperature 96.7 F L Temperature Source Temporal Pulse Rate 70 Respiratory Rate 20 H Blood Pressure 152/95 H Blood Pressure Mean 114 MDM MDM MDM Narrative Medical decision making narrative: CBC, chemistries are unremarkable. Alcohol is negative. Covid is negative. Patient was seen by the social work in the emergency department. It is felt patient is safe for discharge home. Family is in agreement. He signed a safety plan. He was set up for intensive outpatient treatment and has an appointment tomorrow morning. Patient and family are agreeable with this plan. He denies suicidal plan at this time. Advised return to the ED for any worsening complaints. Lab Data Attestation: I reviewed the patient's lab results. Labs: Laboratory Results - last 24 hr 11/29/20 11/29/20 11/29/20 12:44 12:44 12:44 WBC 6.0 RBC 5.39 Hgb 16.5 Hct 49.4 MCV 91.7 MCH 30.6 MCHC 33.4 RDW Std Deviation 45.0 H RDW Coeff of Norman 13.2 Plt Count 260 MPV 9.9 Immature Gran % (Auto) 0.300 Neut % (Auto) 64.4 Lymph % (Auto) 24.1 [place] % (Auto) 10.0 Eos % (Auto) 0.5 Baso % (Auto) 0.7 Absolute Neuts (auto) 3.9 Absolute Lymphs (auto) 1.45 Nucleated RBC % 0 Sodium 138 Potassium 3.9 Chloride 103 Carbon Dioxide 30.0 Anion Gap 5 BUN 10 Creatinine 0.97 Estim Creat Clear Calc 101.82 Est GFR (MDRD) Af Amer 105 Est GFR (MDRD) Non-Af 87 BUN/Creatinine Ratio 10.3 Glucose 105 Calcium 9.5 Ethyl Alcohol < 3.0 Discharge Plan Triage Chief Complaint: Suicidal ED Provider: Josy Lovell Dx/Rx/DC Orders Clinical Impression: Depression, Anxiety Instructions: CONTRACT, No Harm, ED Depression Primary Care Provider: Flory Zelaya NP Referrals: Flory Zelaya NP, [employer] [Primary Care Provider] - Disposition Disposition: Home, Self Care What to do if you have Problems For any increased pain, shortness of breath, bleeding, nausea or vomiting, chest pain, or any unexpected problems, contact your Primary Care Provider. Call [facility] ([phone]) or report to the closest Emergency Room. Call 911 if necessary. 11/29/20 7926 <Electronically signed by Josy Lovell MD> Cosigner Signature (if applicable): CC: [employer] Flory Zelaya Signed Lynn Hair [facility] Work Phone: Start: 09-10-2020 End: 09-10-2020 Chest PA and Lateral Comments: See Note; NOTES: [facility] [address] [place] [address] Chest PA and Lateral MR#: [id number] Acct: [id number] Name: HARTIHA CAPELLAN Rep #: [id number] : 1970 M 50 From: Jacques gutierrez MD PCP: EDITH Adler Status: DEP AMB Study: Chest PA and Lateral Date of Exam: 09/10/20 Exam# [id number] Ordering Dr: Flory Zelaya NP [employer] STUDY: X-RAY CHEST REASON FOR EXAM: Male, 50 years old. BRONCHITIS - TECHNIQUE: PA and lateral views of the chest. COMPARISON: None. FINDINGS: Mild degree of increased markings in the right middle lobe. Follow-up is recommended. There is no demonstrated pleural abnormality. Normal size heart. Normal mediastinum and josafat. Normal visualized pulmonary arteries. Normal visualized aortic arch and descending thoracic aorta. Normal visualized thoracic spine. Normal visualized ribs, clavicles, and shoulders. There is no demonstrated abnormality of the visualized soft tissue structures of the upper abdomen. RAD/Chest PA and Lateral IMPRESSION: Increased markings are seen in the right middle lobe. Follow-up is recommended. Electronically Signed: Jacques Muhammad MD at 14:31 EDT , Service support , CC: EDITH Zelaya Puddler Helper: Signed Flory Zelaya BIOPHYSICS PROFESSOR Work Phone: Start: 08-06-2020 End: 08-06-2020 Pulmonary Function Test Comments: See Note; NOTES: [facility] [address] [place] [address] MR#: [id number] Acct: [id number] Name: HARITHA CAPELLAN Rep #: [id number] : 1970 50 From: Simone England DO Referring Dr: Flory Zelaya NP Status: REG CL I Location: [facility] Date: 08/05/20 Sex: M C INTRODUCTION: The patient is a 50-year-old male that presents for pulmonary function studies secondary to a diagnosis of dyspnea on exertion. Respiratory therapy reports good patient effort. Bronchodilators were used during testing. INTERPRETATION: Forced expiration spirometry demonstrates no evidence of a large airways obstructive ventilatory defect. There was no significant response to aerosolized bronchodilators. Spirograms are of good quality and plateau normally. The respiratory flow volume loop is normal. Body plethysmography was performed and reveals lung volumes to be within normal limits. Diffusing capacity by single breath CO is also within normal limits. IMPRESSION: Grossly normal pulmonary function studies. 08/06/20 1254 <Electronically signed by Simone England DO> Date Simone England DO CC: [employer] Flory Zelaya Date Dictated: 08/06/20 1253 Date Transcribed: 08/06/201252 Puddler Helper: DB Signed Flory Zelaya BIOPHYSICS PROFESSOR Work Phone: Appendectomy Dalton Lozano Comment on above: 1987 Appendectomy Dalton Lozano LP N Comment on above: 1987 Appendectomy Dalton Lozano LP N Comment on above: 1987 Appendectomy Clarisa Slarb LP N Comment on above: 1987 Appendectomy Clarisa Slarb LP N Comment on above: 1987 Appendectomy Clarisa Slarb LP N Comment on above: 1987 Back surgery Dalton Lozano Comment on above: 2006 Back surgery Dalton Lozano LP N Comment on above: 2006 Back surgery Dalton Lozano LP N Comment on above: 2006 Back surgery Clarisa Slarb LP N Comment on above: 2006 Back surgery Clarisa Slarb LP N Comment on above: 2006 Back surgery Clarisa Slarb LP N Comment on above: 2006 Hemorrhoidectomy Dalton Sami s Comment on above: 2007? Hemorrhoidectomy Dalton Faisal s INFORMATION STRATEGIST Comment on above: 2007? Hemorrhoidectomy Dalton Faisal s INFORMATION STRATEGIST Comment on above: 2007? Hemorrhoidectomy Clarisa Slar b INFORMATION STRATEGIST Comment on above: 2007? Hemorrhoidectomy Clarisa Slar b INFORMATION STRATEGIST Comment on above: 2007? Hemorrhoidectomy Clarisa Slar b INFORMATION STRATEGIST Comment on above: 2007? Plan of Treatment Date Care Activity Detail Author Start: 06-02-2022 Procedure Education Eprescribed prescriptions (G8553) [facility] Work Phone: Start: 06-02-2022 Provider Instructions for Treatment Follow up in 6 months [facility] Work Phone: Start: 01-30-2022 Procedure Education Eprescribed prescriptions (G8553) [facility] Work Phone: Start: 10-17-2022 Provider Instructions for Treatment Follow up in 4 months [facility] Work Phone: Start: 01-30-2022 Lipid panel LIPID PANEL (35955) [facility] Work Phone: Start: 01-30-2022 Assay of prostate specific antigen total PSA (PROSTATE SPECIFIC ANTIGEN) (47864) [facility] Work Phone: Start: 01-17-2021 Procedure Education Eprescribed prescriptions (G8553) [facility] Work Phone: Start: 01-17-2021 Provider Instructions for Treatment [facility] Work Phone: Start: 12-06-2020 Procedure Education Eprescribed prescriptions (G8553) [facility] Work Phone: Start: 12-06-2020 Provider Instructions for Treatment Follow up in 6 weeks [facility] Work Phone: Start: 11-29-2020 Procedure Education Eprescribed prescriptions (G8553) [facility] Work Phone: Start: 11-29-2020 Provider Instructions for Treatment [facility] Work Phone: Start: 10-05-2020 Procedure Education Eprescribed prescriptions (G8553) [facility] Work Phone: Start: 09-15-2020 Lipid panel LIPID PANEL (61681) [facility] Work Phone: Start: 09-10-2020 Procedure Education Eprescribed prescriptions (G8553) [facility] Work Phone: Start: 09-10-2020 Provider Instructions for Treatment [facility] Work Phone: Start: 07-07-2020 Procedure Education Eprescribed prescriptions (G8553) [facility] Work Phone: Start: 07-07-2020 Provider Instructions for Treatment [facility] Work Phone: [facility] Work Phone: [facility] Work Phone: [facility] Work Phone: [facility] Work Phone: [facility] Work Phone: [facility] Work Phone: Payers Date Payer Category Payer Self-pay 2020 Private Health Insurance [id number] 1970 Unknown [id number] Private Health Insurance [id number] Unknown Unknown [id number] [id number] [id number] Unknown [id number] [id number] Unknown [id number] [id number] Unknown [id number] [id number] Unknown [id number] [id number] [id number] Social History Date Type Detail Facility Alcohol Use: [facility] Use: [facility] Work Phone: Caffeine Use Caffeine Use [facility] Work Phone: Comment on above: 2-3 cups/ day Alcohol Use: Alcohol Use: [facility] Work Phone: Clinical Notes 01-17-2021 Note Date & Type Note Facility 01-17-2021 Instructions Name Patient Instructions Start:17-Jan-2021 Instruction Type:Provider Instructions for Treatment How to Access Health Information Online using Patient Portal and 3rd [employer] Apps Start:17-Jan-2021 Instruction Type:Patient Education Patient Instructions Indication:BMI 27.0-27.9,adult Start: Instruction Type:Provider Instructions for Treatment How to Access Health Information Online using Patient Portal and [employer]rd [employer] Apps Indication:BMI 27.0-27.9,adult Start: 1 Instruction Type:Patient Education Patient Instructions Indication:BMI 27.0-27.9,adult Start: Instruction Type:Provider Instructions for Treatment How to Access Health Information Online using Patient Portal and [employer]rd [employer] Apps Indication:BMI 27.0-27.9,adult Start: 1 Instruction Type:Patient Education Patient Instructions Start: Instruction Type:Provider Instructions for Treatment How to Access Health Information Online using Patient Portal and [employer]rd [employer] Apps Start: Instruction Type:Patient Education Patient Instructions Start: Instruction Type:Provider Instructions for Treatment How to Access Health Information Online using Patient Portal and [employer]rd [employer] Apps Start: Instruction Type:Patient Education Patient Instructions Indication:BMI 28.0-28.9,adult Start: Instruction Type:Provider Instructions for Treatment How to Access Health Information Online using Patient Portal and [employer]rd [employer] Apps Indication:BMI 28.0-28.9,adult Start: Instruction Type:Patient Education [facility]; [facility] Work Phone: instructions* Name Dates Details Patient Instructions Indication:Nonsmoker Start:10-Sep-2020 Instruction Type:Provider Instructions for Treatment How to Access Health Informa tion Online using Patient Portal and [employer]rd [employer] Apps Indication:Nonsmoker Start:10-Sep-2020 Instruction Type:Patient Education Patient Instructions Indication:BMI 28.0-28.9,adult Start:07-Jul-2020 Instruction Type:Provider Instructions for Treatment How to Access Health Informa tion Online using Patient Portal and 3rd [employer] Apps Indication:BMI 28.0-28.9,adult Start:07-Jul-2020 Instruction Type:Patient Education [facility]; [facility] Work Phone: instructions* Name Dates Details Patient Instructions Indication:Nonsmoker Start:05-Oct-2020 Instruction Type:Provider Instructions for Treatment How to Access Health Informa tion Online using Patient Portal and 3rd [employer] Apps Indication:Nonsmoker Start:05-Oct-2020 Instruction Type:Patient Education Patient Instructions Indication:Nonsmoker Start:10-Sep-2020 Instruction Type:Provider Instructions for Treatment How to Access Health Informa tion Online using Patient Portal and [employer] Apps Indication:Nonsmoker Start:10-Sep-2020 Instruction Type:Patient Education Patient Instructions Indication:BMI 28.0-28.9,adult Start:07-Jul-2020 Instruction Type:Provider Instructions for Treatment How to Access Health Informa tion Online using Patient Portal and [employer] Apps Indication:BMI 28.0-28.9,adult Start:07-Jul-2020 Instruction Type:Patient Education [facility]; [facility] Work Phone: instructions* Name Dates Details Patient Instructions Indication:Nonsmoker Start:05-Oct-2020 Instruction Type:Provider Instructions for Treatment How to Access Health Informa tion Online using Patient Portal and [employer] Apps Indication:Nonsmoker Start:05-Oct-2020 Instruction Type:Patient Education Patient Instructions Indication:Nonsmoker Start:10-Sep-2020 Instruction Type:Provider Instructions for Treatment How to Access Health Informa tion Online using Patient Portal and [employer] Apps Indication:Nonsmoker Start:10-Sep-2020 Instruction Type:Patient Education Patient Instructions Indication:BMI 28.0-28.9,adult Start:07-Jul-2020 Instruction Type:Provider Instructions for Treatment How to Access Health Informa tion Online using Patient Portal and [employer] Apps Indication:BMI 28.0-28.9,adult Start:07-Jul-2020 Instruction Type:Patient Education [facility]; [facility] Work Phone: Instructions* Name Dates Details How to Access Health Informa tion Online using Patient Portal and [employer] Apps Indication:Nonsmoker Start:30-Jan-2022 Instruction Type:Patient Education Patient Instructions Indication:Nonsmoker Start:30-Jan-2022 Instruction Type:Provider Instructions for Treatment Patient Instructions Indication:Nonsmoker Start:17-Jan-2021 Instruction Type:Provider Instructions for Treatment How to Access Health Informa tion Online using Patient Portal and [employer]rd [employer] Apps Indication:Nonsmoker Start:17-Jan-2021 Instruction Type:Patient Education Patient Instructions Indication:BMI 27.0-27.9,adult Start:06-Dec-2020 Instruction Type:Provider Instructions for Treatment How to Access Health Informa tion Online using Patient Portal and [employer]rd [employer] Apps Indication:BMI 27.0-27.9,adult Start:06-Dec-2020 Instruction Type:Patient Education Patient Instructions Indication:BMI 27.0-27.9,adult Start:29-Nov-2020 Instruction Type:Provider Instructions for Treatment How to Access Health Informa tion Online using Patient Portal and [employer]rd [employer] Apps Indication:BMI 27.0-27.9,adult Start:29-Nov-2020 Instruction Type:Patient Education Patient Instructions Indication:Nonsmoker Start:05-Oct-2020 Instruction Type:Provider Instructions for Treatment How to Access Health Informa tion Online using Patient Portal and [employer]rd [employer] Apps Indication:Nonsmoker Start:05-Oct-2020 Instruction Type:Patient Education Patient Instructions Indication:Nonsmoker Start:10-Sep-2020 Instruction Type:Provider Instructions for Treatment How to Access Health Informa tion Online using Patient Portal and 3rd [employer] Apps Indication:Nonsmoker Start:10-Sep-2020 Instruction Type:Patient Education Patient Instructions Indication:BMI 28.0-28.9,adult Start:07-Jul-2020 Instruction Type:Provider Instructions for Treatment How to Access Health Informa tion Online using Patient Portal and 3rd [employer] Apps Indication:BMI 28.0-28.9,adult Start:07-Jul-2020 Instruction Type:Patient Education [facility]; [facility] Work Phone: Instructions* Name Dates Details How to Access Health Informa tion Online using Patient Portal and 3rd [employer] Apps Indication:Nonsmoker Start:30-Jan-2022 Instruction Type:Patient Education Patient Instructions Indication:Nonsmoker Start:30-Jan-2022 Instruction Type:Provider Instructions for Treatment Patient Instructions Indication:Nonsmoker Start:17-Jan-2021 Instruction Type:Provider Instructions for Treatment How to Access Health Informa tion Online using Patient Portal and 3rd [employer] Apps Indication:Nonsmoker Start:17-Jan-2021 Instruction Type:Patient Education Patient Instructions Indication:BMI 27.0-27.9,adult Start:06-Dec-2020 Instruction Type:Provider Instructions for Treatment How to Access Health Informa tion Online using Patient Portal and 3rd [employer] Apps Indication:BMI 27.0-27.9,adult Start:06-Dec-2020 Instruction Type:Patient Education Patient Instructions Indication:BMI 27.0-27.9,adult Start:29-Nov-2020 Instruction Type:Provider Instructions for Treatment How to Access Health Informa tion Online using Patient Portal and 3rd [employer] Apps Indication:BMI 27.0-27.9,adult Start:29-Nov-2020 Instruction Type:Patient Education Patient Instructions Indication:Nonsmoker Start:05-Oct-2020 Instruction Type:Provider Instructions for Treatment How to Access Health Informa tion Online using Patient Portal and [employer]rd [employer] Apps Indication:Nonsmoker Start:05-Oct-2020 Instruction Type:Patient Education Patient Instructions Indication:Nonsmoker Start:10-Sep-2020 Instruction Type:Provider Instructions for Treatment How to Access Health Informa tion Online using Patient Portal and [employer] Apps Indication:Nonsmoker Start:10-Sep-2020 Instruction Type:Patient Education Patient Instructions Indication:BMI 28.0-28.9,adult Start:07-Jul-2020 Instruction Type:Provider Instructions for Treatment How to Access Health Informa tion Online using Patient Portal and [employer]rd [employer] Apps Indication:BMI 28.0-28.9,adult Start:07-Jul-2020 Instruction Type:Patient Education [facility]; [facility] Work Phone: Instructions* Name Dates Details How to Access Health Informa tion Online using Patient Portal and [employer]rd [employer] Apps Indication:Nonsmoker Start:30-Jan-2022 Instruction Type:Patient Education Patient Instructions Indication:Nonsmoker Start:30-Jan-2022 Instruction Type:Provider Instructions for Treatment Patient Instructions Indication:Nonsmoker Start:17-Jan-2021 Instruction Type:Provider Instructions for Treatment How to Access Health Informa tion Online using Patient Portal and [employer]rd [employer] Apps Indication:Nonsmoker Start:17-Jan-2021 Instruction Type:Patient Education Patient Instructions Indication:BMI 27.0-27.9,adult Start:06-Dec-2020 Instruction Type:Provider Instructions for Treatment How to Access Health Informa tion Online using Patient Portal and [employer]rd [employer] Apps Indication:BMI 27.0-27.9,adult Start:06-Dec-2020 Instruction Type:Patient Education Patient Instructions Indication:BMI 27.0-27.9,adult Start:29-Nov-2020 Instruction Type:Provider Instructions for Treatment How to Access Health Informa tion Online using Patient Portal and [employer]rd [employer] Apps Indication:BMI 27.0-27.9,adult Start:29-Nov-2020 Instruction Type:Patient Education Patient Instructions Indication:Nonsmoker Start:05-Oct-2020 Instruction Type:Provider Instructions for Treatment How to Access Health Informa tion Online using Patient Portal and [employer] Apps Indication:Nonsmoker Start:05-Oct-2020 Instruction Type:Patient Education Patient Instructions Indication:Nonsmoker Start:10-Sep-2020 Instruction Type:Provider Instructions for Treatment How to Access Health Informa tion Online using Patient Portal and [employer] Apps Indication:Nonsmoker Start:10-Sep-2020 Instruction Type:Patient Education Patient Instructions Indication:BMI 28.0-28.9,adult Start:07-Jul-2020 Instruction Type:Provider Instructions for Treatment How to Access Health Informa tion Online using Patient Portal and [employer] Apps Indication:BMI 28.0-28.9,adult Start:07-Jul-2020 Instruction Type:Patient Education [facility] Work Phone: Instructions* Name Dates Details How to Access Health Informa tion Online using Patient Portal and [employer] Apps Indication:Nonsmoker Start:30-Jan-2022 Instruction Type:Patient Education Patient Instructions Indication:Nonsmoker Start:30-Jan-2022 Instruction Type:Provider Instructions for Treatment Patient Instructions Indication:Nonsmoker Start:17-Jan-2021 Instruction Type:Provider Instructions for Treatment How to Access Health Informa tion Online using Patient Portal and [employer] Apps Indication:Nonsmoker Start:17-Jan-2021 Instruction Type:Patient Education Patient Instructions Indication:BMI 27.0-27.9,adult Start:06-Dec-2020 Instruction Type:Provider Instructions for Treatment How to Access Health Informa tion Online using Patient Portal and [employer] Apps Indication:BMI 27.0-27.9,adult Start:06-Dec-2020 Instruction Type:Patient Education Patient Instructions Indication:BMI 27.0-27.9,adult Start:29-Nov-2020 Instruction Type:Provider Instructions for Treatment How to Access Health Informa tion Online using Patient Portal and [employer] Apps Indication:BMI 27.0-27.9,adult Start:29-Nov-2020 Instruction Type:Patient Education Patient Instructions Indication:Nonsmoker Start:05-Oct-2020 Instruction Type:Provider Instructions for Treatment How to Access Health Informa tion Online using Patient Portal and [employer] Apps Indication:Nonsmoker Start:05-Oct-2020 Instruction Type:Patient Education Patient Instructions Indication:Nonsmoker Start:10-Sep-2020 Instruction Type:Provider Instructions for Treatment How to Access Health Informa tion Online using Patient Portal and [employer] Apps Indication:Nonsmoker Start:10-Sep-2020 Instruction Type:Patient Education Patient Instructions Indication:BMI 28.0-28.9,adult Start:07-Jul-2020 Instruction Type:Provider Instructions for Treatment How to Access Health Informa tion Online using Patient Portal and [employer] Apps Indication:BMI 28.0-28.9,adult Start:07-Jul-2020 Instruction Type:Patient Education [facility]; [facility] Work Phone: Instructions* Name Dates Details Patient Instructions Indication:BMI 29.0-29.9,adult Start:02-Jun-2022 Instruction Type:Provider Instructions for Treatment How to Access Health Informa tion Online using Patient Portal and [employer]rd [employer] Apps Indication:BMI 29.0-29.9,adult Start:02-Jun-2022 Instruction Type:Patient Education How to Access Health Informa tion Online using Patient Portal and [employer]rd [employer] Apps Indication:Nonsmoker Start:30-Jan-2022 Instruction Type:Patient Education Patient Instructions Indication:Nonsmoker Start:30-Jan-2022 Instruction Type:Provider Instructions for Treatment Patient Instructions Indication:Nonsmoker Start:17-Jan-2021 Instruction Type:Provider Instructions for Treatment How to Access Health Informa tion Online using Patient Portal and [employer]rd [employer] Apps Indication:Nonsmoker Start:17-Jan-2021 Instruction Type:Patient Education Patient Instructions Indication:BMI 27.0-27.9,adult Start:06-Dec-2020 Instruction Type:Provider Instructions for Treatment How to Access Health Informa tion Online using Patient Portal and [employer]rd [employer] Apps Indication:BMI 27.0-27.9,adult Start:06-Dec-2020 Instruction Type:Patient Education Patient Instructions Indication:BMI 27.0-27.9,adult Start:29-Nov-2020 Instruction Type:Provider Instructions for Treatment How to Access Health Informa tion Online using Patient Portal and [employer]rd [employer] Apps Indication:BMI 27.0-27.9,adult Start:29-Nov-2020 Instruction Type:Patient Education Patient Instructions Indication:Nonsmoker Start:05-Oct-2020 Instruction Type:Provider Instructions for Treatment How to Access Health Informa tion Online using Patient Portal and [employer]rd [employer] Apps Indication:Nonsmoker Start:05-Oct-2020 Instruction Type:Patient Education Patient Instructions Indication:Nonsmoker Start:10-Sep-2020 Instruction Type:Provider Instructions for Treatment How to Access Health Informa tion Online using Patient Portal and [employer]rd [employer] Apps Indication:Nonsmoker Start:10-Sep-2020 Instruction Type:Patient Education Patient Instructions Indication:BMI 28.0-28.9,adult Start:07-Jul-2020 Instruction Type:Provider Instructions for Treatment How to Access Health Informa tion Online using Patient Portal and [employer]rd [employer] Apps Indication:BMI 28.0-28.9,adult Start:07-Jul-2020 Instruction Type:Patient Education [facility] Work Phone: Instructions* Name Dates Details Patient Instructions Indication:BMI 29.0-29.9,adult Start:02-Jun-2022 Instruction Type:Provider Instructions for Treatment How to Access Health Informa tion Online using Patient Portal and [employer]rd [employer] Apps Indication:BMI 29.0-29.9,adult Start:02-Jun-2022 Instruction Type:Patient Education How to Access Health Informa tion Online using Patient Portal and [employer]rd [employer] Apps Indication:Nonsmoker Start:30-Jan-2022 Instruction Type:Patient Education Patient Instructions Indication:Nonsmoker Start:30-Jan-2022 Instruction Type:Provider Instructions for Treatment Patient Instructions Indication:Nonsmoker Start:17-Jan-2021 Instruction Type:Provider Instructions for Treatment How to Access Health Informa tion Online using Patient Portal and [employer]rd [employer] Apps Indication:Nonsmoker Start:17-Jan-2021 Instruction Type:Patient Education Patient Instructions Indication:BMI 27.0-27.9,adult Start:06-Dec-2020 Instruction Type:Provider Instructions for Treatment How to Access Health Informa tion Online using Patient Portal and [employer]rd [employer] Apps Indication:BMI 27.0-27.9,adult Start:06-Dec-2020 Instruction Type:Patient Education Patient Instructions Indication:BMI 27.0-27.9,adult Start:29-Nov-2020 Instruction Type:Provider Instructions for Treatment How to Access Health Informa tion Online using Patient Portal and [employer]rd [employer] Apps Indication:BMI 27.0-27.9,adult Start:29-Nov-2020 Instruction Type:Patient Education Patient Instructions Indication:Nonsmoker Start:05-Oct-2020 Instruction Type:Provider Instructions for Treatment How to Access Health Informa tion Online using Patient Portal and [employer]rd [employer] Apps Indication:Nonsmoker Start:05-Oct-2020 Instruction Type:Patient Education Patient Instructions Indication:Nonsmoker Start:10-Sep-2020 Instruction Type:Provider Instructions for Treatment How to Access Health Informa tion Online using Patient Portal and [employer]rd [employer] Apps Indication:Nonsmoker Start:10-Sep-2020 Instruction Type:Patient Education Patient Instructions Indication:BMI 28.0-28.9,adult Start:07-Jul-2020 Instruction Type:Provider Instructions for Treatment How to Access Health Informa tion Online using Patient Portal and [employer]rd [employer] Apps Indication:BMI 28.0-28.9,adult Start:07-Jul-2020 Instruction Type:Patient Education [facility]; [facility] Work Phone: Instructions* Name Dates Details Patient Instructions Indication:BMI 29.0-29.9,adult Start:02-Jun-2022 Instruction Type:Provider Instructions for Treatment How to Access Health Informa tion Online using Patient Portal and [employer]rd [employer] Apps Indication:BMI 29.0-29.9,adult Start:02-Jun-2022 Instruction Type:Patient Education How to Access Health Informa tion Online using Patient Portal and [employer]rd [employer] Apps Indication:Nonsmoker Start:30-Jan-2022 Instruction Type:Patient Education Patient Instructions Indication:Nonsmoker Start:30-Jan-2022 Instruction Type:Provider Instructions for Treatment Patient Instructions Indication:Nonsmoker Start:17-Jan-2021 Instruction Type:Provider Instructions for Treatment How to Access Health Informa tion Online using Patient Portal and [employer]rd [employer] Apps Indication:Nonsmoker Start:17-Jan-2021 Instruction Type:Patient Education Patient Instructions Indication:BMI 27.0-27.9,adult Start:06-Dec-2020 Instruction Type:Provider Instructions for Treatment How to Access Health Informa tion Online using Patient Portal and [employer]rd [employer] Apps Indication:BMI 27.0-27.9,adult Start:06-Dec-2020 Instruction Type:Patient Education Patient Instructions Indication:BMI 27.0-27.9,adult Start:29-Nov-2020 Instruction Type:Provider Instructions for Treatment How to Access Health Informa tion Online using Patient Portal and [employer]rd [employer] Apps Indication:BMI 27.0-27.9,adult Start:29-Nov-2020 Instruction Type:Patient Education Patient Instructions Indication:Nonsmoker Start:05-Oct-2020 Instruction Type:Provider Instructions for Treatment How to Access Health Informa tion Online using Patient Portal and [employer]rd [employer] Apps Indication:Nonsmoker Start:05-Oct-2020 Instruction Type:Patient Education Patient Instructions Indication:Nonsmoker Start:10-Sep-2020 Instruction Type:Provider Instructions for Treatment How to Access Health Informa tion Online using Patient Portal and [employer]rd [employer] Apps Indication:Nonsmoker Start:10-Sep-2020 Instruction Type:Patient Education Patient Instructions Indication:BMI 28.0-28.9,adult Start:07-Jul-2020 Instruction Type:Provider Instructions for Treatment How to Access Health Informa tion Online using Patient Portal and [employer]rd [employer] Apps Indication:BMI 28.0-28.9,adult Start:07-Jul-2020 Instruction Type:Patient Education [facility]; [facility] Work Phone: Instructions* Name Dates Details Patient Instructions Indication:BMI 29.0-29.9,adult Start:02-Jun-2022 Instruction Type:Provider Instructions for Treatment How to Access Health Informa tion Online using Patient Portal and [employer]rd [employer] Apps Indication:BMI 29.0-29.9,adult Start:02-Jun-2022 Instruction Type:Patient Education How to Access Health Informa tion Online using Patient Portal and [employer]rd [employer] Apps Indication:Nonsmoker Start:30-Jan-2022 Instruction Type:Patient Education Patient Instructions Indication:Nonsmoker Start:30-Jan-2022 Instruction Type:Provider Instructions for Treatment Patient Instructions Indication:Nonsmoker Start:17-Jan-2021 Instruction Type:Provider Instructions for Treatment How to Access Health Informa tion Online using Patient Portal and [employer]rd [employer] Apps Indication:Nonsmoker Start:17-Jan-2021 Instruction Type:Patient Education Patient Instructions Indication:BMI 27.0-27.9,adult Start:06-Dec-2020 Instruction Type:Provider Instructions for Treatment How to Access Health Informa tion Online using Patient Portal and [employer]rd [employer] Apps Indication:BMI 27.0-27.9,adult Start:06-Dec-2020 Instruction Type:Patient Education Patient Instructions Indication:BMI 27.0-27.9,adult Start:29-Nov-2020 Instruction Type:Provider Instructions for Treatment How to Access Health Informa tion Online using Patient Portal and [employer]rd [employer] Apps Indication:BMI 27.0-27.9,adult Start:29-Nov-2020 Instruction Type:Patient Education Patient Instructions Indication:Nonsmoker Start:05-Oct-2020 Instruction Type:Provider Instructions for Treatment How to Access Health Informa tion Online using Patient Portal and [employer]rd [employer] Apps Indication:Nonsmoker Start:05-Oct-2020 Instruction Type:Patient Education Patient Instructions Indication:Nonsmoker Start:10-Sep-2020 Instruction Type:Provider Instructions for Treatment How to Access Health Informa tion Online using Patient Portal and [employer]rd [employer] Apps Indication:Nonsmoker Start:10-Sep-2020 Instruction Type:Patient Education Patient Instructions Indication:BMI 28.0-28.9,adult Start:07-Jul-2020 Instruction Type:Provider Instructions for Treatment How to Access Health Informa tion Online using Patient Portal and [employer]rd [employer] Apps Indication:BMI 28.0-28.9,adult Start:07-Jul-2020 Instruction Type:Patient Education [facility]; [facility] Work Phone: Instructions Name Dates Details Patient Instructions Indication:BMI 28.0-28.9,adult Start:07-Jul-2020 Instruction Type:Provider Instructions for Treatment How to Access Health Informa tion Online using Patient Portal and [employer]rd [employer] Apps Indication:BMI 28.0-28.9,adult Start:07-Jul-2020 Instruction Type:Patient Education Name Dates Details Patient Instructions Indication:BMI 28.0-28.9,adult Start:07-Jul-2020 Instruction Type:Provider Instructions for Treatment How to Access Health Informa tion Online using Patient Portal and [employer]rd [employer] Apps Indication:BMI 28.0-28.9,adult Start:07-Jul-2020 Instruction Type:Patient Education Summary Purpose Family History No Family History Records Found Advance Directives No Advanced Directives Records FoundNo Advanced Directives Records Found Additional Source Comments (unrecognized sect ion and content) No Status Records FoundNo Status Records Found INFORMATION SOURCE (unrecogn ized section and content) DATE CREATED AUTHOR 06/03/2022 [facility] DATE CREATED AUTHOR 'S RENNY SOLIS 09/19/2024 [facility] FOR RECORDS PERTAINING TO PATIENTS WHO ARE OR HAVE BEEN ENROLLED IN A CHEMICAL DEPENDENCY/SUBSTANCEABUSE PROGRAM, SOME INFORMATION MAY BE OMITTED. This clinical summary was aggregated from multiple sources. Caution should be exercised in using it in the provision of clinical care. This summary normalizes information from multiple sources, and as a consequence, information in this document may materially change the coding, format and clinical context of patient data. In addition, data may be omitted in some cases. CLINICAL DECISIONS SHOULD BE BASED ON THE PRIMARY CLINICAL RECORDS. [facility]. provides no warranty or guarantee of the accuracy or completeness of information in this document.
== END | disposition home or self-care (01) ==
LOC: CVS 10:05
PROVIDERS: PCP Nurse Practitioner Family; Referring Provider Nurse Practitioner Family; Visit Provider Nurse Practitioner Family
DX: I82.409 Acute embolism and thrombosis of unspecified deep veins of unspecified lower extremity (principal)
CPT/HCPCS: 93970